=== PATIENT | female | born 1930 | race Caucasian/White ===

== ENCOUNTER 2017-09-03 11:42 | Inpatient (IN) | payer MEDICARE, BC ==
[2017-09-03] MEDS ORDERED: SODIUM CHLORIDE ONE (11:50)
[2017-09-03] MEDS ORDERED: DEXTROSE ONE (11:50)
[2017-09-03] MEDS ORDERED: KCL ONE (11:50)
--- NOTE | 2017-09-03 12:27 | EDM.PDOC ---
ED HPI GENERAL MEDICAL PROBLEM - General Chief Complaint: Lower Extremity Injury/Pain Stated Complaint: POSS STROKE Time Seen by Provider: 09/03/17 12:10 Source of Information: Reports: Patient, RN History Limitations: Reports: No Limitations - History of Present Illness INITIAL COMMENTS - FREE TEXT/NARRATIVE: 87 yr female presents with pain to left leg, family report weakness to left leg and garbled speech. Pt states no pain with to chest and no headache. States some bruising and swelling to left leg for about 1 week. Her son is with her today. Pt is alert and responds appropriately. left leg Pain Score (Numeric/FACES): 6 - Related Data Allergies Allergy/AdvReac Type Severity Reaction Status Date / Time iron Allergy Fainting Verified 02/01/15 18:02 Home Meds: Home Meds Aspirin [Mona Chewable] 81 mg PO DAILY 09/04/17 [History] Clopidogrel [Plavix] 75 mg PO DAILY 09/04/17 [History] Hydrochlorothiazide 25 mg PO DAILY 09/04/17 [History] Latanoprost [Xalatan] 1 drop OP DAILY 09/04/17 [History] Lisinopril [Prinivil] 2 tab PO DAILY 09/04/17 [History] Metoprolol Tartrate [Lopressor] 50 mg PO BID 09/04/17 [History] Multivitamin W/Iron, Minerals [Multivitamins with Iron] 1 each PO DAILY [History] Omeprazole 20 mg PO DAILY 09/04/17 [History] amLODIPine Besylate [Amlodipine Besylate] 10 mg PO DAILY 09/04/17 [History] atorvaSTATin [Lipitor] 40 mg PO BEDTIME 09/04/17 [History] glipiZIDE [Glipizide ER] 10 mg PO DAILY 09/04/17 [History] metFORMIN HCl [Metformin HCl] 1,000 mg PO BIDMEALS 09/04/17 [History] Past Medical History Other HEENT History: blind in R eye, diabetes, 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 Other Cardiovascular History: had a heart pause in between some beats, Other Neuro History: bad balance for a long time at least 5 years- from 2014 Other Hematologic History: iron low years ago got an infusion- alergic reaction - Past Surgical History Other Musculoskeletal Surgeries/Procedures:: L shoulder surgery- cut off ED ROS GENERAL - Review of Systems Review Of Systems: See Below Constitutional: Reports: Weakness, Fatigue, Decreased Appetite HEENT: Reports: No Symptoms, Glasses Respiratory: Reports: No Symptoms Cardiovascular: Reports: No Symptoms Endocrine: Reports: Low Glucose GI/Abdominal: Reports: Decreased Appetite. Denies: Nausea, Stool Incontinence, Vomiting : Reports: No Symptoms Musculoskeletal: Reports: Leg Pain Skin: Reports: No Symptoms Neurological: Reports: Trouble Speaking, Difficulty Walking, Weakness, Change in Speech Psychiatric: Reports: No Symptoms Hematologic/Lymphatic: Reports: No Symptoms Immunologic: Reports: No Symptoms ED EXAM, GENERAL - Physical Exam Exam: See Below Exam Limited By: No Limitations General Appearance: Alert, No Apparent Distress Ears: Hearing Grossly Normal Nose: Normal Inspection Throat/Mouth: Normal Inspection, Normal Voice, No Airway Compromise Head: Atraumatic, Normocephalic Neck: Normal Inspection, Supple, Non-Tender Respiratory/Chest: No Respiratory Distress, Lungs Clear, Normal Breath Sounds Cardiovascular: Normal Peripheral Pulses, Regular Rate, Rhythm, Other (mild swelling to left lower leg) GI/Abdominal: Normal Bowel Sounds, Soft, Non-Tender (Female) Exam: Deferred Rectal (Female) Exam: Deferred Back Exam: Normal Inspection Extremities: Normal Inspection, Leg Pain (left leg pain), Other (left foot pain) . No: Pedal Edema Neurological: Alert, Oriented, Normal Cognition Psychiatric: Normal Affect, Normal Mood Skin Exam: Warm, Dry, Normal Color, Other (Bruising to top of left foot and blister noted to top of foot) Lymphatic: No Adenopathy Course - Vital Signs Last Recorded V/S: Last Vital Signs Temp 98.1 F 09/04/17 01:07 Pulse 76 09/04/17 03:50 Resp 16 09/04/17 03:50 BP 123/47 L 09/04/17 01:07 Pulse Ox 95 09/04/17 01:07 - Orders/Labs/Meds Orders: Active Orders 24 hr Category Date Time Status D Dimer [D-DIMER QUANTITATIVE] [COAG] Stat Lab 09/03/17 12:25 Ordered INR,PT,PROTHROMBIN TIME [COAG] Routine Lab 09/03/17 12:25 Ordered Medication Orders Enoxaparin Sodium (Lovenox) 45 mg SUBCUT Q12H [facility] Last Admin: 09/04/17 06:20 Dose: 40 mg Admin: 09/03/17 18:17 Dose: 45 mg Potassium Chloride/Dextrose/Sod Cl (D5 Ns With 20 Meq Kcl) 1,000 mls @ 200 mls/ hr IV ASDIRECTED [facility] Last Admin: 09/04/17 02:40 Dose: 200 mls/hr Infusion: 09/03/17 16:00 Dose: 75 mls/hr Admin: 09/03/17 14:45 Dose: 200 mls/hr Ceftriaxone Sodium 1 gm/ (Sodium Chloride) 50 mls @ 100 mls/hr IV Q24H [facility] Last Admin: 09/03/17 18:17 Dose: 100 mls/hr Non-Formulary Medication (Hydrocodone/Acetaminophen [Hydrocodon-Acetaminophen 5- 300]) 1 each PO Q6H PRN PRN Reason: Headache Non-Formulary Medication (Lisinopril [Lisinopril]) 30 mg PO DAILY [facility] Tramadol HCl (Ultram) 50 mg PO Q6H PRN PRN Reason: Pain Last Admin: 09/04/17 01:08 Dose: 50 mg Labs: Laboratory Tests 09/03/17 09/03/17 09/03/17 Range/Units 12:25 12:25 12:25 WBC 3.9 L D (4.0-11.0) K/uL RBC 3.25 L (3.80-5.80) M/uL Hgb 11.0 L (11.5-16.5) g/dL Hct 31.5 L (37.0-47.0) % MCV 97 H (76-96) fL MCH 33.8 H (27.0-32.0) pg MCHC 34.9 (31.0-35.0) g/dL RDW 11.9 (11.0-16.0) % Plt Count 135 L D (150-500) K/uL MPV 9.4 (6.0-10.0) fL Neut % (Auto) 93.1 H (45.0-70.0) % Lymph % (Auto) 5.6 L (20.0-40.0) % [place] % (Auto) 1.0 L (3.0-10.0) % Eos % (Auto) 0.0 L (1.0-5.0) % Baso % (Auto) 0.3 (0.0-0.5) % Neut # (Auto) 3.66 (2.00-7.50) K/uL Lymph # (Auto) 0.22 L (1.50-4.00) K/uL [place] # (Auto) 0.04 L (0.20-0.80) K/uL Eos # (Auto) 0.00 L (0.04-0.40) K/uL Baso # (Auto) 0.01 L (0.02-0.10) K/uL PT 10.8 (9.0-11.5) sec INR 1.1 (1.0-3.5) D-Dimer, Quantitative (0-400) ng/mL Sodium 135 L (136-145) mmol/L Potassium 2.8 L* D (3.5-5.1) mmol/L Chloride 95 L (98-107) mmol/L Carbon Dioxide 21.7 D (21.0-32.0) mmol/L Anion Gap 21.1 H (5.0-15.0) mmol/L BUN 26 D (8-26) mg/dL Creatinine 1.32 H D (0.55-1.02) mg/dL Est Cr Clr Drug Dosing TNP Estimated GFR (MDRD) 38 L (>60) MLS/MIN BUN/Creatinine Ratio 19.7 (6-25) Glucose 31 L* D (74-100) mg/dL POC Glucose (74-110) mg/dL Lactic Acid (0.90-1.70) mmol/L Calcium 8.8 (8.5-10.1) mg/dL Total Bilirubin 1.3 H D (0.0-1.0) mg/dL AST 31 (15-37) U/L ALT 25 (12-78) U/L Alkaline Phosphatase 151 H (46-116) U/L Troponin I (0.000-0.060) ng/mL Total Protein 7.4 (6.4-8.2) g/dL Albumin 3.2 L (3.4-5.0) g/dL Globulin 4.2 (2.2-4.2) g/dL Albumin/Globulin Ratio 0.8 (0.8-2.0) TSH, Ultra Sensitive (0.358-3.740) uIU/mL 09/03/17 09/03/17 09/03/17 Range/Units 12:25 12:25 12:25 WBC (4.0-11.0) K/uL RBC (3.80-5.80) M/uL Hgb (11.5-16.5) g/dL Hct (37.0-47.0) % MCV (76-96) fL MCH (27.0-32.0) pg MCHC (31.0-35.0) g/dL RDW (11.0-16.0) % Plt Count (150-500) K/uL MPV (6.0-10.0) fL Neut % (Auto) (45.0-70.0) % Lymph % (Auto) (20.0-40.0) % [place] % (Auto) (3.0-10.0) % Eos % (Auto) (1.0-5.0) % Baso % (Auto) (0.0-0.5) % Neut # (Auto) (2.00-7.50) K/uL Lymph # (Auto) (1.50-4.00) K/uL [place] # (Auto) (0.20-0.80) K/uL Eos # (Auto) (0.04-0.40) K/uL Baso # (Auto) (0.02-0.10) K/uL PT (9.0-11.5) sec INR (1.0-3.5) D-Dimer, Quantitative 4240 H (0-400) ng/mL Sodium (136-145) mmol/L Potassium (3.5-5.1) mmol/L Chloride (98-107) mmol/L Carbon Dioxide (21.0-32.0) mmol/L Anion Gap (5.0-15.0) mmol/L BUN (8-26) mg/dL Creatinine (0.55-1.02) mg/dL Est Cr Clr Drug Dosing Estimated GFR (MDRD) (>60) MLS/MIN BUN/Creatinine Ratio (6-25) Glucose (74-100) mg/dL POC Glucose (74-110) mg/dL Lactic Acid (0.90-1.70) mmol/L Calcium (8.5-10.1) mg/dL Total Bilirubin (0.0-1.0) mg/dL AST (15-37) U/L ALT (12-78) U/L Alkaline Phosphatase (46-116) U/L Troponin I < 0.017 (0.000-0.060) ng/mL Total Protein (6.4-8.2) g/dL Albumin (3.4-5.0) g/dL Globulin (2.2-4.2) g/dL Albumin/Globulin Ratio (0.8-2.0) TSH, Ultra Sensitive 1.825 (0.358-3.740) uIU/mL 09/03/17 09/03/17 09/03/17 Range/Units 12:39 13:17 13:40 WBC (4.0-11.0) K/uL RBC (3.80-5.80) M/uL Hgb (11.5-16.5) g/dL Hct (37.0-47.0) % MCV (76-96) fL MCH (27.0-32.0) pg MCHC (31.0-35.0) g/dL RDW (11.0-16.0) % Plt Count (150-500) K/uL MPV (6.0-10.0) fL Neut % (Auto) (45.0-70.0) % Lymph % (Auto) (20.0-40.0) % [place] % (Auto) (3.0-10.0) % Eos % (Auto) (1.0-5.0) % Baso % (Auto) (0.0-0.5) % Neut # (Auto) (2.00-7.50) K/uL Lymph # (Auto) (1.50-4.00) K/uL [place] # (Auto) (0.20-0.80) K/uL Eos # (Auto) (0.04-0.40) K/uL Baso # (Auto) (0.02-0.10) K/uL PT (9.0-11.5) sec INR (1.0-3.5) D-Dimer, Quantitative (0-400) ng/mL Sodium (136-145) mmol/L Potassium (3.5-5.1) mmol/L Chloride (98-107) mmol/L Carbon Dioxide (21.0-32.0) mmol/L Anion Gap (5.0-15.0) mmol/L BUN (8-26) mg/dL Creatinine (0.55-1.02) mg/dL Est Cr Clr Drug Dosing Estimated GFR (MDRD) (>60) MLS/MIN BUN/Creatinine Ratio (6-25) Glucose (74-100) mg/dL POC Glucose 39 L* 41 L* (74-110) mg/dL Lactic Acid 7.60 H (0.90-1.70) mmol/L Calcium (8.5-10.1) mg/dL Total Bilirubin (0.0-1.0) mg/dL AST (15-37) U/L ALT (12-78) U/L Alkaline Phosphatase (46-116) U/L Troponin I (0.000-0.060) ng/mL Total Protein (6.4-8.2) g/dL Albumin (3.4-5.0) g/dL Globulin (2.2-4.2) g/dL Albumin/Globulin Ratio (0.8-2.0) TSH, Ultra Sensitive (0.358-3.740) uIU/mL Meds: Medications Generic Name Dose Route Start Last Admin Trade Name Freq PRN Reason Stop Dose Admin Enoxaparin Sodium 45 mg 09/03/17 16:15 09/04/17 06:20 Lovenox SUBCUT 40 mg Q12H [facility] Administration Potassium Chloride/Dextrose/Sod Cl 1,000 mls @ 200 mls/hr 09/03/17 14:45 12/13 02:40 D5 Ns With 20 Meq Kcl IV 200 mls/hr ASDIRECTED [facility] Administration Ceftriaxone Sodium 1 gm/ 50 mls @ 100 mls/hr 09/03/17 18:00 09/03/17 18:17 Sodium Chloride IV 100 mls/hr Q24H [facility] Administration Non-Formulary Medication 1 each 09/03/17 17:06 Hydrocodone/Acetaminophen [Hydrocodon-Acetaminophen 5-300] PO Q6H PRN Headache Non-Formulary Medication 30 mg 09/04/17 08:00 Lisinopril [Lisinopril] PO DAILY [facility] Tramadol HCl 50 mg 09/03/17 22:50 09/04/17 01:08 Ultram PO 50 mg Q6H PRN Administration Pain Discontinued Medications Generic Name Dose Route Start Last Admin Trade Name Gissell PRN Reason Stop Dose Admin Dextrose/Water 50 ml 09/03/17 14:43 09/03/17 14:52 Dextrose 50% In Water IVPUSH 09/03/17 14:44 50 ml ONETIME ONE Administration Potassium Chloride/Dextrose/Sod Cl Confirm 09/03/17 14:23 09/03/17 17:38 D5 Ns With 20 Meq Kcl Administered 09/03/17 14:24 Not Given Dose 1,000 mls @ as directed .ROUTE .STK-MED ONE Potassium Chloride 40 meq 09/03/17 13:04 09/03/17 13:15 Klor-Con M20 PO 09/03/17 13:05 40 meq ONETIME ONE Administration Tramadol HCl Confirm 09/03/17 23:02 09/04/17 01:08 Ultram Administered 09/03/17 23:03 Not Given Dose 50 mg .ROUTE .STK-MED ONE - Re-Assessments/Exams Free Text/Narrative Re-Assessment/Exam: 09/03/17 16:[address] results and TC from radiologist confirming head CT is negative. D-dimer checked and is positive. Pt does have mild swelling to left leg and bruising to left foot. hypoglycemia and hypokalemia noted. [place] juice and sandwich given to pt and tolerated well. Repeat blood sugar still hypoglycemia. KCL 40 meq liquid PO given and tolerated well. Chest x- ray completed and no consolidation noted. Pain to left ankle and foot. X-ray completed and no fracture noted. Consult with Dr Marilu MD back-up today, recommend admit to observation. Dr Michel assess pt and reviewed labs and x-ray with this provider. Reviewed results with pt and son and discussed plan. Will send for U/S tomorrow to check for DVT. Will start Lovenox now, prophylactically. Lactic acid is elevated and no leukocytosis noted, but elevated neutrophils noted. Will check blood cultures X 2. Mild temperature noted. Pt offers minimal complaints, just pain to foot and no appetite. Pt is alert and sitting with HOB elevated 60* and no respiratory distress, no pedal edema, and no crackles to lungs and no chest pain. Will check U/A when pt able to void or get sterile quick cath. IV D5W 50 Ml given, then started IV with D5NS with 20 Kcl started at 200cc/hr. Will monitor pt closely for signs of infection, and monitor blood sugars, and recheck labs in am. Departure - Departure Time of Disposition: 14:55 Disposition: Refer to Observation Condition: Fair Clinical Impression: Hypokalemia, Hypoglycemia, Pain in left foot - Discharge Information - Problem List & Annotations (1) Hypokalemia SNOMED Code(s): 23031277 Code(s): E87.6 - HYPOKALEMIA Status: Acute Current Visit: Yes (2) Hypoglycemia SNOMED Code(s): 265136167 Code(s): E16.2 - HYPOGLYCEMIA, UNSPECIFIED Status: Acute Current Visit: Yes (3) Pain in left foot SNOMED Code(s): 76366510 Code(s): M79.672 - PAIN IN LEFT FOOT Status: Acute Current Visit: Yes (4) Hypothyroid SNOMED Code(s): 16745339 Code(s): E03.9 - HYPOTHYROIDISM, UNSPECIFIED Status: Acute Current Visit : Yes - Problem List Review Problem List Initiated/Reviewed/Updated: Yes - My Orders Last 24 Hours: My Active Orders 09/03/17 12:25 D Dimer [D-DIMER QUANTITATIVE] [COAG] Stat INR,PT,PROTHROMBIN TIME [COAG] Routine - Assessment/Plan Last 24 Hours: My Active Orders 09/03/17 12:25 D Dimer [D-DIMER QUANTITATIVE] [COAG] Stat INR,PT,PROTHROMBIN TIME [COAG] Routine Plan: 09/03/17 16:[address] results and TC from radiologist confirming head CT is negative. D-dimer checked and is positive. Pt does have mild swelling to left leg and bruising to left foot. hypoglycemia and hypokalemia noted. [place] juice and sandwich given to pt and tolerated well. Repeat blood sugar still hypoglycemia. KCL 40 meq liquid PO given and tolerated well. Chest x- ray completed and no consolidation noted. Pain to left ankle and foot. X-ray completed and no fracture noted. Consult with Dr Marilu MD back-up today, recommend admit to observation. Dr Michel assess pt and reviewed labs and x-ray with this provider. Reviewed results with pt and son and discussed plan. Will send for U/S tomorrow to check for DVT. Will start Lovenox now, prophylactically. Lactic acid is elevated and no leukocytosis noted, but elevated neutrophils noted. Will check blood cultures X 2. Mild temperature noted. Pt offers minimal complaints, just pain to foot and no appetite. Pt is alert and sitting with HOB elevated 60* and no respiratory distress, no pedal edema, and no crackles to lungs and no chest pain. Will check U/A when pt able to void or get sterile quick cath. IV D5W 50 Ml given, then started IV with D5NS with 20 Kcl started at 200cc/hr. Will monitor pt closely for signs of infection, and monitor blood sugars, and recheck labs in am. 17:31 U/A obtained. Negative nitrite and negative leuk est. With this increase in lactic acid and low WBC with elevated neutrophil, will start Rocephin 1 gm IV now and daily.
[2017-09-03] MEDS ORDERED: Potassium Chloride 20 MEQ Tab.ER PO ONE (13:04)
[2017-09-03] MEDS: Dextrose 5%-0.9% NaCl with KCl 1,000 ML ONE ×2 (14:40→17:38)
[2017-09-03] MEDS ORDERED: 50% Dextrose in Water 50 ML Syringe IVPUSH ONE (14:43)
[2017-09-03] MEDS: Dextrose 5%-0.9% NaCl with KCl 1,000 ML IV SCH (14:45)
[2017-09-03] MEDS ORDERED: [UNRECOGNIZED DRUG - OTHER] PO PRN (17:06)
[2017-09-03] MEDS ORDERED: ACETAMINOPHEN PO PRN (17:06)
[2017-09-03] MEDS ORDERED: HYDROCODONE PO PRN (17:06)
--- NOTE | 2017-09-03 17:58 | CT ---
DATE OF SERVICE: 09/03/17 CLINICAL DATA: POSSIBLE STROKE UNENHANCED BRAIN CT: Multislice acquisition through the brain without IV contrast was performed. Comparison is made to a prior exam dated 02/01/15. There is diffuse cerebral atrophy. There are periventricular lucencies bilaterally consistent with small vessel ischemic change. No masses or mass effect. No intracranial hemorrhage. No evidence of acute or subacute infarct. No osseous abnormalities. IMPRESSION: No acute intracranial abnormalities. [id number] [facility]
--- NOTE | 2017-09-03 18:00 | CR ---
DATE OF SERVICE: 09/03/17 CLINICAL DATA: possible stroke AP PORTABLE CHEST: No priors. The heart size is within normal limits. The aorta is ectatic. 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 The lungs are clear. No pneumothorax. No pleural effusions. No areas of consolidation. IMPRESSION: No evidence of acute intrathoracic disease. [id number] [facility]
--- NOTE | 2017-09-03 18:04 | CR ---
DATE OF SERVICE: 09/03/17 CLINICAL DATA: pain to foot LEFT FOOT: There is diffuse osteopenia. There are osteoarthritic changes involving multiple joints. There is a faint lucency through the base of the 5th metatarsal which may represent a nondisplaced fracture. Clinical correlation is recommended. No other evidence of fracture. There are vascular calcifications in the soft tissues. [id number] [facility]
--- NOTE | 2017-09-03 18:12 | CR ---
DATE OF SERVICE: 09/03/17 CLINICAL DATA: foot and ankle pain LEFT ANKLE: There is diffuse osteopenia. No acute fracture or dislocation. No lytic or blastic bone lesions. There are vascular calcifications in the soft tissues. [id number] [facility]
[2017-09-03] MEDS: Enoxaparin 40 MG/0.4 ML Syringe SUBCUT SCH (18:17)
[2017-09-03] MEDS: cefTRIAXone 1 GM in Sodium Chloride 0.9% 50 ML IV SCH (18:17)
[2017-09-03] MEDS ORDERED: traMADol 50 MG Tab ONE (23:02)
[2017-09-04] MEDS: traMADol 50 MG Tab PO PRN ×3 (01:08→20:24)
[2017-09-04] MEDS: Dextrose 5%-0.9% NaCl with KCl 1,000 ML IV SCH (02:40)
[2017-09-04] MEDS: Enoxaparin 40 MG/0.4 ML Syringe SUBCUT SCH (06:20)
[2017-09-04] MEDS ORDERED: Clopidogrel 75 MG Tab PO SCH (08:00)
[2017-09-04] MEDS ORDERED: LISINOPRIL 30 MG PO SCH (08:00)
[2017-09-04] MEDS ORDERED: Lisinopril 20 MG Tab PO SCH (08:45)
[2017-09-04] MEDS ORDERED: Potassium Chloride 20 MEQ Tab.ER PO SCH (08:45)
[2017-09-04] MEDS ORDERED: Metoprolol Tartrate 50 MG Tab ONE (09:08)
[2017-09-04] MEDS ORDERED: Potassium Chloride 20 MEQ Tab.ER ONE (09:09)
[2017-09-04] MEDS ORDERED: metFORMIN 1,000 MG Tab ONE (09:09)
[2017-09-04] MEDS ORDERED: Sodium Chloride 0.45% with KCl 1,000 ML ONE (09:10)
[2017-09-04] MEDS: NS + KCl 20mEq/L 1,000 ML IV SCH (10:15)
[2017-09-04] MEDS: Pantoprazole 40 MG Vial IVPUSH SCH (10:15)
[2017-09-04] MEDS: amLODIPine 10 MG Tab PO SCH (10:15)
[2017-09-04] MEDS: Metoprolol Tartrate 50 MG Tab PO SCH ×2 (10:28→20:12)
[2017-09-04] MEDS: Non-Formulary Medication 1 Each (Latanoprost [Xalatan 0.005% Ophth Soln] 1 DROP) EYEBOTH SCH (13:34)
--- NOTE | 2017-09-04 15:02 | PCM.PN ---
- General Info Date of Service: 09/04/17 Admission Dx/Problem (Free Text): sepsis Subjective Update: Pt states she is feeling better, but is still having some pain to her left foot and ankle. Functional Status: Reports: Tolerating Diet, Urinating - Review of Systems General: Reports: Weakness HEENT: Reports: No Symptoms, Glasses Pulmonary: Reports: No Symptoms. Denies: Shortness of Breath, Cough Cardiovascular: Reports: No Symptoms. Denies: Chest Pain, Dyspnea on Exertion, Lightheadedness Gastrointestinal: Reports: No Symptoms. Denies: Abdominal Pain, Constipation, Decreased Appetite Genitourinary: Reports: Other (decreased urination) Musculoskeletal: Reports: Foot Pain (left foot pain) Skin: Reports: Other (blister to top of right foot, cut toe on Sunday when trimming toenails) Neurological: Reports: No Symptoms Psychiatric: Reports: No Symptoms - Patient Data Vitals - Most Recent: Last Vital Signs Temp 97.6 F 09/04/17 12:29 Pulse 81 09/04/17 12:29 Resp 16 09/04/17 12:29 BP 116/49 L 09/04/17 12:29 Pulse Ox 92 L 09/04/17 12:29 Weight - Most Recent: 111 lb 9.6 oz I&O - Last 24 Hours: Intake & Output 09/03/17 09/04/17 09/04/17 22:59 06:59 14:59 Intake Total 1620 Balance 1620 Lab Results Last 24 Hours: Laboratory Results - last 24 hr 09/03/17 09/03/17 09/03/17 Range/Units 15:11 17:00 17:20 WBC (4.0-11.0) K/uL RBC (3.80-5.80) M/uL Hgb (11.5-16.5) g/dL Hct (37.0-47.0) % MCV (76-96) fL MCH (27.0-32.0) pg MCHC (31.0-35.0) g/dL RDW (11.0-16.0) % Plt Count (150-500) K/uL MPV (6.0-10.0) fL Neut % (Auto) (45.0-70.0) % Lymph % (Auto) (20.0-40.0) % [place] % (Auto) (3.0-10.0) % Eos % (Auto) (1.0-5.0) % Baso % (Auto) (0.0-0.5) % Neut # (Auto) (2.00-7.50) K/uL Lymph # (Auto) (1.50-4.00) K/uL [place] # (Auto) (0.20-0.80) K/uL Eos # (Auto) (0.04-0.40) K/uL Baso # (Auto) (0.02-0.10) K/uL Sodium (136-145) mmol/L Potassium (3.5-5.1) mmol/L Chloride (98-107) mmol/L Carbon Dioxide (21.0-32.0) mmol/L Anion Gap (5.0-15.0) mmol/L BUN (8-26) mg/dL Creatinine (0.55-1.02) mg/dL Est Cr Clr Drug Dosing mL/min Estimated GFR (MDRD) (>60) MLS/MIN BUN/Creatinine Ratio (6-25) Glucose (74-100) mg/dL POC Glucose 170 H 194 H (74-110) mg/dL Calcium (8.5-10.1) mg/dL Urine Color Yellow Urine Appearance Slightly cloudy (CLEAR) Urine pH 5.5 (5.0-8.0) Ur Specific [place] 1.015 (1.003-1.030) Urine Protein 100 H (NEGATIVE) mg/dL Urine Glucose (UA) Negative (NEGATIVE) mg/dL Urine Ketones Trace H (NEGATIVE) mg/dL Urine Occult Blood Small H (NEGATIVE) Urine Nitrite Negative (NEGATIVE) Urine Bilirubin Negative (NEGATIVE) Urine Urobilinogen 0.2 (0.2-1.0) E.U./dL Ur Leukocyte Esterase Negative (NEGATIVE) Urine RBC 0-5 H /HPF Urine WBC 0-5 H /HPF Urine Bacteria Many H /HPF 09/04/17 09/04/17 09/04/17 Range/Units 01:19 07:20 07:20 WBC 6.9 D (4.0-11.0) K/uL RBC 2.62 L (3.80-5.80) M/uL Hgb 8.7 L D (11.5-16.5) g/dL Hct 24.9 L D (37.0-47.0) % MCV 95 (76-96) fL MCH 33.2 H (27.0-32.0) pg MCHC 34.9 (31.0-35.0) g/dL RDW 11.7 (11.0-16.0) % Plt Count 83 L D (150-500) K/uL MPV 10.4 H (6.0-10.0) fL Neut % (Auto) 86.7 H (45.0-70.0) % Lymph % (Auto) 7.4 L (20.0-40.0) % [place] % (Auto) 5.8 (3.0-10.0) % Eos % (Auto) 0.1 L (1.0-5.0) % Baso % (Auto) 0.0 (0.0-0.5) % Neut # (Auto) 6.00 (2.00-7.50) K/uL Lymph # (Auto) 0.51 L (1.50-4.00) K/uL [place] # (Auto) 0.40 (0.20-0.80) K/uL Eos # (Auto) 0.01 L (0.04-0.40) K/uL Baso # (Auto) 0.00 L (0.02-0.10) K/uL Sodium 135 L (136-145) mmol/L Potassium 3.1 L (3.5-5.1) mmol/L Chloride 99 (98-107) mmol/L Carbon Dioxide 23.1 (21.0-32.0) mmol/L Anion Gap 16.0 H (5.0-15.0) mmol/L BUN 31 H (8-26) mg/dL Creatinine 1.71 H D (0.55-1.02) mg/dL Est Cr Clr Drug Dosing 17.25 mL/min Estimated GFR (MDRD) 28 L (>60) MLS/MIN BUN/Creatinine Ratio 18.1 (6-25) Glucose 144 H D (74-100) mg/dL POC Glucose 154 H (74-110) mg/dL Calcium 8.3 L (8.5-10.1) mg/dL Urine Color Urine Appearance (CLEAR) Urine pH (5.0-8.0) Ur Specific [place] (1.003-1.030) Urine Protein (NEGATIVE) mg/dL Urine Glucose (UA) (NEGATIVE) mg/dL Urine Ketones (NEGATIVE) mg/dL Urine Occult Blood (NEGATIVE) Urine Nitrite (NEGATIVE) Urine Bilirubin (NEGATIVE) Urine Urobilinogen (0.2-1.0) E.U./dL Ur Leukocyte Esterase (NEGATIVE) Urine RBC /HPF Urine WBC /HPF Urine Bacteria /HPF 09/04/17 Range/Units 14:00 WBC (4.0-11.0) K/uL RBC (3.80-5.80) M/uL Hgb 9.1 L (11.5-16.5) g/dL Hct 25.8 L (37.0-47.0) % MCV (76-96) fL MCH (27.0-32.0) pg MCHC (31.0-35.0) g/dL RDW (11.0-16.0) % Plt Count (150-500) K/uL MPV (6.0-10.0) fL Neut % (Auto) (45.0-70.0) % Lymph % (Auto) (20.0-40.0) % [place] % (Auto) (3.0-10.0) % Eos % (Auto) (1.0-5.0) % Baso % (Auto) (0.0-0.5) % Neut # (Auto) (2.00-7.50) K/uL Lymph # (Auto) (1.50-4.00) K/uL [place] # (Auto) (0.20-0.80) K/uL Eos # (Auto) (0.04-0.40) K/uL Baso # (Auto) (0.02-0.10) K/uL Sodium (136-145) mmol/L Potassium (3.5-5.1) mmol/L Chloride (98-107) mmol/L Carbon Dioxide (21.0-32.0) mmol/L Anion Gap (5.0-15.0) mmol/L BUN (8-26) mg/dL Creatinine (0.55-1.02) mg/dL Est Cr Clr Drug Dosing mL/min Estimated GFR (MDRD) (>60) MLS/MIN BUN/Creatinine Ratio (6-25) Glucose (74-100) mg/dL POC Glucose (74-110) mg/dL Calcium (8.5-10.1) mg/dL Urine Color Urine Appearance (CLEAR) Urine pH (5.0-8.0) Ur Specific [place] (1.003-1.030) Urine Protein (NEGATIVE) mg/dL Urine Glucose (UA) (NEGATIVE) mg/dL Urine Ketones (NEGATIVE) mg/dL Urine Occult Blood (NEGATIVE) Urine Nitrite (NEGATIVE) Urine Bilirubin (NEGATIVE) Urine Urobilinogen (0.2-1.0) E.U./dL Ur Leukocyte Esterase (NEGATIVE) Urine RBC /HPF Urine WBC /HPF Urine Bacteria /HPF [place] Results Last 24 Hours: Microbiology 09/04/17 09:17 Gram Stain - Preliminary Foot, Left 09/03/17 14:56 Clostridium difficile (PCR) - Final Stool / Feces NEGATIVE CDIFF TOXIN Med Orders - Current: Current Medications Hydrocodone Bitart/Acetaminophen ([place] 325-5 Mg) 1 tab PO Q6H PRN PRN Reason: Pain Amlodipine Besylate (Norvasc) 10 mg PO DAILY [facility] Last Admin: 09/04/17 10:15 Dose: 10 mg Atorvastatin Calcium (Lipitor) 40 mg PO DAILY [facility] Clopidogrel Bisulfate (Plavix) 75 mg PO DAILY [facility] Last Admin: 09/04/17 10:38 Dose: Not Given Ceftriaxone Sodium 1 gm/ (Sodium Chloride) 50 mls @ 100 mls/hr IV Q24H [facility] Last Admin: 09/03/17 18:17 Dose: 100 mls/hr Potassium Chloride/Sodium Chloride (Normal Saline With 20 Meq Kcl) 1,000 mls @ 75 mls/hr IV ASDIRECTED [facility] Last Admin: 09/04/17 10:15 Dose: 75 mls/hr Lisinopril (Prinivil) 40 mg PO DAILY [facility] Last Admin: 09/04/17 10:15 Dose: 40 mg Metformin HCl (Glucophage) 1,000 mg PO BIDMEALS [facility] Metoprolol Tartrate (Lopressor) 50 mg PO BID [facility] Last Admin: 09/04/17 10:28 Dose: 50 mg Non-Formulary Medication (Latanoprost [Xalatan 0.005% Ophth Soln]) 1 drop EYEBOTH DAILY [facility] Last Admin: 09/04/17 13:34 Dose: Not Given Omeprazole (Omeprazole) 20 mg PO DAILY [facility] Pantoprazole Sodium (Protonix Iv) 40 mg IVPUSH DAILY [facility] Last Admin: 09/04/17 10:15 Dose: 40 mg Potassium Chloride (Klor-Con M20) 20 meq PO DAILY [facility] Last Admin: 09/04/17 10:15 Dose: 20 meq Tramadol HCl (Ultram) 50 mg PO Q6H PRN PRN Reason: Pain Last Admin: 09/04/17 08:48 Dose: 50 mg Discontinued Medications Dextrose/Water (Dextrose 50% In Water) 50 ml IVPUSH ONETIME ONE Stop: 09/03/17 14:44 Last Admin: 09/03/17 14:52 Dose: 50 ml Enoxaparin Sodium (Lovenox) 45 mg SUBCUT Q12H [facility] Last Admin: 09/04/17 06:20 Dose: 40 mg Potassium Chloride/Dextrose/Sod Cl (D5 Ns With 20 Meq Kcl) Confirm Administered Dose 1,000 mls @ as directed .ROUTE .STK-MED ONE Stop: 09/03/17 14:24 Last Admin: 09/03/17 17:38 Dose: Not Given Potassium Chloride/Dextrose/Sod Cl (D5 Ns With 20 Meq Kcl) 1,000 mls @ 200 mls/ hr IV ASDIRECTED [facility] Last Admin: 09/04/17 02:40 Dose: 200 mls/hr Potassium Chloride/Sodium Chloride (1/2 Ns With 20 Meq Kcl) Confirm Administered Dose 1,000 mls @ as directed .ROUTE .STK-MED ONE Stop: 09/04/17 09:11 Last Admin: 09/04/17 10:31 Dose: Not Given Metformin HCl (Glucophage) Confirm Administered Dose 1,000 mg .ROUTE .STK-MED ONE Stop: 09/04/17 09:10 Last Admin: 09/04/17 10:07 Dose: Not Given Metoprolol Tartrate (Lopressor) Confirm Administered Dose 50 mg .ROUTE .STK-MED ONE Stop: 09/04/17 09:09 Last Admin: 09/04/17 10:06 Dose: Not Given Non-Formulary Medication (Hydrocodone/Acetaminophen [Hydrocodon-Acetaminophen 5- 300]) 1 each PO Q6H PRN PRN Reason: Headache Potassium Chloride (Klor-Con M20) 40 meq PO ONETIME ONE Stop: 09/03/17 13:05 Last Admin: 09/03/17 13:15 Dose: 40 meq Potassium Chloride (Klor-Con M20) Confirm Administered Dose 20 meq .ROUTE .STK- MED ONE Stop: 09/04/17 09:10 Last Admin: 09/04/17 10:06 Dose: Not Given Potassium Chloride/Dextrose/Sod Cl (D5 Ns With 20 Meq Kcl) 1,000 ml .ROUTE .STK -MED ONE Stop: 09/03/17 11:51 Tramadol HCl (Ultram) Confirm Administered Dose 50 mg .ROUTE .STK-MED ONE Stop: 09/03/17 23:03 Last Admin: 09/04/17 01:08 Dose: Not Given - Exam Quality Assessment: No: Supplemental Oxygen, Urine Catheter General: Alert, Oriented, No Acute Distress HEENT: Mucous Membr. Moist/[place] Neck: Supple, Trachea Midline Lungs: Clear to Auscultation, Normal Respiratory Effort. No: Decreased Breath Sounds, Crackles Cardiovascular: Regular Rate, Regular Rhythm GI/Abdominal Exam: Normal Bowel Sounds, Soft, Non-Tender, No Distention (Female) Exam: Deferred Back Exam: Normal Inspection Extremities: No Pedal Edema, Normal Capillary Refill, Other (foot and ankle pain ) Peripheral Pulses: 2+: Dorsalis Pedis (L), Dorsalis Pedis (R) Skin: Warm, Dry, Other (blister, slightly larger than yesterday, to top of left foot. Small laceration to toe on left foot) Neurological: No New Focal Deficit, Normal Speech Psy/Mental Status: Alert, Normal Affect, Normal Mood - Problem List & Annotations (1) Hypokalemia SNOMED Code(s): 69129752 Code(s): E87.6 - HYPOKALEMIA Status: Acute Current Visit: Yes (2) Hypoglycemia SNOMED Code(s): 679611543 Code(s): E16.2 - HYPOGLYCEMIA, UNSPECIFIED Status: Acute Current Visit: Yes (3) Pain in left foot SNOMED Code(s): 63016411 Code(s): M79.672 - PAIN IN LEFT FOOT Status: Acute Current Visit: Yes (4) Hypothyroid SNOMED Code(s): 38394474 Code(s): E03.9 - HYPOTHYROIDISM, UNSPECIFIED Status: Acute Current Visit : Yes (5) Sepsis SNOMED Code(s): 70523323 Code(s): A41.9 - SEPSIS, UNSPECIFIED ORGANISM Status: Acute Current Visit : Yes - Problem List Review Problem List Initiated/Reviewed/Updated: Yes - My Orders Last 24 Hours: My Active Orders 09/03/17 14:40 Patient Status [ADT] Routine 09/03/17 14:56 CLOSTRIDIUM DIFFICILE BY PCR [RM] Stat 09/03/17 14:58 Telemetry Monitoring [Cardiac Monitoring] [RC] 09/03/17 15:15 Insert Urinary Catheter [OM.PC] Stat 09/03/17 15:34 CULTURE BLOOD [BC] Stat 09/03/17 16:27 CULTURE BLOOD [BC] Stat 09/03/17 17:00 CULTURE URINE [RM] Routine 09/03/17 18:00 cefTRIAXone [Rocephin] 1 gm Sodium Chloride 0.9% [Normal Saline] 50 ml IV Q24H 09/03/17 22:50 traMADol [Ultram] 50 mg PO Q6H PRN 09/04/17 01:10 Blood Glucose Check, Bedside [RC] ,,09/04/17 06:58 Urinary Catheter Assessment [RC] ASDIRECTED 09/04/17 08:00 Clopidogrel [Plavix] 75 mg PO DAILY Pantoprazole [ProTONIX IV] 40 mg IVPUSH DAILY 09/04/17 08:14 Guaiac [OCCULT BLOOD DIAGNOSTIC] [OP] Routine 09/04/17 08:29 Patient Status [ADT] Routine Height and Weight [RC] DAILY Oxygen Therapy [RC] PRN Up With Assistance [RC] ASDIRECTED Vital Signs [RC] Q4H 09/04/17 08:45 Latanoprost [Xalatan 0.005% Ophth Soln] 1 drop EYEBOTH DAILY Lisinopril [Prinivil] 40 mg PO DAILY Metoprolol Tartrate [Lopressor] 50 mg PO BID NS + KCl 20mEq/L [Normal Saline with 20 mEq KCl] 1,000 ml IV ASDIRECTED Potassium Chloride [Klor-Con M20] 20 meq PO DAILY amLODIPine [Norvasc] 10 mg PO DAILY 09/04/17 09:17 CULTURE WOUND + SMEAR [RM] Routine 09/04/17 10:26 CULTURE MRSA SURVEY [RM] Routine 09/04/17 14:05 Acetaminophen/HYDROcodone [[place] 325-5 MG] 1 tab PO Q6H PRN 09/04/17 17:00 metFORMIN [Glucophage] 1,000 mg PO BIDMEALS 09/04/17 Breakfast Consistent Carbohydrate Diet [DIET] 09/05/17 07:30 BASIC METABOLIC PANEL,BMP [CHEM] Routine CBC WITH AUTO DIFF [HEME] Routine 09/05/17 08:00 Omeprazole 20 mg PO DAILY atorvaSTATin [Lipitor] 40 mg PO DAILY - Plan Plan:: Pt is feeling better and looking better. She is sitting in the recliner chair and having breakfast. Dr Michel was able to consult and visit pt this am and aspirated blister to right foot. Sepsis probably related to cut on toe from pt trimming toenails on Sunday and use of rubber clogs to feet with little ventilation and heat to area. Will keep area clean and dry. Waiting from blood cultures, urine culture and now aspirate from blister. Platelets and hgb lower today. Will check stool for hemoccult and start pt on Protonix. Will hold the lovenox, ASA and Plavix and repeat H/H this afternoon. Pt offers no complaints of GI distress. She has an improved appetite. Her blood sugar is back to normal. Will hold the glipizide. IV fluids will be changed to NS w 20 meq KCL at 75 cc/hr. Will add daily potassium 20 meq PO after a meal. Potassium was low today. No temperature noted and BP is normal. Will start pt on home medications, but hold the Glipizide, vitamen, hold Atorvastatin, and hold th Plavix. Continue with Rocephin 1 gm IV daily, pending results of cultures. Urine remains straw colored and not dark. Continue to monitor pt closely for any signs on increase in infection.
[2017-09-04] MEDS: metFORMIN 1,000 MG Tab PO SCH (18:05)
[2017-09-04] MEDS: cefTRIAXone 1 GM in Sodium Chloride 0.9% 50 ML IV SCH (18:05)
[2017-09-04] MEDS: Acetaminophen/HYDROcodone 325-5 MG Tab PO PRN (19:15)
[2017-09-05] MEDS: NS + KCl 20mEq/L 1,000 ML IV SCH ×2 (00:29→00:30)
[2017-09-05] MEDS ORDERED: Omeprazole 20 MG Cap.CR PO SCH (08:00)
[2017-09-05] MEDS ORDERED: atorvaSTATin 40 MG Tab PO SCH (08:00)
[2017-09-05] MEDS: amLODIPine 10 MG Tab PO SCH (08:24)
[2017-09-05] MEDS: Pantoprazole 40 MG Vial IVPUSH SCH (08:24)
[2017-09-05] MEDS: Metoprolol Tartrate 50 MG Tab PO SCH ×2 (08:25→19:30)
[2017-09-05] MEDS ORDERED: Enoxaparin 60 MG/0.6 ML Syringe ONE (11:06)
[2017-09-05] MEDS ORDERED: Enoxaparin 40 MG/0.4 ML Syringe ONE (11:06)
[2017-09-05] MEDS: Acetaminophen/HYDROcodone 325-5 MG Tab PO PRN (11:29)
[2017-09-05] MEDS: Non-Formulary Medication 1 Each (Latanoprost [Xalatan 0.005% Ophth Soln] 1 DROP) EYEBOTH SCH (16:43)
[2017-09-05] MEDS: metFORMIN 1,000 MG Tab PO SCH ×2 (16:43→18:19)
--- NOTE | 2017-09-05 17:15 | PCM.PN ---
- General Info Date of Service: 09/05/17 Admission Dx/Problem (Free Text): sepsis R/O DVT Hyperkalemia Low platelets Left leg pain Subjective Update: Pt states she is feeling tired after her company yesterday, but is feeling better. Continues with pain to left lower leg and foot when touched. Functional Status: Reports: Tolerating Diet, Urinating - Review of Systems General: Reports: Fatigue. Denies: Fever, Chills HEENT: Reports: No Symptoms, Glasses Pulmonary: Reports: No Symptoms. Denies: Shortness of Breath, Cough Cardiovascular: Reports: No Symptoms. Denies: Chest Pain, Dyspnea on Exertion Gastrointestinal: Reports: No Symptoms Genitourinary: Reports: No Symptoms Musculoskeletal: Reports: Leg Pain Skin: Reports: Other (redness to top of foot) Neurological: Reports: No Symptoms Psychiatric: Reports: No Symptoms - Patient Data Vitals - Most Recent: Last Vital Signs Temp 98.6 F 09/05/17 08:33 Pulse 92 09/05/17 08:33 Resp 20 09/05/17 04:00 BP 152/69 H 09/05/17 08:33 Pulse Ox 97 09/05/17 04:00 Weight - Most Recent: 116 lb I&O - Last 24 Hours: Intake & Output 09/05/17 09/05/17 09/05/17 06:59 14:59 22:59 Intake Total 1100 Output Total 250 Balance 850 Lab Results Last 24 Hours: Laboratory Results - last 24 hr 09/05/17 09/05/17 Range/Units 07:30 07:30 WBC 11.2 H D (4.0-11.0) K/uL RBC 2.94 L (3.80-5.80) M/uL Hgb 9.8 L (11.5-16.5) g/dL Hct 28.1 L (37.0-47.0) % MCV 96 (76-96) fL MCH 33.3 H (27.0-32.0) pg MCHC 34.9 (31.0-35.0) g/dL RDW 11.8 (11.0-16.0) % Plt Count 98 L (150-500) K/uL MPV 10.0 (6.0-10.0) fL Neut % (Auto) 83.4 H (45.0-70.0) % Lymph % (Auto) 7.7 L (20.0-40.0) % [place] % (Auto) 8.1 (3.0-10.0) % Eos % (Auto) 0.7 L (1.0-5.0) % Baso % (Auto) 0.1 (0.0-0.5) % Neut # (Auto) 9.37 H (2.00-7.50) K/uL Lymph # (Auto) 0.87 L (1.50-4.00) K/uL [place] # (Auto) 0.91 H (0.20-0.80) K/uL Eos # (Auto) 0.08 (0.04-0.40) K/uL Baso # (Auto) 0.01 L (0.02-0.10) K/uL Sodium 134 L (136-145) mmol/L Potassium 5.6 H D (3.5-5.1) mmol/L Chloride 102 (98-107) mmol/L Carbon Dioxide 22.0 (21.0-32.0) mmol/L Anion Gap 15.6 H (5.0-15.0) mmol/L BUN 40 H D (8-26) mg/dL Creatinine 2.23 H D (0.55-1.02) mg/dL Est Cr Clr Drug Dosing 13.67 mL/min Estimated GFR (MDRD) 21 L (>60) MLS/MIN BUN/Creatinine Ratio 17.9 (6-25) Glucose 73 L D (74-100) mg/dL Calcium 8.9 (8.5-10.1) mg/dL [place] Results Last 24 Hours: Microbiology 09/03/17 16:27 Aerobic Blood Culture - Preliminary Blood Anaerobic Blood Culture - Preliminary NO GROWTH AFTER 2 DAYS 09/03/17 15:34 Aerobic Blood Culture - Preliminary Blood Anaerobic Blood Culture - Preliminary NO GROWTH AFTER 2 DAYS 09/04/17 09:17 Gram Stain - Preliminary Foot, Left Wound Culture - Preliminary NO GROWTH AFTER 1 DAY 09/04/17 10:26 MRSA Surveillance Culture - Final Nares, Unspecified NO MRSA ISOLATED 09/04/17 08:00 Gram Stain - Final Blood Med Orders - Current: Current Medications Hydrocodone Bitart/Acetaminophen ([place] 325-5 Mg) 1 tab PO Q6H PRN PRN Reason: Pain Last Admin: 09/05/17 11:29 Dose: 1 tab Amlodipine Besylate (Norvasc) 10 mg PO DAILY [facility] Last Admin: 09/05/17 08:24 Dose: 10 mg Atorvastatin Calcium (Lipitor) 40 mg PO DAILY [facility] Clopidogrel Bisulfate (Plavix) 75 mg PO DAILY [facility] Last Admin: 09/04/17 10:38 Dose: Not Given Ceftriaxone Sodium 1 gm/ (Sodium Chloride) 50 mls @ 100 mls/hr IV Q24H [facility] Last Admin: 09/04/17 18:05 Dose: 100 mls/hr Metformin HCl (Glucophage) 1,000 mg PO BIDMEALS [facility] Last Admin: 09/05/17 16:43 Dose: Not Given Metoprolol Tartrate (Lopressor) 50 mg PO BID [facility] Last Admin: 09/05/17 08:25 Dose: 50 mg Non-Formulary Medication (Latanoprost [Xalatan 0.005% Ophth Soln]) 1 drop EYEBOTH DAILY [facility] Last Admin: 09/05/17 16:43 Dose: Not Given Omeprazole (Omeprazole) 20 mg PO DAILY [facility] Pantoprazole Sodium (Protonix Iv) 40 mg IVPUSH DAILY [facility] Last Admin: 09/05/17 08:24 Dose: 40 mg Tramadol HCl (Ultram) 50 mg PO Q6H PRN PRN Reason: Pain Last Admin: 09/04/17 20:24 Dose: 50 mg Discontinued Medications Dextrose/Water (Dextrose 50% In Water) 50 ml IVPUSH ONETIME ONE Stop: 09/03/17 14:44 Last Admin: 09/03/17 14:52 Dose: 50 ml Enoxaparin Sodium (Lovenox) 45 mg SUBCUT Q12H [facility] Last Admin: 09/04/17 06:20 Dose: 40 mg Enoxaparin Sodium (Lovenox) Confirm Administered Dose 40 mg .ROUTE .STK-MED ONE Stop: 09/05/17 11:07 Enoxaparin Sodium (Lovenox) Confirm Administered Dose 60 mg .ROUTE .STK-MED ONE Stop: 09/05/17 11:07 Potassium Chloride/Dextrose/Sod Cl (D5 Ns With 20 Meq Kcl) Confirm Administered Dose 1,000 mls @ as directed .ROUTE .STK-MED ONE Stop: 09/03/17 14:24 Last Admin: 09/03/17 17:38 Dose: Not Given Potassium Chloride/Dextrose/Sod Cl (D5 Ns With 20 Meq Kcl) 1,000 mls @ 200 mls/ hr IV ASDIRECTED [facility] Last Admin: 09/04/17 02:40 Dose: 200 mls/hr Potassium Chloride/Sodium Chloride (Normal Saline With 20 Meq Kcl) 1,000 mls @ 75 mls/hr IV ASDIRECTED [facility] Last Admin: 09/05/17 00:30 Dose: 75 mls/hr Potassium Chloride/Sodium Chloride (1/2 Ns With 20 Meq Kcl) Confirm Administered Dose 1,000 mls @ as directed .ROUTE .STK-MED ONE Stop: 09/04/17 09:11 Last Admin: 09/04/17 10:31 Dose: Not Given Lisinopril (Prinivil) 40 mg PO DAILY [facility] Last Admin: 09/04/17 10:15 Dose: 40 mg Metformin HCl (Glucophage) Confirm Administered Dose 1,000 mg .ROUTE .STK-MED ONE Stop: 09/04/17 09:10 Last Admin: 09/04/17 10:07 Dose: Not Given Metoprolol Tartrate (Lopressor) Confirm Administered Dose 50 mg .ROUTE .STK-MED ONE Stop: 09/04/17 09:09 Last Admin: 09/04/17 10:06 Dose: Not Given Non-Formulary Medication (Hydrocodone/Acetaminophen [Hydrocodon-Acetaminophen 5- 300]) 1 each PO Q6H PRN PRN Reason: Headache Potassium Chloride (Klor-Con M20) 40 meq PO ONETIME ONE Stop: 09/03/17 13:05 Last Admin: 09/03/17 13:15 Dose: 40 meq Potassium Chloride (Klor-Con M20) 20 meq PO DAILY [facility] Last Admin: 09/04/17 10:15 Dose: 20 meq Potassium Chloride (Klor-Con M20) Confirm Administered Dose 20 meq .ROUTE .STK- MED ONE Stop: 09/04/17 09:10 Last Admin: 09/04/17 10:06 Dose: Not Given Potassium Chloride/Dextrose/Sod Cl (D5 Ns With 20 Meq Kcl) 1,000 ml .ROUTE .STK -MED ONE Stop: 09/03/17 11:51 Tramadol HCl (Ultram) Confirm Administered Dose 50 mg .ROUTE .STK-MED ONE Stop: 09/03/17 23:03 Last Admin: 09/04/17 01:08 Dose: Not Given - Exam Quality Assessment: No: Supplemental Oxygen, Urine Catheter General: Alert, Oriented, Cooperative, No Acute Distress HEENT: Mucous Membr. Moist/[place] Neck: Supple, Trachea Midline Lungs: Clear to Auscultation, Normal Respiratory Effort Cardiovascular: Regular Rate, Regular Rhythm GI/Abdominal Exam: Normal Bowel Sounds, Soft, Non-Tender, No Distention (Female) Exam: Deferred Back Exam: Normal Inspection Extremities: No Pedal Edema, Normal Capillary Refill, Leg Pain, Redness ( Redness to top of left foot, decreased from yesterday). No: Joint Swelling, Increased Warmth Peripheral Pulses: 2+: Dorsalis Pedis (L), Dorsalis Pedis (R) Skin: Warm, Dry Wound/Incisions: Other (cut to toe is clean and dry, no drainage, no redness, no bruising.) Neurological: No New Focal Deficit, Normal Speech Psy/Mental Status: Alert, Normal Affect, Normal Mood - Problem List & Annotations (1) Hypokalemia SNOMED Code(s): 65211932 Code(s): E87.6 - HYPOKALEMIA Status: Acute Current Visit: Yes (2) Hypoglycemia SNOMED Code(s): 248072134 Code(s): E16.2 - HYPOGLYCEMIA, UNSPECIFIED Status: Acute Current Visit: Yes (3) Pain in left foot SNOMED Code(s): 90228292 Code(s): M79.672 - PAIN IN LEFT FOOT Status: Acute Current Visit: Yes (4) Hypothyroid SNOMED Code(s): 48687258 Code(s): E03.9 - HYPOTHYROIDISM, UNSPECIFIED Status: Acute Current Visit : Yes (5) Sepsis SNOMED Code(s): 86913581 Code(s): A41.9 - SEPSIS, UNSPECIFIED ORGANISM Status: Acute Current Visit : Yes - Problem List Review Problem List Initiated/Reviewed/Updated: Yes - My Orders Last 24 Hours: My Active Orders 09/04/17 17:00 metFORMIN [Glucophage] 1,000 mg PO BIDMEALS 09/05/17 08:00 Omeprazole 20 mg PO DAILY atorvaSTATin [Lipitor] 40 mg PO DAILY 09/05/17 09:23 ORGANISM ID, BACTERIA Routine 09/05/17 19:00 ELECTROLYTES,LYTES [CHEM] Routine 09/06/17 07:30 BASIC METABOLIC PANEL,BMP [CHEM] Routine CBC WITH AUTO DIFF [HEME] Routine - Plan Plan:: 09-05-17 Pt is feeling better and looking better. She is sitting in the bed and having breakfast. Reviewed lab results and pt status with Dr Marilu MD. Hyperkalemia noted today. Hold all potassium and D/C IV fluids, continue saline lock. Pt taking food and fluids well. No temperature noted and BP is normal. Will continue on home medications, but hold the Glipizide, vitamen, hold Atorvastatin, and hold the Plavix. Continue with Rocephin 1 gm IV daily, pending results of cultures. Urine remains straw colored and not dark with goo output. Continue to monitor pt closely for any signs of increase in infection. With this continued leg pain, will send pt for U/S. No service available with openings, locally, so will send pt by [facility] to [place]. Creatinine and BUN elevated, will obtain U/S of kidneys today. Repeat electrolytes this pm. CBC w diff and BMP in am. Waiting for finals of cultures. Discussion with grass farm laborer and infection control nurse, recommend continue with Rocephin and this has good coverage for the preliminary cultures. Hold on NSAIDS. Continue with pain medication as ordered.
[2017-09-05] MEDS: cefTRIAXone 1 GM in Sodium Chloride 0.9% 50 ML IV SCH (18:20)
[2017-09-05] MEDS: traMADol 50 MG Tab PO PRN (19:30)
[2017-09-06] MEDS: amLODIPine 10 MG Tab PO SCH (07:49)
[2017-09-06] MEDS: Metoprolol Tartrate 50 MG Tab PO SCH ×2 (07:49→19:51)
[2017-09-06] MEDS: Pantoprazole 40 MG Vial IVPUSH SCH (07:49)
--- NOTE | 2017-09-06 08:28 | PCM.PN ---
- General Info Date of Service: 09/06/17 Admission Dx/Problem (Free Text): sepsis Low platelets Left leg pain Subjective Update: Pt states she is feeling better and slept well. Continues with pain to left lower leg and foot when touched. States she just doesn't have an appetite. States this has been going on for awhile. Functional Status: Reports: Tolerating Diet - Review of Systems General: Denies: Weakness, Fatigue HEENT: Reports: No Symptoms, Glasses Pulmonary: Reports: No Symptoms Cardiovascular: Reports: No Symptoms Gastrointestinal: Reports: Constipation, Decreased Appetite Genitourinary: Reports: No Symptoms Musculoskeletal: Reports: Leg Pain, Foot Pain Neurological: Denies: Confusion, Dizziness, Headache Psychiatric: Reports: No Symptoms. Denies: Depression - Patient Data Vitals - Most Recent: Last Vital Signs Temp 98.3 F 09/06/17 00:00 Pulse 92 09/06/17 07:49 Resp 12 09/06/17 00:00 BP 152/69 H 09/06/17 07:49 Pulse Ox 89 L 09/06/17 00:00 Weight - Most Recent: 116 lb I&O - Last 24 Hours: Intake & Output 09/05/17 09/06/17 09/06/17 22:59 06:59 14:59 Intake Total 830 320 Output Total 500 500 Balance 330 -180 Lab Results Last 24 Hours: Laboratory Results - last 24 hr 09/05/17 09/05/17 09/06/17 Range/Units 16:40 17:50 06:52 WBC (4.0-11.0) K/uL RBC (3.80-5.80) M/uL Hgb (11.5-16.5) g/dL Hct (37.0-47.0) % MCV (76-96) fL MCH (27.0-32.0) pg MCHC (31.0-35.0) g/dL RDW (11.0-16.0) % Plt Count (150-500) K/uL MPV (6.0-10.0) fL Neut % (Auto) (45.0-70.0) % Lymph % (Auto) (20.0-40.0) % Shannon % (Auto) (3.0-10.0) % Eos % (Auto) (1.0-5.0) % Baso % (Auto) (0.0-0.5) % Neut # (Auto) (2.00-7.50) K/uL Lymph # (Auto) (1.50-4.00) K/uL Shannon # (Auto) (0.20-0.80) K/uL Eos # (Auto) (0.04-0.40) K/uL Baso # (Auto) (0.02-0.10) K/uL Sodium 132 L (136-145) mmol/L Potassium 4.6 (3.5-5.1) mmol/L Chloride 100 (98-107) mmol/L Carbon Dioxide 20.5 L (21.0-32.0) mmol/L Anion Gap 16.1 H (5.0-15.0) mmol/L BUN (8-26) mg/dL Creatinine (0.55-1.02) mg/dL Est Cr Clr Drug Dosing mL/min Estimated GFR (MDRD) (>60) MLS/MIN BUN/Creatinine Ratio (6-25) Glucose (74-100) mg/dL POC Glucose 78 112 H (74-110) mg/dL Calcium (8.5-10.1) mg/dL 09/06/17 09/06/17 Range/Units 07:10 07:10 WBC 15.3 H D (4.0-11.0) K/uL RBC 2.83 L (3.80-5.80) M/uL Hgb 9.4 L (11.5-16.5) g/dL Hct 26.7 L (37.0-47.0) % MCV 94 (76-96) fL MCH 33.2 H (27.0-32.0) pg MCHC 35.2 H (31.0-35.0) g/dL RDW 11.8 (11.0-16.0) % Plt Count 115 L (150-500) K/uL MPV 10.1 H (6.0-10.0) fL Neut % (Auto) 86.5 H (45.0-70.0) % Lymph % (Auto) 6.1 L (20.0-40.0) % Shannon % (Auto) 6.5 (3.0-10.0) % Eos % (Auto) 0.8 L (1.0-5.0) % Baso % (Auto) 0.1 (0.0-0.5) % Neut # (Auto) 13.24 H (2.00-7.50) K/uL Lymph # (Auto) 0.94 L (1.50-4.00) K/uL Shannon # (Auto) 1.00 H (0.20-0.80) K/uL Eos # (Auto) 0.13 (0.04-0.40) K/uL Baso # (Auto) 0.01 L (0.02-0.10) K/uL Sodium 133 L (136-145) mmol/L Potassium 4.9 (3.5-5.1) mmol/L Chloride 100 (98-107) mmol/L Carbon Dioxide 20.5 L (21.0-32.0) mmol/L Anion Gap 17.4 H (5.0-15.0) mmol/L BUN 41 H (8-26) mg/dL Creatinine 2.30 H (0.55-1.02) mg/dL Est Cr Clr Drug Dosing 13.77 mL/min Estimated GFR (MDRD) 20 L (>60) MLS/MIN BUN/Creatinine Ratio 17.8 (6-25) Glucose 108 H D (74-100) mg/dL POC Glucose (74-110) mg/dL Calcium 8.7 (8.5-10.1) mg/dL [place] Results Last 24 Hours: Microbiology 09/03/17 16:27 Aerobic Blood Culture - Preliminary Blood Anaerobic Blood Culture - Preliminary NO GROWTH AFTER 2 DAYS 09/03/17 15:34 Aerobic Blood Culture - Preliminary Blood Anaerobic Blood Culture - Preliminary NO GROWTH AFTER 2 DAYS 09/04/17 09:17 Gram Stain - Preliminary Foot, Left Wound Culture - Preliminary NO GROWTH AFTER 1 DAY 09/04/17 10:26 MRSA Surveillance Culture - Final Nares, Unspecified NO MRSA ISOLATED 09/04/17 08:00 Gram Stain - Final Blood Med Orders - Current: Current Medications Hydrocodone Bitart/Acetaminophen ([place]ber 325-5 Mg) 1 tab PO Q6H PRN PRN Reason: Pain Last Admin: 09/05/17 11:29 Dose: 1 tab Amlodipine Besylate (Norvasc) 10 mg PO DAILY MALU Last Admin: 09/06/17 07:49 Dose: 10 mg Atorvastatin Calcium (Lipitor) 40 mg PO DAILY [facility] Clopidogrel Bisulfate (Plavix) 75 mg PO DAILY [facility] Last Admin: 09/04/17 10:38 Dose: Not Given Docusate Calcium (Surfak) 240 mg PO DAILY PRN PRN Reason: Constipation Ceftriaxone Sodium 1 gm/ (Sodium Chloride) 50 mls @ 100 mls/hr IV Q24H [facility] Last Admin: 09/05/17 18:20 Dose: 100 mls/hr Metformin HCl (Glucophage) 1,000 mg PO BIDMEALS [facility] Last Admin: 09/05/17 18:19 Dose: Not Given Metoprolol Tartrate (Lopressor) 50 mg PO BID [facility] Last Admin: 09/06/17 07:49 Dose: 50 mg Non-Formulary Medication (Latanoprost [Xalatan 0.005% Ophth Soln]) 1 drop EYEBOTH DAILY [facility] Last Admin: 09/05/17 16:43 Dose: Not Given Omeprazole (Omeprazole) 20 mg PO DAILY [facility] Pantoprazole Sodium (Protonix) 40 mg PO ACBREAKFAST [facility] Tramadol HCl (Ultram) 50 mg PO Q6H PRN PRN Reason: Pain Last Admin: 09/05/17 19:30 Dose: 50 mg Discontinued Medications Dextrose/Water (Dextrose 50% In Water) 50 ml IVPUSH ONETIME ONE Stop: 09/03/17 14:44 Last Admin: 09/03/17 14:52 Dose: 50 ml Enoxaparin Sodium (Lovenox) 45 mg SUBCUT Q12H [facility] Last Admin: 09/04/17 06:20 Dose: 40 mg Enoxaparin Sodium (Lovenox) Confirm Administered Dose 40 mg .ROUTE .STK-MED ONE Stop: 09/05/17 11:07 Enoxaparin Sodium (Lovenox) Confirm Administered Dose 60 mg .ROUTE .STK-MED ONE Stop: 09/05/17 11:07 Potassium Chloride/Dextrose/Sod Cl (D5 Ns With 20 Meq Kcl) Confirm Administered Dose 1,000 mls @ as directed .ROUTE .STK-MED ONE Stop: 09/03/17 14:24 Last Admin: 09/03/17 17:38 Dose: Not Given Potassium Chloride/Dextrose/Sod Cl (D5 Ns With 20 Meq Kcl) 1,000 mls @ 200 mls/ hr IV ASDIRECTED [facility] Last Admin: 09/04/17 02:40 Dose: 200 mls/hr Potassium Chloride/Sodium Chloride (Normal Saline With 20 Meq Kcl) 1,000 mls @ 75 mls/hr IV ASDIRECTED [facility] Last Admin: 09/05/17 00:30 Dose: 75 mls/hr Potassium Chloride/Sodium Chloride (1/2 Ns With 20 Meq Kcl) Confirm Administered Dose 1,000 mls @ as directed .ROUTE .STK-MED ONE Stop: 09/04/17 09:11 Last Admin: 09/04/17 10:31 Dose: Not Given Lisinopril (Prinivil) 40 mg PO DAILY [facility] Last Admin: 09/04/17 10:15 Dose: 40 mg Metformin HCl (Glucophage) Confirm Administered Dose 1,000 mg .ROUTE .STK-MED ONE Stop: 09/04/17 09:10 Last Admin: 09/04/17 10:07 Dose: Not Given Metoprolol Tartrate (Lopressor) Confirm Administered Dose 50 mg .ROUTE .STK-MED ONE Stop: 09/04/17 09:09 Last Admin: 09/04/17 10:06 Dose: Not Given Non-Formulary Medication (Hydrocodone/Acetaminophen [Hydrocodon-Acetaminophen 5- 300]) 1 each PO Q6H PRN PRN Reason: Headache Pantoprazole Sodium (Protonix Iv) 40 mg IVPUSH DAILY [facility] Last Admin: 09/06/17 07:49 Dose: 40 mg Potassium Chloride (Klor-Con M20) 40 meq PO ONETIME ONE Stop: 09/03/17 13:05 Last Admin: 09/03/17 13:15 Dose: 40 meq Potassium Chloride (Klor-Con M20) 20 meq PO DAILY [facility] Last Admin: 09/04/17 10:15 Dose: 20 meq Potassium Chloride (Klor-Con M20) Confirm Administered Dose 20 meq .ROUTE .STK- MED ONE Stop: 09/04/17 09:10 Last Admin: 09/04/17 10:06 Dose: Not Given Potassium Chloride/Dextrose/Sod Cl (D5 Ns With 20 Meq Kcl) 1,000 ml .ROUTE .STK -MED ONE Stop: 09/03/17 11:51 Tramadol HCl (Ultram) Confirm Administered Dose 50 mg .ROUTE .STK-MED ONE Stop: 09/03/17 23:03 Last Admin: 09/04/17 01:08 Dose: Not Given - Exam General: Alert, Oriented, Cooperative, No Acute Distress HEENT: Mucous Membr. Moist/[place] Neck: Supple, Trachea Midline Lungs: Clear to Auscultation, Normal Respiratory Effort Cardiovascular: Regular Rate, Regular Rhythm GI/Abdominal Exam: Normal Bowel Sounds, Soft, Non-Tender. No: Guarding, Rigid, Rebound (Female) Exam: Deferred Extremities: Normal Capillary Refill, Redness (Redness continues to rop of left foot.), Other (Mild edema to left leg, No lump/mass palpable to left popliteal area) Skin: Warm, Dry, Other (Cut to toe is dry, clean and intact, no drainage, no redness to area.) Neurological: No New Focal Deficit Psy/Mental Status: Alert, Normal Affect, Normal Mood - Problem List & Annotations (1) Hypokalemia SNOMED Code(s): 12442025 Code(s): E87.6 - HYPOKALEMIA Status: Resolved Current Visit: Yes (2) Hypoglycemia SNOMED Code(s): 410893001 Code(s): E16.2 - HYPOGLYCEMIA, UNSPECIFIED Status: Resolved Current Visit : Yes (3) Pain in left foot SNOMED Code(s): 75824912 Code(s): M79.672 - PAIN IN LEFT FOOT Status: Acute Current Visit: Yes (4) Hypothyroid SNOMED Code(s): 90508410 Code(s): E03.9 - HYPOTHYROIDISM, UNSPECIFIED Status: Acute Current Visit : Yes (5) Sepsis SNOMED Code(s): 18566486 Code(s): A41.9 - SEPSIS, UNSPECIFIED ORGANISM Status: Acute Current Visit : Yes - Problem List Review Problem List Initiated/Reviewed/Updated: Yes - My Orders Last 24 Hours: My Active Orders 09/05/17 08:00 Omeprazole 20 mg PO DAILY atorvaSTATin [Lipitor] 40 mg PO DAILY 09/05/17 09:23 ORGANISM ID, BACTERIA Routine 09/06/17 08:13 Abdomen Pelvis wo Cont [CT] Routine 09/06/17 08:18 Docusate Calcium [Surfak] 240 mg PO DAILY PRN 09/07/17 07:00 Pantoprazole [ProTONIX] 40 mg PO ACBREAKFAST - Plan Plan:: 09-05-17 Pt is feeling better and looking better. She is sitting in the bed and having breakfast. Reviewed lab results and pt status with Dr Marilu MD. Hyperkalemia noted today. Hold all potassium and D/C IV fluids, continue saline lock. Pt taking food and fluids well. No temperature noted and BP is normal. Will continue on home medications, but hold the Glipizide, vitamen, hold Atorvastatin, and hold the Plavix. Continue with Rocephin 1 gm IV daily, pending results of cultures. Urine remains straw colored and not dark with goo output. Continue to monitor pt closely for any signs of increase in infection. With this continued leg pain, will send pt for U/S. No service available with openings, locally, so will send pt by [facility] to [place]. Creatinine and BUN elevated, will obtain U/S of kidneys today. Repeat electrolytes this pm. CBC w diff and BMP in am. Waiting for finals of cultures. Discussion with microbiology lab manager and infection control nurse, recommend continue with Rocephin and this has good coverage for the preliminary cultures. Hold on NSAIDS. Continue with pain medication as ordered. 09-06-17: Pt slept well and feeling some better. Pain persists to left leg and foot. Lab results and pt status reviewed with Dr Michel. Creatinine and BUN elevated. Will check CT of abdomen and pelvis today. Review of US of leg shows possible rocha's cyst. No palpable lump noted, no bruising and no redness to area. Leukocytosis noted. Will continue with Rocephin IV today. Will check CBC and BMP in am. Pt taking food and fluids well. Will continue with saline lock. Will continue to hold Metformin to see if this helps improve the kidney function in am. Hold NSAIDS and will hold Tramadol. May use Vicoden for pain to left leg. Minimal swelling noted to lower left leg. Recommend pt to be up in chair tid today and start incentive spirometer to keep lungs clear. Will change to oral protonix today and start stool softener. Continue to monitor I/O and any increase in signs of infection. Intermittent mild temperature elevation, that returns to normal with temperature change in room.
[2017-09-06] MEDS ORDERED: Docusate Sodium 250 MG Cap ONE (10:07)
[2017-09-06] MEDS: Acetaminophen/HYDROcodone 325-5 MG Tab PO PRN ×2 (10:14→19:52)
[2017-09-06] MEDS: metFORMIN 1,000 MG Tab PO SCH ×2 (10:17→18:33)
[2017-09-06] MEDS: Non-Formulary Medication 1 Each (Latanoprost [Xalatan 0.005% Ophth Soln] 1 DROP) EYEBOTH SCH (10:18)
[2017-09-06] MEDS ORDERED: Docusate Sodium 250 MG Cap PO PRN (11:06)
[2017-09-06] MEDS: cefTRIAXone 1 GM in Sodium Chloride 0.9% 50 ML IV SCH (17:19)
[2017-09-07] MEDS: Acetaminophen/HYDROcodone 325-5 MG Tab PO PRN (06:23)
[2017-09-07] MEDS ORDERED: Pantoprazole 40 MG Tab.CR PO SCH (07:00)
--- NOTE | 2017-09-07 07:28 | CT ---
DATE OF SERVICE: 09/06/17 CLINICAL DATA: U/S results show perinephric fluid adjacent UNENHANCED ABDOMEN AND PELVIC CT: Multislice acquisition through the abdomen and pelvis without IV or oral contrast was performed. No priors. Motion artifact degrades image quality. The heart size is within normal limits. There is a small pericardial effusion. There are coronary artery calcifications. There are small bilateral pleural effusions. There are emphysematous changes in both lower lungs. There are mild atelectatic changes in both lung bases. The unenhanced liver appears normal. The gallbladder is mildly distended but otherwise is unremarkable. The spleen appears normal. The pancreas appears normal. The right and left adrenals appear normal. No nephrocalcinosis or nephrolithiasis. There is mild hydronephrosis and hydroureter on the right. No evidence of a ureteral calculi. This could be secondary to chronic reflux on the right. A recently passed ureteral calculi with residual hydronephrosis and hydroureter should also be considered. The bladder is fluid-filled and appears normal. No evidence of bladder calculi. The appendix is not clearly seen. No evidence of appendicitis. There are multiple loops of small bowel within the lower abdomen and pelvis with apparent mural thickening. This is probably related to non-distension. Enteritis should at least be considered. There is a small amount of free fluid noted within the pelvis. No free air. No dilated loops of bowel. No adenopathy. No aortic aneurysm. There is a small periumbilical ventral hernia containing fat. No other significant findings. [id number] [facility]
[2017-09-07] MEDS: metFORMIN 1,000 MG Tab PO SCH (08:12)
[2017-09-07] MEDS: Metoprolol Tartrate 50 MG Tab PO SCH (08:13)
[2017-09-07] MEDS: amLODIPine 10 MG Tab PO SCH (08:13)
[2017-09-07 08:14] VITALS: BP 131/57
--- NOTE | 2017-09-07 11:04 | PCM.DCSUM1 ---
Discharge Summary - Hospital Course HPI Initial Comments: Pt admit with sepsis, with positive blood culture of haemophilus influenza. This is sensitive to the Rocephin and she has had 4 doses. DVT to left leg has been ruled out. U/S to kidney and CT of pelvis and abdomen completed because of her elevated creatinine level. Mild hypdronephrosis to right kidney noted. Creatinine/BUN has stabilized. WBC is improving. Plt have improved. Pt is alert and talkative and improvement noted. Will plan on discharge from acute care today and transfer care to [facility] to monitor closely for sepsis. Will change to oral Ceftin. Continue to hold NSAID and Metformin with her creatinine level slowly improving. Continue with pain medication as needed for left leg pain. Will put in order for PT/OT referral to assist with strengthening. Continue with consistent carbohydrate diet. Diagnosis: Stroke: No - Discharge Data Discharge Date: 09/07/17 Discharge Disposition: DC/Tfer W/I Hosp To [place] [id number] Condition: Good - Discharge Diagnosis/Problem(s) (1) Hypokalemia SNOMED Code(s): 65849104 ICD Code: E87.6 - HYPOKALEMIA Status: Resolved Current Visit: Yes (2) Hypoglycemia SNOMED Code(s): 946104523 ICD Code: E16.2 - HYPOGLYCEMIA, UNSPECIFIED Status: Resolved Current Visit: Yes (3) Pain in left foot SNOMED Code(s): 72298504 ICD Code: M79.672 - PAIN IN LEFT FOOT Status: Acute Current Visit: Yes (4) Hypothyroid SNOMED Code(s): 76556299 ICD Code: E03.9 - HYPOTHYROIDISM, UNSPECIFIED Status: Acute Current Visit : Yes (5) Sepsis SNOMED Code(s): 73108044 ICD Code: A41.9 - SEPSIS, UNSPECIFIED ORGANISM Status: Acute Current Visit: Yes (6) Diabetes mellitus type 2 in nonobese SNOMED Code(s): 900588074 ICD Code: E11.9 - TYPE 2 DIABETES MELLITUS WITHOUT COMPLICATIONS Status: Acute Current Visit: Yes - Patient Instructions Diet: Diabetic Diet (consistent carbohydrate diet) Activity: Cough & Deep Breathe, Full Weight Bearing (Increase activity to up in chair more today.) Showering/Bathing: May Shower (with assist of staff) Wound/Incision Care: Change Dressing Daily Notify Provider of: Fever, Nausea and/or Vomiting - Discharge Plan *PRESCRIPTION DRUG MONITORING PROGRAM REVIEWED*: Not Applicable *COPY OF PRESCRIPTION DRUG MONITORING REPORT IN PATIENT HASEEB: Not Applicable Home Medications: Home Meds Aspirin [Mona Chewable] 81 mg PO DAILY 09/04/17 [History] Clopidogrel [Plavix] 75 mg PO DAILY 09/04/17 [History] Hydrochlorothiazide 25 mg PO DAILY 09/04/17 [History] Latanoprost [Xalatan] 1 drop OP DAILY 09/04/17 [History] Lisinopril [Prinivil] 2 tab PO DAILY 09/04/17 [History] Metoprolol Tartrate [Lopressor] 50 mg PO BID 09/04/17 [History] Multivitamin W/Iron, Minerals [Multivitamins with Iron] 1 each PO DAILY [History] Omeprazole 20 mg PO DAILY 09/04/17 [History] amLODIPine Besylate [Amlodipine Besylate] 10 mg PO DAILY 09/04/17 [History] atorvaSTATin [Lipitor] 40 mg PO BEDTIME 09/04/17 [History] glipiZIDE [Glipizide ER] 10 mg PO DAILY 09/04/17 [History] metFORMIN HCl [Metformin HCl] 1,000 mg PO BIDMEALS 09/04/17 [History] Forms: ED Department Discharge Referrals: PCP,None [Primary Care Provider] - - Discharge Summary/Plan Comment Discharge Summary/Plan Comment: Transfer to Swing Bed for skilled observation and assessment of sepsis. Change to Ceftin PO bid Monitor CBC and BMP. Monitor I/O and daily weight. Diabetes Type 2: Monitor blood sugars daily. Hold glipizide and metformin. consistent carbohydrate diet. Weakness: PT/OT to evaluate and treat for exercise and strengthening. - General Info Date of Service: 09/07/17 Admission Dx/Problem (Free Text: sepsis Left leg pain elevated creatinine Subjective Update: Pt states she slept well, states pain to left leg in improved. States she has been going to the bathroom with assist and going in more amounts. States no abdominal pain. Staff report temperature of 99 F today. 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 Denies: Shortness of Breath, Cough Cardiovascular: Reports: No Symptoms. Denies: Chest Pain, Palpitations Gastrointestinal: Reports: Decreased Appetite. Denies: Abdominal Pain, Difficulty Swallowing Genitourinary: Reports: No Symptoms Musculoskeletal: Reports: Leg Pain Skin: Reports: No Symptoms Neurological: Reports: No Symptoms Psychiatric: Reports: No Symptoms - Patient Data Vitals - Most Recent: Last Vital Signs Temp 99.1 F 09/07/17 08:00 Pulse 77 09/07/17 08:13 Resp 16 09/07/17 08:00 BP 131/57 L 09/07/17 08:13 Pulse Ox 92 L 09/07/17 08:00 Weight - Most Recent: 116 lb I&O - Last 24 hours: Intake & Output 09/06/17 09/07/17 09/07/17 22:59 06:59 14:59 Intake Total 530 Output Total 1200 1000 Balance -670 -1000 Lab Results - Last 24 hrs: Laboratory Results - last 24 hr 09/06/17 09/06/17 09/07/17 Range/Units 10:36 16:04 07:10 WBC 13.0 H (4.0-11.0) K/uL RBC 2.71 L (3.80-5.80) M/uL Hgb 8.9 L (11.5-16.5) g/dL Hct 25.3 L (37.0-47.0) % MCV 93 (76-96) fL MCH 32.8 H (27.0-32.0) pg MCHC 35.2 H (31.0-35.0) g/dL RDW 11.9 (11.0-16.0) % Plt Count 138 L (150-500) K/uL MPV 10.2 H (6.0-10.0) fL Neut % (Auto) 83.6 H (45.0-70.0) % Lymph % (Auto) 7.2 L (20.0-40.0) % Parker % (Auto) 7.3 (3.0-10.0) % Eos % (Auto) 1.8 (1.0-5.0) % Baso % (Auto) 0.1 (0.0-0.5) % Neut # (Auto) 10.85 H (2.00-7.50) K/uL Lymph # (Auto) 0.93 L (1.50-4.00) K/uL Parker # (Auto) 0.95 H (0.20-0.80) K/uL Eos # (Auto) 0.23 (0.04-0.40) K/uL Baso # (Auto) 0.01 L (0.02-0.10) K/uL Sodium (136-145) mmol/L Potassium (3.5-5.1) mmol/L Chloride (98-107) mmol/L Carbon Dioxide (21.0-32.0) mmol/L Anion Gap (5.0-15.0) mmol/L BUN (8-26) mg/dL Creatinine (0.55-1.02) mg/dL Est Cr Clr Drug Dosing mL/min Estimated GFR (MDRD) (>60) MLS/MIN BUN/Creatinine Ratio (6-25) Glucose (74-100) mg/dL POC Glucose 194 H 208 H (74-110) mg/dL Calcium (8.5-10.1) mg/dL 09/07/17 Range/Units 07:30 WBC (4.0-11.0) K/uL RBC (3.80-5.80) M/uL Hgb (11.5-16.5) g/dL Hct (37.0-47.0) % MCV (76-96) fL MCH (27.0-32.0) pg MCHC (31.0-35.0) g/dL RDW (11.0-16.0) % Plt Count (150-500) K/uL MPV (6.0-10.0) fL Neut % (Auto) (45.0-70.0) % Lymph % (Auto) (20.0-40.0) % Parker % (Auto) (3.0-10.0) % Eos % (Auto) (1.0-5.0) % Baso % (Auto) (0.0-0.5) % Neut # (Auto) (2.00-7.50) K/uL Lymph # (Auto) (1.50-4.00) K/uL Parker # (Auto) (0.20-0.80) K/uL Eos # (Auto) (0.04-0.40) K/uL Baso # (Auto) (0.02-0.10) K/uL Sodium 131 L (136-145) mmol/L Potassium 3.6 D (3.5-5.1) mmol/L Chloride 98 (98-107) mmol/L Carbon Dioxide 21.2 (21.0-32.0) mmol/L Anion Gap 15.4 H (5.0-15.0) mmol/L BUN 42 H (8-26) mg/dL Creatinine 2.26 H (0.55-1.02) mg/dL Est Cr Clr Drug Dosing 14.02 mL/min Estimated GFR (MDRD) 20 L (>60) MLS/MIN BUN/Creatinine Ratio 18.6 (6-25) Glucose 165 H D (74-100) mg/dL POC Glucose (74-110) mg/dL Calcium 8.4 L (8.5-10.1) mg/dL OLGA LIDIA Results - Last 24 hrs: Microbiology 09/04/17 09:17 Gram Stain - Final Foot, Left Wound Culture - Final NO GROWTH AFTER 3 DAYS 09/03/17 17:00 Urine Culture - Final Urine, Catheterized Gram Positive Cocci 09/03/17 16:27 Aerobic Blood Culture - Final Blood Haemophilus Species Anaerobic Blood Culture - Preliminary NO GROWTH AFTER 3 DAYS 09/03/17 15:34 Aerobic Blood Culture - Final Blood Haemophilus Species Anaerobic Blood Culture - Preliminary NO GROWTH AFTER 3 DAYS Med Orders - Current: Current Medications Hydrocodone Bitart/Acetaminophen ([place] 325-5 Mg) 1 tab PO Q6H PRN PRN Reason: Pain Last Admin: 09/07/17 06:23 Dose: 1 tab Amlodipine Besylate (Norvasc) 10 mg PO DAILY [facility] Last Admin: 09/07/17 08:13 Dose: 10 mg Atorvastatin Calcium (Lipitor) 40 mg PO DAILY [facility] Clopidogrel Bisulfate (Plavix) 75 mg PO DAILY [facility] Last Admin: 09/04/17 10:38 Dose: Not Given Docusate Sodium (Dok) 250 mg PO DAILY PRN PRN Reason: CONSTIPATION Ceftriaxone Sodium 1 gm/ (Sodium Chloride) 50 mls @ 100 mls/hr IV Q24H [facility] Last Admin: 09/06/17 17:19 Dose: 100 mls/hr Metformin HCl (Glucophage) 1,000 mg PO BIDMEALS [facility] Last Admin: 09/07/17 08:12 Dose: 1,000 mg Metoprolol Tartrate (Lopressor) 50 mg PO BID [facility] Last Admin: 09/07/17 08:13 Dose: 50 mg Non-Formulary Medication (Latanoprost [Xalatan 0.005% [facility] Soln]) 1 drop EYEBOTH DAILY [facility] Last Admin: 09/06/17 10:18 Dose: 1 drop Omeprazole (Omeprazole) 20 mg PO DAILY [facility] Pantoprazole Sodium (Protonix) 40 mg PO ACBREAKFAST [facility] Last Admin: 09/07/17 08:12 Dose: 40 mg Discontinued Medications Dextrose/Water (Dextrose 50% In Water) 50 ml IVPUSH ONETIME ONE Stop: 09/03/17 14:44 Last Admin: 09/03/17 14:52 Dose: 50 ml Docusate Sodium (Dok) Confirm Administered Dose 250 mg .ROUTE .STK-MED ONE Stop: 09/06/17 10:08 Last Admin: 09/06/17 10:14 Dose: 250 mg Enoxaparin Sodium (Lovenox) 45 mg SUBCUT Q12H [facility] Last Admin: 09/04/17 06:20 Dose: 40 mg Enoxaparin Sodium (Lovenox) Confirm Administered Dose 40 mg .ROUTE .STK-MED ONE Stop: 09/05/17 11:07 Enoxaparin Sodium (Lovenox) Confirm Administered Dose 60 mg .ROUTE .STK-MED ONE Stop: 09/05/17 11:07 Potassium Chloride/Dextrose/Sod Cl (D5 Ns With 20 Meq Kcl) Confirm Administered Dose 1,000 mls @ as directed .ROUTE .STK-MED ONE Stop: 09/03/17 14:24 Last Admin: 09/03/17 17:38 Dose: Not Given Potassium Chloride/Dextrose/Sod Cl (D5 Ns With 20 Meq Kcl) 1,000 mls @ 200 mls/ hr IV ASDIRECTED [facility] Last Admin: 09/04/17 02:40 Dose: 200 mls/hr Potassium Chloride/Sodium Chloride (Normal Saline With 20 Meq Kcl) 1,000 mls @ 75 mls/hr IV ASDIRECTED [facility] Last Admin: 09/05/17 00:30 Dose: 75 mls/hr Potassium Chloride/Sodium Chloride (1/2 Ns With 20 Meq Kcl) Confirm Administered Dose 1,000 mls @ as directed .ROUTE .STK-MED ONE Stop: 09/04/17 09:11 Last Admin: 09/04/17 10:31 Dose: Not Given Lisinopril (Prinivil) 40 mg PO DAILY [facility] Last Admin: 09/04/17 10:15 Dose: 40 mg Metformin HCl (Glucophage) Confirm Administered Dose 1,000 mg .ROUTE .STK-MED ONE Stop: 09/04/17 09:10 Last Admin: 09/04/17 10:07 Dose: Not Given Metoprolol Tartrate (Lopressor) Confirm Administered Dose 50 mg .ROUTE .STK-MED ONE Stop: 09/04/17 09:09 Last Admin: 09/04/17 10:06 Dose: Not Given Non-Formulary Medication (Hydrocodone/Acetaminophen [Hydrocodon-Acetaminophen 5- 300]) 1 each PO Q6H PRN PRN Reason: Headache Pantoprazole Sodium (Protonix Iv) 40 mg IVPUSH DAILY [facility] Last Admin: 09/06/17 07:49 Dose: 40 mg Potassium Chloride (Klor-Con M20) 40 meq PO ONETIME ONE Stop: 09/03/17 13:05 Last Admin: 09/03/17 13:15 Dose: 40 meq Potassium Chloride (Klor-Con M20) 20 meq PO DAILY [facility] Last Admin: 09/04/17 10:15 Dose: 20 meq Potassium Chloride (Klor-Con M20) Confirm Administered Dose 20 meq .ROUTE .STK- MED ONE Stop: 09/04/17 09:10 Last Admin: 09/04/17 10:06 Dose: Not Given Potassium Chloride/Dextrose/Sod Cl (D5 Ns With 20 Meq Kcl) 1,000 ml .ROUTE .STK -MED ONE Stop: 09/03/17 11:51 Tramadol HCl (Ultram) Confirm Administered Dose 50 mg .ROUTE .STK-MED ONE Stop: 09/03/17 23:03 Last Admin: 09/04/17 01:08 Dose: Not Given Tramadol HCl (Ultram) 50 mg PO Q6H PRN PRN Reason: Pain Last Admin: 09/05/17 19:30 Dose: 50 mg - Exam Quality Assessment: Reports: Supplemental Oxygen (as needed to keep SpO2> 92%) General: Reports: Alert, Oriented, Cooperative, No Acute Distress HEENT: Reports: Mucous Membr. Moist/[place] Neck: Reports: Supple, Trachea Midline Lungs: Reports: Clear to Auscultation, Normal Respiratory Effort Cardiovascular: Reports: Regular Rate, Regular Rhythm GI/Abdominal Exam: Normal Bowel Sounds, Soft, Non-Tender. No: No Distention, Guarding, Rigid Back Exam: Reports: Normal Inspection Extremities: No Pedal Edema, Normal Capillary Refill, Leg Pain (Pain improved to left leg), Limited Range of Motion, Redness (Continues to top of foot, dresing and coban is intact to left foot. ) Skin: Reports: Warm, Dry Neurological: Reports: No New Focal Deficit Psy/Mental Status: Reports: Alert, Normal Affect, Normal Mood
== END 2017-09-07 11:23 | disposition swing bed (61) | DRG 872 ==
LOC: LB.ED 11:42 → LB.MS 14:40 → OBSVTOIN 09-04 08:30
PROVIDERS: ADMIT Nurse Practitioner Family; ATTEND Nurse Practitioner Family
PROC: 0H9MXZX Drainage of Right Foot Skin, External Approach, Diagnostic (ICD-10-PCS; principal; 2017-09-04)
DX: A41.9 Sepsis, unspecified organism (principal); A41.59 Other Gram-negative sepsis; N13.30 Unspecified hydronephrosis; S90.821A Blister (nonthermal), right foot, initial encounter; Y93.9 Activity, unspecified; Y92.9 Unspecified place or not applicable; R79.1 Abnormal coagulation profile; E11.65 Type 2 diabetes mellitus with hyperglycemia; R47.89 Other speech disturbances; Z79.84 Long term (current) use of oral hypoglycemic drugs; E87.6 Hypokalemia; M25.572 Pain in left ankle and joints of left foot; E03.9 Hypothyroidism, unspecified; M79.672 Pain in left foot; M79.605 Pain in left leg; H54.61 Unqualified visual loss, right eye, normal vision left eye; Z79.82 Long term (current) use of aspirin; Z91.09 Other allergy status, other than to drugs and biological substances; E87.5 Hyperkalemia
CPT/HCPCS: 36415; 51701; 70450; 71045; 73600-LT; 73630-LT; 74176; 80048; 80051; 80053; 81001; 82962; 83605; 84443; 84484; 85014; 85018; 85025; 85379; 85610; 87040; 87070; 87077; 87086; 87205; 87493; 96360; 96361; 96372; 96374; 96375; 99285-25; A9270-GY; C9113; G0378; J0696; J1650; J3480; J7050

== ENCOUNTER 2017-09-07 10:36 | Inpatient (IN) | payer MEDICARE, BC ==
[2017-09-07] MEDS ORDERED: Tuberculin, PPD 5 Units/0.1 ML 1 ML MDV IDERM ONE (11:23)
[2017-09-07] MEDS ORDERED: Magnesium Hydroxide 400 MG/5 ML Susp 30 ML Cup PO PRN (11:23)
--- NOTE | 2017-09-07 11:43 | PCM.HP ---
H&P History of Present Illness - General Date of Service: 09/07/17 Admit Problem/Dx: Admission Diagnosis/Problem Admission Diagnosis/Problem Sepsis Source of Information: Patient, Old Records, RN History Limitations: Reports: No Limitations - History of Present Illness Initial Comments - Free Text/Narative: 87 yr female transfer to Swing bed program with sepsis and positive blood cultures of Haemophilus influenza. Rocephin 1 gm IV given daily for last 4 days. Improvement noted. If temperature greater than 101, will obtain blood culture X 2. DVT ruled out and CT and U/S of kidney and mild hydronephrosis of right kidney noted. Continue to monitor kidney function. Electrolyte imbalance noted and Diabetes Type 2, controlled with Metformin. Hypoglycemia noted on admit to acute and has blood sugars have improved and adequate intake and output noted. Continue with consistent carbohydrate diet. Pain to left leg and positive probable Barry's cyst. superficial laceration to toe from nail clipping at home before admit. Bullae to left leg and foot and improving. Pt has been using incentive spirometer, will increase activity to up in chair more often today. Referral to PT/OT for strengthening. Left Leg Pain Score (Numeric/FACES): 5 - Related Data Allergies/Adverse Reactions: Allergies Allergy/AdvReac Type Severity Reaction Status Date / Time iron AdvReac Mild Fainting Verified 09/07/17 14:44 Home Medications: Home Meds Aspirin [Mona Chewable] 81 mg PO DAILY 09/04/17 [History] Clopidogrel [Plavix] 75 mg PO DAILY 09/04/17 [History] Latanoprost [Xalatan] 1 drop OP DAILY 09/04/17 [History] Lisinopril [Prinivil] 2 tab PO DAILY 09/04/17 [History] Metoprolol Tartrate [Lopressor] 50 mg PO BID 09/04/17 [History] Multivitamin W/Iron, Minerals [Multivitamins with Iron] 1 each PO DAILY [History] Omeprazole 20 mg PO DAILY 09/04/17 [History] amLODIPine Besylate [Amlodipine Besylate] 10 mg PO DAILY 09/04/17 [History] Levothyroxine 75 tab PO DAILY 09/07/17 [History] Past Medical History Other HEENT History: blind in R eye, diabetes, 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 Other Cardiovascular History: had a heart pause in between some beats, Other Neuro History: bad balance for a long time at least 5 years- from 2015 Endocrine/Metabolic History: Reports: Diabetes, Type II Other Hematologic History: iron low years ago got an infusion- alergic reaction - Past Surgical History Other Musculoskeletal Surgeries/Procedures:: L shoulder surgery- cut off Social & Family History - Caffeine Use Caffeine Use: Reports: Coffee H&P Review of Systems - Review of Systems: Review Of Systems: See Below General: Reports: Weakness, Decreased Appetite HEENT: Reports: No Symptoms, Glasses Pulmonary: Reports: No Symptoms Cardiovascular: Reports: No Symptoms Gastrointestinal: Reports: Decreased Appetite. Denies: Abdominal Pain, Nausea Genitourinary: Reports: No Symptoms Musculoskeletal: Reports: Leg Pain, Foot Pain Psychiatric: Reports: No Symptoms Neurological: Reports: No Symptoms Hematologic/Lymphatic: Reports: Easy Bruising Immunologic: Reports: No Symptoms Exam - Exam Exam: See Below - Exam General: Alert, Oriented, Cooperative. No: Mild Distress HEENT: Mucosa Moist & [place], Glasses Neck: Supple, Trachea Midline Lungs: Clear to Auscultation, Normal Respiratory Effort Cardiovascular: Regular Rate, Regular Rhythm, Other (intermittent nonpitting edema left leg) GI/Abdominal Exam: Normal Bowel Sounds, Soft, Non-Tender, No Distention (Female) Exam: Deferred Rectal (Female) Exam: Deferred Back Exam: Normal Inspection Extremities: Normal Capillary Refill, Leg Pain, Redness (bullae left foot an left lower leg) Peripheral Pulses: 2+: Dorsalis Pedis (L), Dorsalis Pedis (R) Skin: Warm, Dry Neurological: Cranial Nerves Intact, Strength Equal Bilateral, Normal Speech Neuro Extensive - Mental Status: Alert, Oriented x3, Normal Mood/Affect, Normal Cognition Neuro Extensive - Motor, Sensory, Reflexes: No: Motor/Sensory Deficits Psychiatric: Alert, Normal Affect, Normal Mood - Patient Data Result Diagrams: 09/09/17 08:20 09/08/17 10:10 - Problem List (1) Diabetes mellitus type 2 in nonobese SNOMED Code(s): 138387427 ICD Code: E11.9 - TYPE 2 DIABETES MELLITUS WITHOUT COMPLICATIONS Status: Acute Current Visit: No (2) Hypothyroid SNOMED Code(s): 48981991 ICD Code: E03.9 - HYPOTHYROIDISM, UNSPECIFIED Status: Acute Current Visit : No (3) Pain in left foot SNOMED Code(s): 16090845 ICD Code: M79.672 - PAIN IN LEFT FOOT Status: Acute Current Visit: No (4) Pain in left leg SNOMED Code(s): 671498390 ICD Code: M79.605 - PAIN IN LEFT LEG Status: Acute Current Visit: No (5) Sepsis SNOMED Code(s): 99462125 ICD Code: A41.9 - SEPSIS, UNSPECIFIED ORGANISM Status: Acute Current Visit: No Problem List Initiated/Reviewed/Updated: Yes Orders Last 24hrs: Active Orders 24 hr Category Date Time Status Patient Status [ADT] Routine ADT 09/07/17 11:23 Ordered Blood Glucose Check, Bedside [RC] DAILY Care 09/08/17 08:00 Ordered Intake and Output [RC] QSHIFT Care 09/07/17 11:25 Ordered Oxygen Therapy [RC] PRN Care 09/07/17 11:23 Ordered Up With Assistance [RC] ASDIRECTED Care 09/07/17 11:23 Ordered Up to Chair [RC] ASDIRECTED Care 09/07/17 11:23 Ordered VTE/DVT Education [RC] Per Unit Routine Care 09/07/17 11:23 Ordered Vital Signs [RC] PER UNIT ROUTINE Care 09/07/17 11:23 Ordered OT Evaluation and Treatment [CONS] Routine Cons 09/07/17 11:23 Ordered PT Evaluation and Treatment [CONS] Routine Cons 09/07/17 11:23 Ordered Consistent Carbohydrate Diet [DIET] Diet 09/07/17 Lunch Ordered Acetaminophen/HYDROcodone [[place] 325-5 MG] Med 09/07/17 11:23 Ordered 1 tab PO Q6H PRN Aspirin Med 09/08/17 08:00 Ordered 81 mg PO DAILY Cefuroxime [Ceftin] Med 09/07/17 11:45 Ordered 500 mg PO BID Clopidogrel [Plavix] Med 09/08/17 08:00 Ordered 75 mg PO DAILY Docusate Sodium [Colace] Med 09/07/17 20:00 Ordered 100 mg PO BID Latanoprost [Xalatan 0.005% Ophth Soln] Med 09/08/17 08:00 Ordered 1 drop OP DAILY Lisinopril [Prinivil] Med 09/08/17 08:00 Ordered 2 tab PO DAILY Magnesium Hydroxide [Milk of Magnesia] Med 09/07/17 11:23 Ordered 30 ml PO BEDTIME PRN Metoprolol Tartrate [Lopressor] Med 09/07/17 20:00 Ordered 50 mg PO BID Omeprazole [Omeprazole] Med 09/08/17 08:00 Ordered 20 mg PO DAILY Tuberculin, PPD [Aplisol] Med 09/07/17 11:23 Once 5 unit IDERM ONETIME ONE amLODIPine [Norvasc] Med 09/08/17 08:00 Ordered 10 mg PO DAILY metFORMIN [Glucophage] Med 09/07/17 17:00 Ordered 500 mg PO BIDMEALS Resuscitation Status Routine Resus Stat 09/07/17 11:23 Ordered Assessment/Plan Comment:: 09-07-2017 87 yr female transfer to Swing bed program with sepsis and positive blood cultures of Haemophilus influenza. Rocephin 1 gm IV given daily for last 4 days. Improvement noted. If temperature greater than 101, will obtain blood culture X 2. DVT ruled out and CT and U/S of kidney and mild hydronephrosis of right kidney noted. Continue to monitor kidney function. Hold HCTZ, hold NSAIDS, decrease dose of Metformin. Continue with I/O and daily weight. Electrolyte imbalance noted and Diabetes Type 2, controlled with Metformin. Hypoglycemia noted on admit to acute and has blood sugars have improved and adequate intake and output noted. Continue with consistent carbohydrate diet. Daily blood sugar. Pain to left leg and positive probable Barry's cyst. superficial laceration to toe from nail clipping at home before admit. Bullae to left leg and foot and improving. Change dressing to left foot daily. Pt has been using incentive spirometer, will increase activity to up in chair more often today. Referral to PT/OT for strengthening. Hypothyroid: Continue levothyroxine 75 daily. history of GERD: Continue with Omeprazole daily. CAD: Continue with amlodipine, clopidogrel, metoprolol and lisinopril.
[2017-09-07] MEDS: Levothyroxine 75 MCG Tab PO SCH (13:19)
[2017-09-07] MEDS: Acetaminophen/HYDROcodone 325-5 MG Tab PO PRN ×2 (13:25→19:40)
[2017-09-07] MEDS ORDERED: metFORMIN 500 MG Tab PO SCH (17:00)
[2017-09-07] MEDS ORDERED: metFORMIN 1,000 MG Tab PO SCH (17:00)
[2017-09-07] MEDS: Metoprolol Tartrate 50 MG Tab PO SCH (19:41)
[2017-09-07] MEDS: Docusate Sodium 100 MG Cap PO SCH (19:42)
[2017-09-07] MEDS: Latanoprost 0.005% Ophth Soln 2.5 ML Bottle EYEBOTH SCH (19:44)
[2017-09-07] MEDS: DORZOLAMIDE EYEBOTH SCH (19:47)
[2017-09-07] MEDS: TIMOLOL EYEBOTH SCH (19:47)
[2017-09-08] MEDS: Acetaminophen/HYDROcodone 325-5 MG Tab PO PRN ×2 (06:48→13:19)
[2017-09-08] MEDS: Levothyroxine 75 MCG Tab PO SCH (06:48)
[2017-09-08] MEDS ORDERED: Levothyroxine 75 MCG Tab PO SCH (07:00)
[2017-09-08] MEDS ORDERED: Non-Formulary Medication 1 Each (Latanoprost [Xalatan 0.005% Ophth Soln] 1 DROP) OP SCH (08:00)
[2017-09-08] MEDS ORDERED: Non-Formulary Medication 1 Each (Omeprazole [Omeprazole] 20 MG) PO SCH (08:00)
[2017-09-08] MEDS: Docusate Sodium 100 MG Cap PO SCH ×2 (08:21→19:24)
[2017-09-08] MEDS: Aspirin 81 MG Tab.Chew PO SCH (08:21)
[2017-09-08] MEDS: Metoprolol Tartrate 50 MG Tab PO SCH ×2 (08:21→19:24)
[2017-09-08] MEDS: Omeprazole 20 MG Cap.CR PO SCH (08:22)
[2017-09-08] MEDS: Clopidogrel 75 MG Tab PO SCH (08:22)
[2017-09-08] MEDS: amLODIPine 10 MG Tab PO SCH (08:22)
[2017-09-08] MEDS: Lisinopril 20 MG Tab PO SCH (08:22)
[2017-09-08] MEDS: DORZOLAMIDE EYEBOTH SCH ×2 (08:25→19:35)
[2017-09-08] MEDS: TIMOLOL EYEBOTH SCH ×2 (08:25→19:35)
[2017-09-08] MEDS: cefTRIAXone 1 GM in Sodium Chloride 0.9% 50 ML IV SCH (18:45)
[2017-09-08] MEDS: Acetaminophen 500 MG Tab PO PRN (19:28)
[2017-09-08] MEDS: Latanoprost 0.005% Ophth Soln 2.5 ML Bottle EYEBOTH SCH (19:35)
[2017-09-09] MEDS ORDERED: Sodium Chloride 0.9% 10 ML Syringe FLUSH PRN (01:23)
[2017-09-09] MEDS: Acetaminophen 500 MG Tab PO PRN ×4 (02:49→23:39)
[2017-09-09] MEDS: Levothyroxine 75 MCG Tab PO SCH ×2 (05:29→06:19)
[2017-09-09] MEDS: Aspirin 81 MG Tab.Chew PO SCH (08:32)
[2017-09-09] MEDS: Metoprolol Tartrate 50 MG Tab PO SCH ×2 (08:33→19:55)
[2017-09-09] MEDS: Docusate Sodium 100 MG Cap PO SCH ×2 (08:33→19:54)
[2017-09-09] MEDS: Omeprazole 20 MG Cap.CR PO SCH (08:34)
[2017-09-09] MEDS: amLODIPine 10 MG Tab PO SCH (08:34)
[2017-09-09] MEDS: Lisinopril 20 MG Tab PO SCH (08:35)
[2017-09-09] MEDS: Clopidogrel 75 MG Tab PO SCH (08:35)
[2017-09-09] MEDS: DORZOLAMIDE EYEBOTH SCH ×2 (08:36→19:54)
[2017-09-09] MEDS: TIMOLOL EYEBOTH SCH ×2 (08:36→19:54)
[2017-09-09] MEDS: Sodium Chloride 0.9% 10 ML Syringe FLUSH SCH ×2 (08:41→20:08)
--- NOTE | 2017-09-09 11:20 | PCM.PN ---
- General Info Date of Service: 09/09/17 Admission Dx/Problem (Free Text): Admission Diagnosis/Problem Admission Diagnosis/Problem Sepsis Subjective Update: My leg is feeling better and sleeping well. Family states she was confused to place yesterday. Family report pt improved today. Functional Status: Reports: Pain Controlled, Tolerating Diet, Urinating - Review of Systems General: Reports: Weakness HEENT: Reports: No Symptoms, Glasses Pulmonary: Reports: No Symptoms Cardiovascular: Reports: No Symptoms Gastrointestinal: Reports: No Symptoms Genitourinary: Reports: No Symptoms Musculoskeletal: Reports: Foot Pain. Denies: Leg Pain Skin: Reports: Other (Blister to top of foot) Neurological: Reports: No Symptoms Psychiatric: Reports: No Symptoms - Patient Data Vitals - Most Recent: Last Vital Signs Temp 98 F 09/09/17 08:30 Pulse 71 09/09/17 08:33 Resp 16 09/09/17 08:30 BP 166/64 H 09/09/17 08:35 Pulse Ox 98 09/09/17 08:30 Weight - Most Recent: 117 lb 4 oz I&O - Last 24 Hours: Intake & Output 09/08/17 09/09/17 09/09/17 22:59 06:59 14:59 Intake Total 1390 280 Output Total 1300 1150 Balance 90 -870 Lab Results Last 24 Hours: Laboratory Results - last 24 hr 09/08/17 09/09/17 Range/Units 17:45 08:20 WBC 18.5 H 18.8 H (4.0-11.0) K/uL RBC 2.95 L 3.04 L (3.80-5.80) M/uL Hgb 9.7 L 10.0 L (11.5-16.5) g/dL Hct 28.0 L 28.9 L (37.0-47.0) % MCV 95 95 (76-96) fL MCH 32.9 H 32.9 H (27.0-32.0) pg MCHC 34.6 34.6 (31.0-35.0) g/dL RDW 12.3 12.3 (11.0-16.0) % Plt Count 263 300 (150-500) K/uL MPV 9.9 10.1 H (6.0-10.0) fL Neut % (Auto) 83.6 H 85.0 H (45.0-70.0) % Lymph % (Auto) 7.6 L 6.3 L (20.0-40.0) % [place] % (Auto) 7.1 7.5 (3.0-10.0) % Eos % (Auto) 1.3 0.9 L (1.0-5.0) % Baso % (Auto) 0.4 0.3 (0.0-0.5) % Neut # (Auto) 15.46 H 16.29 H (2.00-7.50) K/uL Lymph # (Auto) 1.41 L 1.20 L (1.50-4.00) K/uL [place] # (Auto) 1.32 H 1.43 H (0.20-0.80) K/uL Eos # (Auto) 0.24 0.17 (0.04-0.40) K/uL Baso # (Auto) 0.07 0.06 (0.02-0.10) K/uL Med Orders - Current: Current Medications Acetaminophen (Tylenol Extra Strength) 500 mg PO Q4H PRN PRN Reason: Pain (moderate 4-6) Last Admin: 09/09/17 10:04 Dose: 500 mg Amlodipine Besylate (Norvasc) [address] [facility] Last Admin: 09/09/17 08:34 Dose: 10 mg Aspirin (Aspirin) [address] [facility] Last Admin: 09/09/17 08:32 Dose: 81 mg Clopidogrel Bisulfate (Plavix) [address] [facility] Last Admin: 09/09/17 08:35 Dose: 75 mg Docusate Sodium (Colace) [address] [facility] Last Admin: 09/09/17 08:33 Dose: 100 mg Ceftriaxone Sodium 1 gm/ (Sodium Chloride) 50 mls @ 200 mls/hr IV Q24H [facility] Last Admin: 09/08/17 18:45 Dose: 200 mls/hr Latanoprost (Xalatan 0.005% Ophth Soln) 2.[address] [facility] Last Admin: 09/08/17 19:35 Dose: 1 drop Levothyroxine Sodium (Levothyroxine) [address] [facility] Last Admin: 09/09/17 06:19 Dose: Not Given Lisinopril (Prinivil) [address] [facility] Last Admin: 09/09/17 08:35 Dose: 20 mg Magnesium Hydroxide (Milk Of Magnesia) 30 ml PO BEDTIME PRN PRN Reason: Constipation Metoprolol Tartrate (Lopressor) [address] [facility] Last Admin: 09/09/17 08:33 Dose: 50 mg Dorzolamide Hcl/Timolol Maleate Opthalamic Drops [address] [facility] Last Admin: 09/09/17 08:36 Dose: 1 each Omeprazole (Omeprazole) [address] [facility] Last Admin: 09/09/17 08:34 Dose: 20 mg Sodium Chloride (Saline Flush) [address] [facility] Last Admin: 09/09/17 08:41 Dose: 10 ml Sodium Chloride (Saline Flush) 10 ml FLUSH SEECOMMENT PRN PRN Reason: IV Use Discontinued Medications Hydrocodone Bitart/Acetaminophen ([place] 325-5 Mg) 1 tab PO Q6H PRN PRN Reason: Pain (moderate 4-6) Last Admin: 09/08/17 13:19 Dose: 1 tab Cefuroxime Axetil (Ceftin) [address] [facility] Last Admin: 09/08/17 08:21 Dose: 500 mg Levothyroxine Sodium (Levothyroxine) [address] [facility] Metformin HCl (Glucophage) [address] [facility] Last Admin: 09/07/17 18:18 Dose: 500 mg Tuberculin PPD (Aplisol) 5 unit IDERM ONETIME ONE Stop: 09/07/17 11:24 Last Admin: 09/07/17 20:08 Dose: Not Given - Exam Quality Assessment: No: Supplemental Oxygen, Urine Catheter General: Alert, Oriented, No Acute Distress HEENT: Mucous Membr. Moist/[place] Neck: Supple, Trachea Midline Lungs: Clear to Auscultation, Normal Respiratory Effort Cardiovascular: Regular Rate, Regular Rhythm GI/Abdominal Exam: Soft, Non-Tender (Female) Exam: Deferred Back Exam: Normal Inspection Extremities: No Pedal Edema, Normal Capillary Refill, Redness (from blister to top of foot. Skin is intact with small pinhole opening to top of foot. ). No : Leg Pain Peripheral Pulses: 2+: Dorsalis Pedis (L), Dorsalis Pedis (R) Skin: Warm, Dry Neurological: No New Focal Deficit Psy/Mental Status: Alert, Normal Affect, Normal Mood - Problem List & Annotations (1) Diabetes mellitus type 2 in nonobese SNOMED Code(s): 887336401 Code(s): E11.9 - TYPE 2 DIABETES MELLITUS WITHOUT COMPLICATIONS Status: Acute Current Visit: No (2) Hypothyroid SNOMED Code(s): 49679407 Code(s): E03.9 - HYPOTHYROIDISM, UNSPECIFIED Status: Acute Current Visit : No (3) Pain in left foot SNOMED Code(s): 40380238 Code(s): M79.672 - PAIN IN LEFT FOOT Status: Acute Current Visit: No (4) Pain in left leg SNOMED Code(s): 288990895 Code(s): M79.605 - PAIN IN LEFT LEG Status: Acute Current Visit: No (5) Sepsis SNOMED Code(s): 25918976 Code(s): A41.9 - SEPSIS, UNSPECIFIED ORGANISM Status: Acute Current Visit : No - Problem List Review Problem List Initiated/Reviewed/Updated: Yes - My Orders Last 24 Hours: My Active Orders 09/09/17 01:23 Sodium Chloride 0.9% [Saline Flush] 10 ml FLUSH SEECOMMENT PRN 09/09/17 08:00 Sodium Chloride 0.9% [Saline Flush] 10 ml FLUSH Q12HR - Plan Plan:: Pt is improved today with cognition. WBC stable from last pm. Swelling and pain improved to left leg. 87 yr female with Swing bed program with sepsis and positive blood cultures of Haemophilus influenza. Rocephin 1 gm IV given daily for last 4 days. Improvement noted. If temperature greater than 101, will obtain blood culture X 2. Ceftin oral given Sunday and Sunday. Pt was confused and request for square dance caller physician to assess pt. CBC last night and this am. WBC elevated and Rocephin IV restarted and holding Rocephin. Holding narcotics for relief of pain and will use Tylenol for relief of pain. Encourage to be up in chair today and use of incentive spirometer to keep lungs clear. DVT ruled out and CT and U/S of kidney and mild hydronephrosis of right kidney noted. Continue to monitor kidney function. Hold HCTZ, hold NSAIDS, Holding Metformin. Continue with I/O and daily weight. Electrolyte imbalance noted and Diabetes Type 2. Hypoglycemia noted on admit to acute and has blood sugars have improved and adequate intake and output noted. Continue with consistent carbohydrate diet. Daily blood sugar. No pain to left leg and positive probable Barry's cyst. Superficial laceration to toe from nail clipping at home before admit. Bullae to left leg and foot and improving. Mepilex dressing applied today after gentle cleansing with Nacl. Continue with PT/OT for strengthening. Hypothyroid: Continue levothyroxine 75 daily. History of GERD: Continue with Omeprazole daily. CAD: Continue with amlodipine, clopidogrel, metoprolol and lisinopril. Labs: Repeat CBC and BMP in am 09-10-2017
[2017-09-09] MEDS: Insulin Aspart 100 Units/ML 3 ML Pen SUBCUT SCH ×3 (11:54→20:05)
[2017-09-09] MEDS: cefTRIAXone 1 GM in Sodium Chloride 0.9% 50 ML IV SCH (18:09)
[2017-09-09] MEDS: Latanoprost 0.005% Ophth Soln 2.5 ML Bottle EYEBOTH SCH (19:54)
[2017-09-10] MEDS: Acetaminophen 500 MG Tab PO PRN ×3 (06:03→15:25)
[2017-09-10] MEDS: Levothyroxine 75 MCG Tab PO SCH (06:03)
[2017-09-10] MEDS: Omeprazole 20 MG Cap.CR PO SCH (07:59)
[2017-09-10] MEDS: Aspirin 81 MG Tab.Chew PO SCH (07:59)
[2017-09-10] MEDS: Docusate Sodium 100 MG Cap PO SCH ×2 (07:59→21:02)
[2017-09-10] MEDS: amLODIPine 10 MG Tab PO SCH (08:00)
[2017-09-10] MEDS: Clopidogrel 75 MG Tab PO SCH (08:00)
[2017-09-10] MEDS: Insulin Aspart 100 Units/ML 3 ML Pen SUBCUT SCH ×4 (08:02→21:00)
[2017-09-10] MEDS: Lisinopril 20 MG Tab PO SCH (08:02)
[2017-09-10] MEDS: DORZOLAMIDE EYEBOTH SCH ×2 (08:02→21:01)
[2017-09-10] MEDS: Metoprolol Tartrate 50 MG Tab PO SCH ×2 (08:02→21:02)
[2017-09-10] MEDS: TIMOLOL EYEBOTH SCH ×2 (08:02→21:01)
[2017-09-10] MEDS: Sodium Chloride 0.9% 10 ML Syringe FLUSH SCH ×2 (08:13→21:30)
--- NOTE | 2017-09-10 08:20 | PCM.PN ---
- General Info Date of Service: 09/10/17 Admission Dx/Problem (Free Text): Admission Diagnosis/Problem Admission Diagnosis/Problem Sepsis Subjective Update: Pt states she is having no pain to the left leg. States pain to left hip this am. She is ambulatory with a limp. Functional Status: Reports: Tolerating Diet, Urinating, New Symptoms (left hip pain), Incentive Spirometry - Review of Systems General: Reports: Weakness HEENT: Reports: Glasses. Denies: Visual Changes Pulmonary: Reports: No Symptoms Cardiovascular: Reports: No Symptoms Gastrointestinal: Reports: No Symptoms Genitourinary: Reports: No Symptoms Musculoskeletal: Reports: Other (left hip pain) Skin: Reports: No Symptoms Neurological: Denies: Confusion, Dizziness Psychiatric: Reports: No Symptoms - Patient Data Vitals - Most Recent: Last Vital Signs Temp 99.7 F 09/09/17 20:00 Pulse 72 09/10/17 08:02 Resp 15 09/09/17 20:00 BP 178/57 H 09/10/17 08:02 Pulse Ox 97 09/09/17 20:00 Weight - Most Recent: 112 lb 6 oz I&O - Last 24 Hours: Intake & Output 09/09/17 09/10/17 09/10/17 22:59 06:59 14:59 Intake Total 990 380 Output Total 1400 1750 Balance -410 -1370 Lab Results Last 24 Hours: Laboratory Results - last 24 hr 09/09/17 09/09/17 09/09/17 Range/Units 08:20 10:24 16:09 WBC 18.8 H (4.0-11.0) K/uL RBC 3.04 L (3.80-5.80) M/uL Hgb 10.0 L (11.5-16.5) g/dL Hct 28.9 L (37.0-47.0) % MCV 95 (76-96) fL MCH 32.9 H (27.0-32.0) pg MCHC 34.6 (31.0-35.0) g/dL RDW 12.3 (11.0-16.0) % Plt Count 300 (150-500) K/uL MPV 10.1 H (6.0-10.0) fL Neut % (Auto) 85.0 H (45.0-70.0) % Lymph % (Auto) 6.3 L (20.0-40.0) % [place] % (Auto) 7.5 (3.0-10.0) % Eos % (Auto) 0.9 L (1.0-5.0) % Baso % (Auto) 0.3 (0.0-0.5) % Neut # (Auto) 16.29 H (2.00-7.50) K/uL Lymph # (Auto) 1.20 L (1.50-4.00) K/uL [place] # (Auto) 1.43 H (0.20-0.80) K/uL Eos # (Auto) 0.17 (0.04-0.40) K/uL Baso # (Auto) 0.06 (0.02-0.10) K/uL Sodium (136-145) mmol/L Potassium (3.5-5.1) mmol/L Chloride (98-107) mmol/L Carbon Dioxide (21.0-32.0) mmol/L Anion Gap (5.0-15.0) mmol/L BUN (8-26) mg/dL Creatinine (0.55-1.02) mg/dL Est Cr Clr Drug Dosing mL/min Estimated GFR (MDRD) (>60) MLS/MIN BUN/Creatinine Ratio (6-25) Glucose (74-100) mg/dL POC Glucose 328 H 253 H (74-110) mg/dL Calcium (8.5-10.1) mg/dL 09/09/17 09/10/17 09/10/17 Range/Units 19:04 07:00 07:00 WBC 17.3 H (4.0-11.0) K/uL RBC 2.63 L (3.80-5.80) M/uL Hgb 8.6 L (11.5-16.5) g/dL Hct 25.2 L (37.0-47.0) % MCV 96 (76-96) fL MCH 32.7 H (27.0-32.0) pg MCHC 34.1 (31.0-35.0) g/dL RDW 12.5 (11.0-16.0) % Plt Count 330 (150-500) K/uL MPV 10.2 H (6.0-10.0) fL Neut % (Auto) 84.3 H (45.0-70.0) % Lymph % (Auto) 6.9 L (20.0-40.0) % [place] % (Auto) 7.2 (3.0-10.0) % Eos % (Auto) 1.0 (1.0-5.0) % Baso % (Auto) 0.6 H (0.0-0.5) % Neut # (Auto) 14.59 H (2.00-7.50) K/uL Lymph # (Auto) 1.19 L (1.50-4.00) K/uL [place] # (Auto) 1.25 H (0.20-0.80) K/uL Eos # (Auto) 0.18 (0.04-0.40) K/uL Baso # (Auto) 0.11 H (0.02-0.10) K/uL Sodium 134 L (136-145) mmol/L Potassium 4.2 (3.5-5.1) mmol/L Chloride 102 (98-107) mmol/L Carbon Dioxide 21.3 (21.0-32.0) mmol/L Anion Gap 14.9 (5.0-15.0) mmol/L BUN 36 H (8-26) mg/dL Creatinine 1.80 H (0.55-1.02) mg/dL Est Cr Clr Drug Dosing 17.79 mL/min Estimated GFR (MDRD) 26 L (>60) MLS/MIN BUN/Creatinine Ratio 20.0 (6-25) Glucose 243 H (74-100) mg/dL POC Glucose 281 H (74-110) mg/dL Calcium 8.0 L (8.5-10.1) mg/dL Med Orders - Current: Current Medications Acetaminophen (Tylenol Extra Strength) 500 mg PO Q4H PRN PRN Reason: Pain (moderate 4-6) Last Admin: 09/10/17 06:03 Dose: 500 mg Amlodipine Besylate (Norvasc) 10 mg PO DAILY [facility] Last Admin: 09/10/17 08:00 Dose: 10 mg Aspirin (Aspirin) 81 mg PO DAILY [facility] Last Admin: 09/10/17 07:59 Dose: 81 mg Clopidogrel Bisulfate (Plavix) 75 mg PO DAILY [facility] Last Admin: 09/10/17 08:00 Dose: 75 mg Docusate Sodium (Colace) 100 mg PO BID [facility] Last Admin: 09/10/17 07:59 Dose: 100 mg Ceftriaxone Sodium 1 gm/ (Sodium Chloride) 50 mls @ 200 mls/hr IV Q24H [facility] Last Admin: 09/09/17 18:09 Dose: 200 mls/hr Insulin Aspart (Novolog) 0 unit SUBCUT QIDACANDBED [facility]; Protocol Last Admin: 09/10/17 08:02 Dose: 2 units Latanoprost (Xalatan 0.005% Oph Soln) 2.5 ml EYEBOTH BEDTIME [facility] Last Admin: 09/09/17 19:54 Dose: 1 drop Levothyroxine Sodium (Levothyroxine) 75 mcg PO ACBREAKFAST [facility] Last Admin: 09/10/17 06:03 Dose: 75 mcg Lisinopril (Prinivil) 20 mg PO DAILY [facility] Last Admin: 09/10/17 08:02 Dose: 20 mg Magnesium Hydroxide (Milk Of Magnesia) 30 ml PO BEDTIME PRN PRN Reason: Constipation Metoprolol Tartrate (Lopressor) 50 mg PO BID [facility] Last Admin: 09/10/17 08:02 Dose: 50 mg Dorzolamide Hcl/Timolol Maleate Opthalamic Drops 1 each EYEBOTH BID [facility] Last Admin: 09/10/17 08:02 Dose: 1 each Omeprazole (Omeprazole) 20 mg PO DAILY [facility] Last Admin: 09/10/17 07:59 Dose: 20 mg Sodium Chloride (Saline Flush) 10 ml FLUSH Q12HR [facility] Last Admin: 09/10/17 08:13 Dose: 10 ml Sodium Chloride (Saline Flush) 10 ml FLUSH SEECOMMENT PRN PRN Reason: IV Use Discontinued Medications Hydrocodone Bitart/Acetaminophen ([place] 325-5 Mg) 1 tab PO Q6H PRN PRN Reason: Pain (moderate 4-6) Last Admin: 09/08/17 13:19 Dose: 1 tab Cefuroxime Axetil (Ceftin) 500 mg PO BID [facility] Last Admin: 09/08/17 08:21 Dose: 500 mg Levothyroxine Sodium (Levothyroxine) 75 mcg PO ACBREAKFAST [facility] Metformin HCl (Glucophage) 500 mg PO BIDMEALS [facility] Last Admin: 09/07/17 18:18 Dose: 500 mg Tuberculin PPD (Aplisol) 5 unit IDERM ONETIME ONE Stop: 09/07/17 11:24 Last Admin: 09/07/17 20:08 Dose: Not Given - Exam General: Alert, Oriented, No Acute Distress HEENT: Mucous Membr. Moist/[place] Neck: Supple, Trachea Midline Lungs: Clear to Auscultation, Normal Respiratory Effort Cardiovascular: Regular Rate, Regular Rhythm, Other (BP higher today, while pt sitting on scale chair and no am medications.) GI/Abdominal Exam: Normal Bowel Sounds, Soft, Non-Tender (Female) Exam: Deferred Back Exam: Normal Inspection Extremities: Other (pretibial minimal edema to left lower leg. Pain to left hip with sitting up for weight.). No: Increased Warmth Skin: Warm, Dry Neurological: No New Focal Deficit Psy/Mental Status: Alert, Normal Affect, Normal Mood - Problem List & Annotations (1) Diabetes mellitus type 2 in nonobese SNOMED Code(s): 478219908 Code(s): E11.9 - TYPE 2 DIABETES MELLITUS WITHOUT COMPLICATIONS Status: Acute Current Visit: No (2) Hypothyroid SNOMED Code(s): 73476963 Code(s): E03.9 - HYPOTHYROIDISM, UNSPECIFIED Status: Acute Current Visit : No (3) Pain in left foot SNOMED Code(s): 59735664 Code(s): M79.672 - PAIN IN LEFT FOOT Status: Acute Current Visit: No (4) Pain in left leg SNOMED Code(s): 549578240 Code(s): M79.605 - PAIN IN LEFT LEG Status: Acute Current Visit: No (5) Sepsis SNOMED Code(s): 14463488 Code(s): A41.9 - SEPSIS, UNSPECIFIED ORGANISM Status: Acute Current Visit : No - Problem List Review Problem List Initiated/Reviewed/Updated: Yes - My Orders Last 24 Hours: My Active Orders 09/09/17 08:00 Sodium Chloride 0.9% [Saline Flush] 10 ml FLUSH Q12HR 09/09/17 11:30 Insulin Aspart [NovoLOG] See Protocol SUBCUT QIDACANDBED - Plan Plan:: 09-10-2017 87 yr female in Swing bed program with sepsis and positive blood cultures of Haemophilus influenza. Rocephin 1 gm IV given daily for 4 days, trial on Ceftin PO bid and WBC elevated, changed back to Rocephin IV. Improvement noted. Continue to monitor. Slow progress with her WBC. If temperature greater than 101, will obtain blood culture X 2. Will stop Rocephin today and start Zosyn every 8 hour. Repeat CBC in am. DVT ruled out and CT and U/S of kidney and mild hydronephrosis of right kidney noted. Continue to monitor kidney function. Hold HCTZ, hold NSAIDS, Hold Metformin, started Novolog sliding scale 09-09-17. Start Levemir 5 units sq every pm . Continue with I/O and daily weight. Edema less to left lower leg and improved output. Electrolyte imbalance noted and Diabetes Type 2, holding Metformin. Hypoglycemia noted on admit to acute and Glipizide and Metformin stopped. Continue with consistent carbohydrate diet. Daily blood sugar. Pain to left leg improved and positive probable Barry's cyst. superficial laceration to toe from nail clipping, at home before admit. Bullae to left leg and foot, unchanged. Mepilexdressing to left foot . Pt has been using incentive spirometer, will increase activity to up in chair. Referral to PT/OT for strengthening. Hypothyroid: Continue levothyroxine 75 daily. History of GERD: Continue with Omeprazole daily. CAD: Continue with amlodipine, clopidogrel, metoprolol and lisinopril. Low calcium: Will start PO calcium tonight. Discussed pt care and status with daughter. Will change antibiotic and repeat CBC in am. Start Levemir this evening. Daughter states she and family would like to see the pt stronger and improvement in WBC and blood sugars and possibly return home while they are present. Family would not be interested in her discharge to home by self.
[2017-09-10] MEDS ORDERED: Diclofenac Sodium 1% Gel 100 GM Tube TOP PRN (11:40)
[2017-09-10] MEDS: Piperacillin/Tazobactam 2.25 GM in Sodium Chloride 0.9% 50 ML IV SCH ×2 (13:10→21:30)
[2017-09-10] MEDS: Trolamine Salicylate/Aloe Vera 10% Crm 85 GM Tube TOP SCH ×2 (15:25→21:02)
[2017-09-10] MEDS ORDERED: Calcium Carbonate/Vitamin D3 600 MG-200 Units Tab PO SCH (17:00)
[2017-09-10] MEDS ORDERED: cefTRIAXone 1 GM in Sodium Chloride 0.9% 50 ML IV SCH (18:00)
[2017-09-10] MEDS: Calcium Carbonate/Vitamin D3 1500 MG-400 Units Tab PO SCH (18:26)
[2017-09-10] MEDS ORDERED: Insulin Detemir 100 Units/ML 3 ML Pen SUBCUT SCH (20:00)
[2017-09-10] MEDS: Latanoprost 0.005% Ophth Soln 2.5 ML Bottle EYEBOTH SCH (21:01)
[2017-09-11] MEDS: Piperacillin/Tazobactam 2.25 GM in Sodium Chloride 0.9% 50 ML IV SCH ×2 (03:31→13:44)
[2017-09-11] MEDS: Acetaminophen 500 MG Tab PO PRN ×2 (03:33→10:27)
[2017-09-11] MEDS: Levothyroxine 75 MCG Tab PO SCH (07:42)
[2017-09-11] MEDS: Insulin Aspart 100 Units/ML 3 ML Pen SUBCUT SCH ×2 (07:54→13:42)
[2017-09-11] MEDS ORDERED: Lactobacillus Acidophilus/Lactobacillus Sporogenes (Probiotic) Tab PO SCH (08:00)
[2017-09-11] MEDS: Omeprazole 20 MG Cap.CR PO SCH (08:59)
[2017-09-11] MEDS: Aspirin 81 MG Tab.Chew PO SCH (08:59)
[2017-09-11] MEDS: Calcium Carbonate/Vitamin D3 1500 MG-400 Units Tab PO SCH (08:59)
[2017-09-11] MEDS: Docusate Sodium 100 MG Cap PO SCH (08:59)
[2017-09-11] MEDS: Clopidogrel 75 MG Tab PO SCH (09:00)
[2017-09-11] MEDS: Lisinopril 20 MG Tab PO SCH (09:00)
[2017-09-11] MEDS: Metoprolol Tartrate 50 MG Tab PO SCH (09:00)
[2017-09-11] MEDS: Trolamine Salicylate/Aloe Vera 10% Crm 85 GM Tube TOP SCH ×2 (09:06→13:43)
[2017-09-11] MEDS: Sodium Chloride 0.9% 10 ML Syringe FLUSH SCH (09:07)
[2017-09-11] MEDS: TIMOLOL EYEBOTH SCH (09:07)
[2017-09-11] MEDS: DORZOLAMIDE EYEBOTH SCH (09:07)
[2017-09-11] MEDS: amLODIPine 10 MG Tab PO SCH (09:07)
[2017-09-11 10:43] VITALS: BP 155/67
--- NOTE | 2017-09-11 12:11 | PCM.DCSUM1 ---
Discharge Summary - Hospital Course HPI Initial Comments: Pt admit to Acute care facility with sepsis, hypoglycemia and pain to left ankle and foot. DVT ruled out with U/S and CT of head with no infarct and no hemorrhage. Blood cultures positive for haemophilus influenza. Pt has been treated with Rocpehin Iv, Ceftin PO and now Zosyn with WBC variable from 3.0 K on admit and now 15.6 K. Hemoglobin of 7.5 today. Pt was on Protonix and changes to Prilosec oral in preparation for discharge. History of diabetes and BS on admit of 30. Glipizide and Metformin d'cd and now order of Novolog sliding scale and Levemir 5 units at hs daily. Blood sugars of 243 and 269. Potassium slightly low today of 3.4, was 4.2 yesterday. Pt has been alert and slow to improve. She has had a decrease in appetite, but family report this is normal for her. On admit she was noted to have bullae to top of right foot and small laceration to toe on right foot. Pt states she was trimming toenails and got too close. Aspirate of bullae showed no growth. U/A complete and culture with no growth. Discussed pt status with Dr True MD at [facility] and states he will accept transfer of pt today. Discussed this with family and pt and in agreement to this plan. Will transfer with road ambulance. Diagnosis: Stroke: No - Discharge Data Discharge Date: 09/11/17 Discharge Disposition: DC/Tfer to Acute Hospital 02 Condition: Good - Discharge Diagnosis/Problem(s) (1) Diabetes mellitus type 2 in nonobese SNOMED Code(s): 525014368 ICD Code: E11.9 - TYPE 2 DIABETES MELLITUS WITHOUT COMPLICATIONS Status: Acute Current Visit: No (2) Hypothyroid SNOMED Code(s): 32629704 ICD Code: E03.9 - HYPOTHYROIDISM, UNSPECIFIED Status: Acute Current Visit : No (3) Pain in left foot SNOMED Code(s): 06199714 ICD Code: M79.672 - PAIN IN LEFT FOOT Status: Acute Current Visit: No (4) Pain in left leg SNOMED Code(s): 052666424 ICD Code: M79.605 - PAIN IN LEFT LEG Status: Resolved Current Visit: No (5) Sepsis SNOMED Code(s): 55764981 ICD Code: A41.9 - SEPSIS, UNSPECIFIED ORGANISM Status: Acute Current Visit: No - Patient Summary/Data Consults: Consultations 09/07/17 11:23 OT Evaluation and Treatment [CONS] Routine Please Evaluate and Treat. OT Reason for Consult: Strengthening This query below is only for informational purposes and is not editable. PT Evaluation and Treatment [CONS] Routine Please Evaluate and Treat. PT Reason for Consult: Strengthening This query below is only for informational purposes and is not editable. - Patient Instructions Diet: Diabetic Diet - Discharge Plan *PRESCRIPTION DRUG MONITORING PROGRAM REVIEWED*: Not Applicable *COPY OF PRESCRIPTION DRUG MONITORING REPORT IN PATIENT HASEEB: Not Applicable Home Medications: Home Meds Aspirin [Mona Chewable] 81 mg PO DAILY 09/04/17 [History] Clopidogrel [Plavix] 75 mg PO DAILY 09/04/17 [History] Latanoprost [Xalatan] 1 drop OP DAILY 09/04/17 [History] Lisinopril [Prinivil] 2 tab PO DAILY 09/04/17 [History] Metoprolol Tartrate [Lopressor] 50 mg PO BID 09/04/17 [History] Multivitamin W/Iron, Minerals [Multivitamins with Iron] 1 each PO DAILY [History] Omeprazole 20 mg PO DAILY 09/04/17 [History] amLODIPine Besylate [Amlodipine Besylate] 10 mg PO DAILY 09/04/17 [History] Levothyroxine 75 tab PO DAILY 09/07/17 [History] - Discharge Summary/Plan Comment Discharge Summary/Plan Comment: Pt admit to Acute care facility with sepsis, hypoglycemia and pain to left ankle and foot. DVT ruled out with U/S and CT of head with no infarct and no hemorrhage. Blood cultures positive for haemophilus influenza. Pt has been treated with Rocpehin Iv, Ceftin PO and now Zosyn with WBC variable from 3.0 K on admit and now 15.6 K. Hemoglobin of 7.5 today. Pt was on Protonix and changes to Prilosec oral in preparation for discharge. History of diabetes and BS on admit of 30. Glipizide and Metformin d'cd and now order of Novolog sliding scale and Levemir 5 units at hs daily. Blood sugars of 243 and 269. Potassium slightly low today of 3.4, was 4.2 yesterday. Pt has been alert and slow to improve. She has had a decrease in appetite, but family report this is normal for her. On admit she was noted to have bullae to top of right foot and small laceration to toe on right foot. Pt states she was trimming toenails and got too close. Aspirate of bullae showed no growth. U/A complete and culture with no growth. Discussed pt status with Dr True MD at [facility] and states he will accept transfer of pt today. Discussed this with family and pt and in agreement to this plan. Will transfer via road ambulance. X- rays and CT images sent. - General Info Date of Service: 09/11/17 Admission Dx/Problem (Free Text: Admission Diagnosis/Problem Admission Diagnosis/Problem Sepsis Subjective Update: States she is feeling about the same. Pt states she is having no pain to the left leg. States pain to left hip this am. She is ambulatory with a limp. States ok for transfer to [place]. Functional Status: Reports: Tolerating Diet, Incentive Spirometry - Review of Systems General: Reports: Weakness. Denies: Appetite HEENT: Reports: No Symptoms, Glasses Pulmonary: Reports: No Symptoms Cardiovascular: Reports: No Symptoms Gastrointestinal: Reports: Decreased Appetite. Denies: Abdominal Pain, Nausea, Vomiting Genitourinary: Reports: No Symptoms Musculoskeletal: Reports: Other (left hip pain) Skin: Reports: Other (dressing to left foot) Neurological: Reports: No Symptoms Psychiatric: Reports: No Symptoms - Patient Data Vitals - Most Recent: Last Vital Signs Temp 99.8 F 09/11/17 10:17 Pulse 84 09/11/17 10:17 Resp 20 09/11/17 10:17 BP 155/67 H 09/11/17 10:17 Pulse Ox 93 L 09/11/17 10:17 Weight - Most Recent: 112 lb 6 oz I&O - Last 24 hours: Intake & Output 09/10/17 09/11/17 09/11/17 22:59 06:59 14:59 Intake Total 1130 253 Output Total 950 350 Balance 180 -97 Lab Results - Last 24 hrs: Laboratory Results - last 24 hr 09/10/17 09/10/17 09/10/17 Range/Units 11:02 16:14 19:57 WBC (4.0-11.0) K/uL RBC (3.80-5.80) M/uL Hgb (11.5-16.5) g/dL Hct (37.0-47.0) % MCV (76-96) fL MCH (27.0-32.0) pg MCHC (31.0-35.0) g/dL RDW (11.0-16.0) % Plt Count (150-500) K/uL MPV (6.0-10.0) fL Neut % (Auto) (45.0-70.0) % Lymph % (Auto) (20.0-40.0) % [place] % (Auto) (3.0-10.0) % Eos % (Auto) (1.0-5.0) % Baso % (Auto) (0.0-0.5) % Neut # (Auto) (2.00-7.50) K/uL Lymph # (Auto) (1.50-4.00) K/uL [place] # (Auto) (0.20-0.80) K/uL Eos # (Auto) (0.04-0.40) K/uL Baso # (Auto) (0.02-0.10) K/uL Sodium (136-145) mmol/L Potassium (3.5-5.1) mmol/L Chloride (98-107) mmol/L Carbon Dioxide (21.0-32.0) mmol/L Anion Gap (5.0-15.0) mmol/L BUN (8-26) mg/dL Creatinine (0.55-1.02) mg/dL Est Cr Clr Drug Dosing mL/min Estimated GFR (MDRD) (>60) MLS/MIN BUN/Creatinine Ratio (6-25) Glucose (74-100) mg/dL POC Glucose 299 H 284 H 345 H (74-110) mg/dL Calcium (8.5-10.1) mg/dL 09/11/17 09/11/17 Range/Units 07:20 07:20 WBC 15.6 H (4.0-11.0) K/uL RBC 2.32 L (3.80-5.80) M/uL Hgb 7.5 L (11.5-16.5) g/dL Hct 22.2 L (37.0-47.0) % MCV 96 (76-96) fL MCH 32.3 H (27.0-32.0) pg MCHC 33.8 (31.0-35.0) g/dL RDW 12.4 (11.0-16.0) % Plt Count 370 (150-500) K/uL MPV 10.0 (6.0-10.0) fL Neut % (Auto) 84.0 H (45.0-70.0) % Lymph % (Auto) 7.6 L (20.0-40.0) % [place] % (Auto) 7.4 (3.0-10.0) % Eos % (Auto) 0.4 L (1.0-5.0) % Baso % (Auto) 0.6 H (0.0-0.5) % Neut # (Auto) 13.09 H (2.00-7.50) K/uL Lymph # (Auto) 1.19 L (1.50-4.00) K/uL [place] # (Auto) 1.15 H (0.20-0.80) K/uL Eos # (Auto) 0.06 (0.04-0.40) K/uL Baso # (Auto) 0.10 (0.02-0.10) K/uL Sodium 134 L (136-145) mmol/L Potassium 3.4 L (3.5-5.1) mmol/L Chloride 102 (98-107) mmol/L Carbon Dioxide 21.6 (21.0-32.0) mmol/L Anion Gap 13.8 (5.0-15.0) mmol/L BUN 30 H (8-26) mg/dL Creatinine 1.69 H (0.55-1.02) mg/dL Est Cr Clr Drug Dosing 18.16 mL/min Estimated GFR (MDRD) 28 L (>60) MLS/MIN BUN/Creatinine Ratio 17.8 (6-25) Glucose 269 H (74-100) mg/dL POC Glucose (74-110) mg/dL Calcium 7.6 L (8.5-10.1) mg/dL Med Orders - Current: Current Medications Acetaminophen (Tylenol Extra Strength) 500 mg PO Q4H PRN PRN Reason: Pain (moderate 4-6) Last Admin: 07/17/18 10:27 Dose: 500 mg Amlodipine Besylate (Norvasc) 10 mg PO DAILY [facility] Last Admin: 09/11/17 09:07 Dose: 10 mg Aspirin (Aspirin) 81 mg PO DAILY [facility] Last Admin: 09/11/17 08:59 Dose: 81 mg Calcium Carbonate (Caltrate 600+D 1500 Mg-400 Units) 1 tab PO DAILY [facility] Last Admin: 09/11/17 08:59 Dose: 1 tab Clopidogrel Bisulfate (Plavix) 75 mg PO DAILY [facility] Last Admin: 09/11/17 09:00 Dose: 75 mg Docusate Sodium (Colace) 100 mg PO BID [facility] Last Admin: 09/11/17 08:59 Dose: 100 mg Piperacillin Sod/Tazobactam (Sod 2.25 gm/ Sodium Chloride) 50 mls @ 100 mls/hr IV Q8H [facility] Last Admin: 09/11/17 03:31 Dose: 100 mls/hr Insulin Aspart (Novolog) 0 unit SUBCUT QIDACANDBED [facility]; Protocol Last Admin: 09/10/17 21:00 Dose: 4 units Insulin Detemir (Levemir) 5 unit SUBCUT BEDTIME [facility] Last Admin: 09/10/17 21:00 Dose: 5 units Lactobacillus Acidophilus (Acidolphilus Extra Strength) 1 tab PO DAILY [facility] Last Admin: 09/11/17 08:59 Dose: 1 tab Latanoprost (Xalatan 0.005% Ophth Soln) 2.5 ml EYEBOTH BEDTIME [facility] Last Admin: 09/10/17 21:01 Dose: 2 drop Levothyroxine Sodium (Levothyroxine) 75 mcg PO ACBREAKFAST [facility] Last Admin: 09/11/17 07:42 Dose: 75 mcg Lisinopril (Prinivil) 20 mg PO DAILY [facility] Last Admin: 09/11/17 09:00 Dose: 20 mg Magnesium Hydroxide (Milk Of Magnesia) 30 ml PO BEDTIME PRN PRN Reason: Constipation Metoprolol Tartrate (Lopressor) 50 mg PO BID [facility] Last Admin: 09/11/17 09:00 Dose: 50 mg Dorzolamide Hcl/Timolol Maleate Opthalamic Drops 1 each EYEBOTH BID [facility] Last Admin: 09/11/17 09:07 Dose: 1 each Omeprazole (Omeprazole) 20 mg PO DAILY [facility] Last Admin: 09/11/17 08:59 Dose: 20 mg Sodium Chloride (Saline Flush) 10 ml FLUSH Q12HR [facility] Last Admin: 09/11/17 09:07 Dose: 10 ml Sodium Chloride (Saline Flush) 10 ml FLUSH SEECOMMENT PRN PRN Reason: IV Use Trolamine Salicylate (Aspercreme 10%) 85 gm TOP QID [facility] Last Admin: 09/11/17 09:06 Dose: 85 applic Discontinued Medications Hydrocodone Bitart/Acetaminophen ([facility] 325-5 Mg) 1 tab PO Q6H PRN PRN Reason: Pain (moderate 4-6) Last Admin: 09/08/17 13:19 Dose: 1 tab Calcium Carbonate (Calcium Carbonate/Vitamin D 600 Mg-200 Unit) 1 tab PO DAILY [facility] Last Admin: 09/10/17 18:58 Dose: Not Given Cefuroxime Axetil (Ceftin) 500 mg PO BID [facility] Last Admin: 09/08/17 08:21 Dose: 500 mg Ceftriaxone Sodium 1 gm/ (Sodium Chloride) 50 mls @ 200 mls/hr IV Q24H [facility] Last Admin: 09/09/17 18:09 Dose: 200 mls/hr Ceftriaxone Sodium 1 gm/ (Sodium Chloride) 50 mls @ 200 mls/hr IV Q24H [facility] Levothyroxine Sodium (Levothyroxine) 75 mcg PO ACBREAKFAST [facility] Metformin HCl (Glucophage) 500 mg PO BIDMEALS [facility] Last Admin: 09/07/17 18:18 Dose: 500 mg Tuberculin PPD (Aplisol) 5 unit IDERM ONETIME ONE Stop: 09/07/17 11:24 Last Admin: 09/07/17 20:08 Dose: Not Given - Exam Quality Assessment: Reports: Skin Breakdown (bullae on admit). Denies: Supplemental Oxygen, DVT Prophylaxis General: Reports: Alert, Oriented HEENT: Reports: Mucous Membr. Moist/[place] Neck: Reports: Supple, Trachea Midline Lungs: Reports: Clear to Auscultation, Normal Respiratory Effort Cardiovascular: Reports: Regular Rate, Regular Rhythm GI/Abdominal Exam: Normal Bowel Sounds, Soft, Non-Tender (Female) Exam: Deferred Rectal (Female) Exam: No: Black Stool, Bloody Stool Extremities: Normal Capillary Refill, Pedal Edema (left lower leg and foot, mild edema), Other (left hip pain with walking, hx of arthritis) Skin: Reports: Warm, Dry, Other (new bullae to left calf in last 24 hour) Wound/Incisions: Reports: Dressing Dry and Intact Neurological: Reports: No New Focal Deficit Psy/Mental Status: Reports: Alert, Normal Affect, Normal Mood
== END 2017-09-11 10:37 | DRG 872 ==
LOC: LB.MS 11:23 → UNDOADMIN 11:23 → LB.MS 17:00
PROVIDERS: ADMIT Nurse Practitioner Family; ATTEND Nurse Practitioner Family
DX: A41.3 Sepsis due to Hemophilus influenzae (principal); N13.30 Unspecified hydronephrosis; E11.9 Type 2 diabetes mellitus without complications; Z79.84 Long term (current) use of oral hypoglycemic drugs; E87.8 Other disorders of electrolyte and fluid balance, not elsewhere classified; M71.22 Synovial cyst of popliteal space [Baker], left knee; R23.8 Other skin changes; K21.9 Gastro-esophageal reflux disease without esophagitis; E03.9 Hypothyroidism, unspecified; M25.552 Pain in left hip; I25.10 Atherosclerotic heart disease of native coronary artery without angina pectoris; S91.119D Laceration without foreign body of unspecified toe without damage to nail, subsequent encounter; X58.XXXD Exposure to other specified factors, subsequent encounter; Z79.899 Other long term (current) drug therapy
CPT/HCPCS: 36415; 80048; 82962; 85025; 97161-GP; 97165-GO; A0425; A0429; A9270-GY; J0696; J2543; J7050

== ENCOUNTER 2017-09-20 07:10 | Inpatient (IN) | payer OTHER, MEDICARE, BC ==
[2017-09-21] MEDS ORDERED: Nitroglycerin 0.4 MG Tab.SL SL PRN (13:49)
[2017-09-21] MEDS ORDERED: hydrALAZINE 10 MG Tab PO SCH (14:00)
[2017-09-21] MEDS ORDERED: oxyCODONE 5 MG Tab PO PRN (14:08)
[2017-09-21] MEDS: traMADol 50 MG Tab PO PRN ×2 (14:43→22:55)
--- NOTE | 2017-09-21 14:54 | PCM.HP ---
H&P History of Present Illness - General Date of Service: 09/21/17 Admit Problem/Dx: Admission Diagnosis/Problem Admission Diagnosis/Problem Cellulitis Source of Information: Patient, Old Records, Other History Limitations: Reports: No Limitations - History of Present Illness Initial Comments - Free Text/Narative: This is a pleasant 87yo F admitted to [facility] bed for post thrombectomy care, wound care, and physical therapy for weakness. She was recently discharged from [facility]. Patient denies any concerns but continues to have chronic lower back pain and discomfort. Onset of Symptoms: Reports: Gradual Duration of Symptoms: Reports: Chronic, Improving Location: Reports: Lower Extremity, Left Quality: Reports: Ache Severity: Mild Improves with: Reports: Medication Worsens with: Reports: Movement Associated Symptoms: Reports: Weakness Left Feet Pain Score (Numeric/FACES): 5 - Related Data Allergies/Adverse Reactions: Allergies Allergy/AdvReac Type Severity Reaction Status Date / Time iron AdvReac Mild Fainting Verified 09/07/17 14:44 Home Medications: Home Meds Aspirin [Mona Chewable] 81 mg PO DAILY 09/04/17 [History] Clopidogrel [Plavix] 75 mg PO DAILY 09/04/17 [History] Latanoprost [Xalatan] 1 drop OP BEDTIME 09/04/17 [History] Lisinopril [Prinivil] 2 tab PO DAILY 09/04/17 [History] Metoprolol Tartrate [Lopressor] 50 mg PO BID 09/04/17 [History] Omeprazole 20 mg PO DAILY 09/04/17 [History] amLODIPine Besylate [Amlodipine Besylate] 10 mg PO DAILY 09/04/17 [History] Levothyroxine 75 tab PO ACBREAKFAST 09/07/17 [History] Acetaminophen [Acetaminophen 8 Hour] 650 mg PO Q4HR PRN 09/21/17 [History] Amoxicillin/Clavulanate K [Augmentin 500-125 MG] 1 tab PO BID 09/21/17 [History] Ascorbic Acid [Vitamin C] 500 mg PO DAILY 09/21/17 [History] Calcium Citrate/Vitamin D3 [[place] Calcium-Vit D 200-250] 1 tab PO DAILY [History] Dorzolamide HCl/Timolol Maleat [Dorzolamide-Timolol Eye Drops] 1 drop OP BID [History] Doxycycline [Vibramycin] 100 mg PO BID 09/21/17 [History] Ferrous Sulfate 325 mg PO BID 09/21/17 [History] Gabapentin [Neurontin] 200 mg PO BEDTIME 09/21/17 [History] Gentamicin [Gentamicin 0.1%] 1 applic TOP DAILY 09/21/17 [History] Lactobacillus Acidophilus [Acidophilus] 100 mg PO TIDMEALS 09/21/17 [History] Mirtazapine 15 mg PO BEDTIME 09/21/17 [History] Multivitamin with Minerals [Multiple Vitamin] 1 tab PO DAILY 09/21/17 [History] Naproxen Sodium 220 mg PO BID PRN 09/21/17 [History] Timolol Maleate [Timoptic 0.5% Ophth Soln] 1 drop OP BID 09/21/17 [History] atorvaSTATin [Lipitor] 40 mg PO DAILY 09/21/17 [History] glipiZIDE [Glipizide ER] 10 mg PO DAILY 09/21/17 [History] hydroCHLOROthiazide [Hydrochlorothiazide] 25 mg PO DAILY 09/21/17 [History] metFORMIN [Glucophage] 1 tab PO BID 09/21/17 [History] traMADol [Ultram] 50 mg PO Q4H PRN 09/21/17 [History] Past Medical History Other HEENT History: blind in R eye, diabetes, 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 Other Cardiovascular History: had a heart pause in between some beats, Musculoskeletal History: Reports: None Other Neuro History: bad balance for a long time at least 5 years- from 2014 Endocrine/Metabolic History: Reports: Diabetes, Type II Other Hematologic History: iron low years ago got an infusion- alergic reaction - Past Surgical History Other Musculoskeletal Surgeries/Procedures:: L shoulder surgery- cut off Social & Family History - Family History Family Medical History: Noncontributory - Caffeine Use Caffeine Use: Reports: Coffee H&P Review of Systems - Review of Systems: Review Of Systems: ROS reveals no pertinent complaints other than HPI. Exam - Exam Exam: See Below - Vital Signs Weight: 49.714 kg - Exam General: Alert, Oriented, Cooperative HEENT: PERRLA, Conjunctiva Clear, EACs Clear, EOMI Neck: Supple, Trachea Midline Lungs: Clear to Auscultation, Normal Respiratory Effort Cardiovascular: Regular Rate, Regular Rhythm GI/Abdominal Exam: Normal Bowel Sounds, Soft, Non-Tender, No Organomegaly, No Distention, No Abnormal Bruit, No Mass, Pelvis Stable Back Exam: Normal Inspection, Paraspinal Tenderness Extremities: No Pedal Edema, Other (left lower leg and foot wounds - healing - mepiliex has been placed prior to arrival, receding cellulitis areas marked; decreased capillary refill of mainly left big toe and toes) - Patient Data Result Diagrams: 09/21/17 16:38 09/21/17 16:38 - Problem List (1) Wound drainage SNOMED Code(s): 736600233, 513093604 ICD Code: T14.8XXA - OTHER INJURY OF UNSPECIFIED BODY REGION, INITIAL ENCOUNTER Status: Acute Priority: High Current Visit: Yes (2) Diabetes mellitus type 2 in nonobese SNOMED Code(s): 491392930 ICD Code: E11.9 - TYPE 2 DIABETES MELLITUS WITHOUT COMPLICATIONS Status: Acute Priority: High Current Visit: Yes (3) Hypothyroid SNOMED Code(s): 43873544 ICD Code: E03.9 - HYPOTHYROIDISM, UNSPECIFIED Status: Acute Priority: High Current Visit: Yes (4) Pain in left foot SNOMED Code(s): 42717464 ICD Code: M79.672 - PAIN IN LEFT FOOT Status: Acute Priority: High Current Visit: Yes Problem List Initiated/Reviewed/Updated: Yes Orders Last 24hrs: Active Orders 24 hr Category Date Time Status Admission Status [Patient Status] [ADT] Routine ADT 09/21/17 12:55 Active Ambulate [RC] PER UNIT ROUTINE Care 09/21/17 13:18 Active Blood Glucose Check, Bedside [RC] BIDAC Care 09/21/17 13:49 Active Blood Glucose Check, Bedside [RC] WITHMEALSANDBED Care 09/21/17 13:02 Inactive Oxygen Therapy [RC] PRN Care 09/21/17 13:02 Active Up to Chair [RC] ASDIRECTED Care 09/21/17 13:02 Active VTE/DVT Education [RC] Per Unit Routine Care 09/21/17 13:02 Active Vital Signs [RC] PER UNIT ROUTINE Care 09/21/17 13:02 Active Consistent Carbohydrate Diet [DIET] Diet 09/21/17 Dinner Ordered CULTURE MRSA SURVEY [RM] Routine Lab 09/21/17 13:36 Received Acetaminophen [Tylenol] Med 09/21/17 13:21 Active 650 mg PO Q4H PRN Acidophilus/Lactobac Spor [Acidolphilus Extra Strength] Med 09/21/17 18:00 Active 1 tab PO TIDMEALS Ascorbic Acid [Vitamin C] Med 09/22/17 08:00 Active 500 mg PO DAILY Aspirin Med 09/22/17 08:00 Active 81 mg PO DAILY Calcium Carbonate/Vitamin D3 [Caltrate 600+D 1500 MG- Med 09/22/17 08:00 Hold 400 Units] 1 tab PO DAILY Clopidogrel [Plavix] Med 09/22/17 08:00 Active 75 mg PO DAILY Dorzolamide/Timolol [Cosopt 2%-0.5% Ophth Soln] Med 09/21/17 20:00 Active 0 - 1 ml EYEBOTH BID Doxycycline [Vibramycin] Med 09/21/17 20:00 Active 100 mg PO BID Ferrous Sulfate Med 09/21/17 20:00 Hold 325 mg PO BID Gabapentin [Neurontin] Med 09/21/17 14:26 Active 100 mg PO BEDTIME PRN Latanoprost [Xalatan 0.005% Ophth Soln] Med 09/21/17 20:00 Active 0 - 1 ml EYEBOTH BEDTIME Levothyroxine Med 09/22/17 07:00 Active 75 mcg PO ACBREAKFAST Lisinopril [Prinivil] Med 09/22/17 08:00 Active 40 mg PO DAILY Melatonin Med 09/21/17 13:47 Active 3 mg PO BEDTIME PRN Metoprolol Tartrate [Lopressor] Med 09/21/17 20:00 Active 50 mg PO BID Mirtazapine [Remeron] Med 09/21/17 20:00 Active 15 mg PO BEDTIME Multivitamins w-Iron/Ca/FA/Min [Thera M Plus] Med 09/21/17 20:00 Active 1 tab PO BEDTIME Naproxen [Naprosyn] Med 09/21/17 14:28 Active 250 mg PO BID PRN Nitroglycerin [Nitrostat] Med 09/21/17 13:49 Active 0.4 mg SL ASDIRECTED PRN Non-Formulary Medication [NF Drug] Med 09/21/17 20:00 Active 1 each PO BID Omeprazole Med 09/22/17 08:00 Active 20 mg PO DAILY amLODIPine [Norvasc] Med 09/22/17 08:00 Active 10 mg PO DAILY atorvaSTATin [Lipitor] Med 09/22/17 08:00 Active 40 mg PO DAILY hydroCHLOROthiazide Med 09/22/17 08:00 Active 25 mg PO DAILY metFORMIN [Glucophage] Med 09/21/17 20:00 Active 1,000 mg PO BID traMADol [Ultram] Med 09/21/17 14:23 Active 50 mg PO Q4H PRN Resuscitation Status Routine Resus Stat 09/21/17 13:02 Ordered Medication Orders Acetaminophen (Tylenol) 650 mg PO Q4H PRN PRN Reason: MILD PAIN (1-3 PAIN SCALE) Amlodipine Besylate (Norvasc) 10 mg PO DAILY [facility] Ascorbic Acid (Vitamin C) 500 mg PO DAILY [facility] Aspirin (Aspirin) 81 mg PO DAILY [facility] Atorvastatin Calcium (Lipitor) 40 mg PO DAILY [facility] Calcium Carbonate (Caltrate 600+D 1500 Mg-400 Units) 1 tab PO DAILY [facility] Clopidogrel Bisulfate (Plavix) 75 mg PO DAILY [facility] Dorzolamide/Timolol (Cosopt 2%-0.5% Ophth Soln) 0 - 1 ml EYEBOTH BID [facility] Doxycycline Hyclate (Vibramycin) 100 mg PO BID [facility] Stop: 10/05/17 23:59 Ferrous Sulfate (Ferrous Sulfate) 325 mg PO BID [facility] Gabapentin (Neurontin) 100 mg PO BEDTIME PRN PRN Reason: NERVE PAIN Hydrochlorothiazide (Hydrochlorothiazide) 25 mg PO DAILY [facility] Lactobacillus Acidophilus (Acidolphilus Extra Strength) 1 tab PO TIDMEALS [facility] Latanoprost (Xalatan 0.005% Ophth Soln) 0 - 1 ml EYEBOTH BEDTIME [facility] Levothyroxine Sodium (Levothyroxine) 75 mcg PO ACBREAKFAST [facility] Lisinopril (Prinivil) 40 mg PO DAILY [facility] Melatonin (Melatonin) 3 mg PO BEDTIME PRN PRN Reason: INSOMNIA Metformin HCl (Glucophage) 1,000 mg PO BID [facility] Metoprolol Tartrate (Lopressor) 50 mg PO BID [facility] Mirtazapine (Remeron) 15 mg PO BEDTIME [facility] Multivitamins/Minerals (Thera M Plus) 1 tab PO BEDTIME [facility] Naproxen (Naprosyn) 250 mg PO BID PRN PRN Reason: MODERATE PAIN 4-6 PAIN SCALE Nitroglycerin (Nitrostat) 0.4 mg SL ASDIRECTED PRN PRN Reason: ANGINA Amoxicillin- Clavulanate Potassium 500-125mg Tablets 1 each PO BID [facility] Stop: 10/05/17 23:59 Omeprazole (Omeprazole) 20 mg PO DAILY [facility] Tramadol HCl (Ultram) 50 mg PO Q4H PRN PRN Reason: SEVERE PAIN 7-10 PAIN SCALE Last Admin: 09/21/17 14:43 Dose: 50 mg Assessment/Plan Comment:: Patient placed in swing bed for subacute rehabilitation of wounds for wound care , PT/OT for strengthening, and pain management and control. Diet as tolerated - Cardiac. Family present and agree with plan of care.
[2017-09-21] MEDS ORDERED: Tuberculin, PPD 5 Units/0.1 ML 1 ML MDV IDERM ONE (17:09)
[2017-09-21] MEDS ORDERED: Insulin Aspart 100 Units/ML 3 ML Pen SUBCUT SCH (18:00)
[2017-09-21] MEDS ORDERED: Lactobacillus Acidophilus/Lactobacillus Sporogenes (Probiotic) Tab PO SCH (18:00)
[2017-09-21] MEDS: Lactobacillus Acidophilus/Lactobacillus Sporogenes (Probiotic) Tab PO SCH (18:01)
[2017-09-21] MEDS ORDERED: Ferrous Sulfate 325 MG Tab PO SCH (20:00)
[2017-09-21] MEDS: metFORMIN 1,000 MG Tab PO SCH (20:19)
[2017-09-21] MEDS: Dorzolamide/Timolol 2%-0.5% Ophth Soln 10 ML Bottle EYEBOTH SCH (20:19)
[2017-09-21] MEDS: Metoprolol Tartrate 50 MG Tab PO SCH (20:20)
[2017-09-21] MEDS: Mirtazapine 15 MG Tab PO SCH (20:21)
[2017-09-21] MEDS: [UNRECOGNIZED DRUG - OTHER] PO SCH (20:21)
[2017-09-21] MEDS: Doxycycline 100 MG Cap PO SCH (20:22)
[2017-09-21] MEDS: Multivitamins with Iron/Calcium/Folic Acid/Minerals Tab PO SCH (20:22)
[2017-09-21] MEDS: Latanoprost 0.005% Ophth Soln 2.5 ML Bottle EYEBOTH SCH (20:31)
[2017-09-21] MEDS: Gabapentin 100 MG Cap PO PRN (22:55)
[2017-09-21] MEDS: Melatonin 3 MG Tab PO PRN (22:55)
[2017-09-22] MEDS: Naproxen 250 MG Tab PO PRN (05:48)
[2017-09-22] MEDS ORDERED: glipiZIDE 5 MG Tab.ER PO SCH (08:00)
[2017-09-22] MEDS: Aspirin 81 MG Tab.Chew PO SCH (08:26)
[2017-09-22] MEDS: Clopidogrel 75 MG Tab PO SCH (08:26)
[2017-09-22] MEDS: amLODIPine 10 MG Tab PO SCH (08:26)
[2017-09-22] MEDS: Omeprazole 20 MG Cap.CR PO SCH (08:26)
[2017-09-22] MEDS: Metoprolol Tartrate 50 MG Tab PO SCH ×2 (08:26→19:21)
[2017-09-22] MEDS: atorvaSTATin 40 MG Tab PO SCH (08:27)
[2017-09-22] MEDS: Hydrochlorothiazide 25 MG Tab PO SCH (08:27)
[2017-09-22] MEDS: Lisinopril 20 MG Tab PO SCH (08:27)
[2017-09-22] MEDS: Levothyroxine 75 MCG Tab PO SCH (08:27)
[2017-09-22] MEDS: Doxycycline 100 MG Cap PO SCH ×2 (08:27→20:00)
[2017-09-22] MEDS: metFORMIN 1,000 MG Tab PO SCH ×2 (08:27→19:21)
[2017-09-22] MEDS: Lactobacillus Acidophilus/Lactobacillus Sporogenes (Probiotic) Tab PO SCH ×3 (08:27→18:05)
[2017-09-22] MEDS: Ascorbic Acid 500 MG Tab PO SCH (08:27)
[2017-09-22] MEDS: Dorzolamide/Timolol 2%-0.5% Ophth Soln 10 ML Bottle EYEBOTH SCH ×2 (08:28→19:21)
[2017-09-22] MEDS: [UNRECOGNIZED DRUG - OTHER] PO SCH ×2 (08:28→19:21)
[2017-09-22] MEDS: Potassium Chloride 20 MEQ Tab.ER PO SCH (10:45)
[2017-09-22] MEDS: traMADol 50 MG Tab PO PRN ×3 (10:45→23:55)
[2017-09-22] MEDS: Latanoprost 0.005% Ophth Soln 2.5 ML Bottle EYEBOTH SCH (19:21)
[2017-09-22] MEDS: Multivitamins with Iron/Calcium/Folic Acid/Minerals Tab PO SCH (19:21)
[2017-09-22] MEDS: Mirtazapine 15 MG Tab PO SCH (19:21)
[2017-09-22] MEDS: Gabapentin 100 MG Cap PO PRN (20:00)
[2017-09-22] MEDS: Melatonin 3 MG Tab PO PRN (23:55)
[2017-09-23] MEDS ORDERED: oxyCODONE 5 MG Tab ONE (00:17)
[2017-09-23] MEDS: oxyCODONE 5 MG Tab PO PRN ×4 (05:20→20:08)
[2017-09-23] MEDS: Levothyroxine 75 MCG Tab PO SCH (06:53)
[2017-09-23] MEDS: amLODIPine 10 MG Tab PO SCH (07:58)
[2017-09-23] MEDS: Hydrochlorothiazide 25 MG Tab PO SCH (07:58)
[2017-09-23] MEDS: Omeprazole 20 MG Cap.CR PO SCH (07:58)
[2017-09-23] MEDS: Clopidogrel 75 MG Tab PO SCH (07:58)
[2017-09-23] MEDS: Metoprolol Tartrate 50 MG Tab PO SCH ×2 (07:59→20:07)
[2017-09-23] MEDS: Aspirin 81 MG Tab.Chew PO SCH (07:59)
[2017-09-23] MEDS: atorvaSTATin 40 MG Tab PO SCH (08:00)
[2017-09-23] MEDS: Doxycycline 100 MG Cap PO SCH ×2 (08:00→20:08)
[2017-09-23] MEDS: [UNRECOGNIZED DRUG - OTHER] PO SCH ×2 (08:01→20:07)
[2017-09-23] MEDS: Ascorbic Acid 500 MG Tab PO SCH (08:01)
[2017-09-23] MEDS: Lisinopril 20 MG Tab PO SCH (08:01)
[2017-09-23] MEDS: Dorzolamide/Timolol 2%-0.5% Ophth Soln 10 ML Bottle EYEBOTH SCH ×2 (08:01→20:07)
[2017-09-23] MEDS: Lactobacillus Acidophilus/Lactobacillus Sporogenes (Probiotic) Tab PO SCH ×3 (08:01→17:20)
[2017-09-23] MEDS: Potassium Chloride 20 MEQ Tab.ER PO SCH (08:01)
[2017-09-23] MEDS: metFORMIN 1,000 MG Tab PO SCH (08:33)
[2017-09-23] MEDS: Gabapentin 300 MG Cap PO SCH (11:55)
[2017-09-23] MEDS: Insulin Aspart 100 Units/ML 3 ML Pen SUBCUT SCH ×2 (11:57→17:00)
[2017-09-23] MEDS: Latanoprost 0.005% Ophth Soln 2.5 ML Bottle EYEBOTH SCH (20:06)
[2017-09-23] MEDS: Mirtazapine 15 MG Tab PO SCH (20:08)
[2017-09-24] MEDS: oxyCODONE 5 MG Tab PO PRN (04:50)
[2017-09-24] MEDS: atorvaSTATin 40 MG Tab PO SCH (08:24)
[2017-09-24] MEDS: Lisinopril 20 MG Tab PO SCH (08:25)
[2017-09-24] MEDS: Ascorbic Acid 500 MG Tab PO SCH (08:26)
[2017-09-24] MEDS: Metoprolol Tartrate 50 MG Tab PO SCH ×2 (08:26→20:32)
[2017-09-24] MEDS: Gabapentin 300 MG Cap PO SCH (08:27)
[2017-09-24] MEDS: Clopidogrel 75 MG Tab PO SCH (08:27)
[2017-09-24] MEDS: Lactobacillus Acidophilus/Lactobacillus Sporogenes (Probiotic) Tab PO SCH ×3 (08:27→17:20)
[2017-09-24] MEDS: Levothyroxine 75 MCG Tab PO SCH (08:27)
[2017-09-24] MEDS: Hydrochlorothiazide 25 MG Tab PO SCH (08:27)
[2017-09-24] MEDS: Doxycycline 100 MG Cap PO SCH ×2 (08:28→20:32)
[2017-09-24] MEDS: amLODIPine 10 MG Tab PO SCH (08:28)
[2017-09-24] MEDS: Aspirin 81 MG Tab.Chew PO SCH (08:28)
[2017-09-24] MEDS: Omeprazole 20 MG Cap.CR PO SCH (08:28)
[2017-09-24] MEDS: Potassium Chloride 20 MEQ Tab.ER PO SCH (08:28)
[2017-09-24] MEDS: Multivitamins with Iron/Calcium/Folic Acid/Minerals Tab PO SCH ×2 (08:29→10:13)
[2017-09-24] MEDS: Dorzolamide/Timolol 2%-0.5% Ophth Soln 10 ML Bottle EYEBOTH SCH ×2 (08:29→20:33)
[2017-09-24] MEDS: [UNRECOGNIZED DRUG - OTHER] PO SCH ×2 (08:29→20:32)
[2017-09-24] MEDS: Insulin Aspart 100 Units/ML 3 ML Pen SUBCUT SCH ×3 (09:10→17:19)
[2017-09-24] MEDS: Naproxen 250 MG Tab PO PRN (11:00)
[2017-09-24] MEDS: Acetaminophen 325 MG Tab PO PRN (17:01)
[2017-09-24] MEDS: Mirtazapine 15 MG Tab PO SCH (20:32)
[2017-09-24] MEDS: Latanoprost 0.005% Ophth Soln 2.5 ML Bottle EYEBOTH SCH (20:33)
[2017-09-25] MEDS: Clopidogrel 75 MG Tab PO SCH (07:04)
[2017-09-25] MEDS: Metoprolol Tartrate 50 MG Tab PO SCH ×2 (07:05→21:23)
[2017-09-25] MEDS: Lisinopril 20 MG Tab PO SCH (07:08)
[2017-09-25] MEDS: Hydrochlorothiazide 25 MG Tab PO SCH (07:09)
[2017-09-25] MEDS: Aspirin 81 MG Tab.Chew PO SCH (07:09)
[2017-09-25] MEDS: Dorzolamide/Timolol 2%-0.5% Ophth Soln 10 ML Bottle EYEBOTH SCH ×2 (07:09→21:26)
[2017-09-25] MEDS: Ascorbic Acid 500 MG Tab PO SCH (07:09)
[2017-09-25] MEDS: Levothyroxine 75 MCG Tab PO SCH (07:10)
[2017-09-25] MEDS: Lactobacillus Acidophilus/Lactobacillus Sporogenes (Probiotic) Tab PO SCH ×3 (07:10→19:23)
[2017-09-25] MEDS: amLODIPine 10 MG Tab PO SCH (07:12)
[2017-09-25] MEDS: atorvaSTATin 40 MG Tab PO SCH (07:12)
[2017-09-25] MEDS: Gabapentin 300 MG Cap PO SCH (07:12)
[2017-09-25] MEDS: [UNRECOGNIZED DRUG - OTHER] PO SCH ×2 (07:12→21:22)
[2017-09-25] MEDS: Potassium Chloride 20 MEQ Tab.ER PO SCH (07:12)
[2017-09-25] MEDS: Insulin Aspart 100 Units/ML 3 ML Pen SUBCUT SCH ×3 (07:13→19:19)
[2017-09-25] MEDS: Multivitamins with Iron/Calcium/Folic Acid/Minerals Tab PO SCH (07:14)
[2017-09-25] MEDS: Omeprazole 20 MG Cap.CR PO SCH (07:16)
[2017-09-25] MEDS: Doxycycline 100 MG Cap PO SCH ×2 (07:16→21:23)
[2017-09-25] MEDS: oxyCODONE 5 MG Tab PO PRN (16:20)
[2017-09-25] MEDS: Latanoprost 0.005% Ophth Soln 2.5 ML Bottle EYEBOTH SCH (21:22)
[2017-09-25] MEDS: Mirtazapine 15 MG Tab PO SCH (21:23)
[2017-09-26] MEDS: Gabapentin 300 MG Cap PO SCH (07:59)
[2017-09-26] MEDS: Ascorbic Acid 500 MG Tab PO SCH (08:00)
[2017-09-26] MEDS: atorvaSTATin 40 MG Tab PO SCH (08:00)
[2017-09-26] MEDS: Omeprazole 20 MG Cap.CR PO SCH (08:00)
[2017-09-26] MEDS: Clopidogrel 75 MG Tab PO SCH (08:00)
[2017-09-26] MEDS: amLODIPine 10 MG Tab PO SCH (08:00)
[2017-09-26] MEDS: Multivitamins with Iron/Calcium/Folic Acid/Minerals Tab PO SCH (08:00)
[2017-09-26] MEDS: Potassium Chloride 20 MEQ Tab.ER PO SCH (08:01)
[2017-09-26] MEDS: Levothyroxine 75 MCG Tab PO SCH (08:01)
[2017-09-26] MEDS: Lisinopril 20 MG Tab PO SCH (08:01)
[2017-09-26] MEDS: Lactobacillus Acidophilus/Lactobacillus Sporogenes (Probiotic) Tab PO SCH ×3 (08:01→17:56)
[2017-09-26] MEDS: Aspirin 81 MG Tab.Chew PO SCH (08:01)
[2017-09-26] MEDS: Metoprolol Tartrate 50 MG Tab PO SCH ×2 (08:02→19:56)
[2017-09-26] MEDS: Dorzolamide/Timolol 2%-0.5% Ophth Soln 10 ML Bottle EYEBOTH SCH ×2 (08:03→19:56)
[2017-09-26] MEDS: [UNRECOGNIZED DRUG - OTHER] PO SCH ×2 (08:03→19:56)
[2017-09-26] MEDS: Doxycycline 100 MG Cap PO SCH ×2 (08:04→19:58)
[2017-09-26] MEDS: Hydrochlorothiazide 25 MG Tab PO SCH (08:06)
[2017-09-26] MEDS: Insulin Aspart 100 Units/ML 3 ML Pen SUBCUT SCH ×3 (08:58→17:52)
[2017-09-26] MEDS: oxyCODONE 5 MG Tab PO PRN ×2 (09:49→21:06)
[2017-09-26] MEDS: Latanoprost 0.005% Ophth Soln 2.5 ML Bottle EYEBOTH SCH (19:54)
[2017-09-26] MEDS: Mirtazapine 15 MG Tab PO SCH (19:58)
[2017-09-26] MEDS: traMADol 50 MG Tab PO PRN (21:07)
[2017-09-27] MEDS: Clopidogrel 75 MG Tab PO SCH (08:52)
[2017-09-27] MEDS: amLODIPine 10 MG Tab PO SCH (08:53)
[2017-09-27] MEDS: Doxycycline 100 MG Cap PO SCH ×2 (08:53→22:04)
[2017-09-27] MEDS: Lactobacillus Acidophilus/Lactobacillus Sporogenes (Probiotic) Tab PO SCH ×3 (08:54→17:15)
[2017-09-27] MEDS: Levothyroxine 75 MCG Tab PO SCH (08:54)
[2017-09-27] MEDS: Metoprolol Tartrate 50 MG Tab PO SCH ×2 (08:54→22:04)
[2017-09-27] MEDS: Aspirin 81 MG Tab.Chew PO SCH (08:54)
[2017-09-27] MEDS: atorvaSTATin 40 MG Tab PO SCH (08:54)
[2017-09-27] MEDS: Hydrochlorothiazide 25 MG Tab PO SCH (08:55)
[2017-09-27] MEDS: Omeprazole 20 MG Cap.CR PO SCH (08:55)
[2017-09-27] MEDS: Potassium Chloride 20 MEQ Tab.ER PO SCH (08:55)
[2017-09-27] MEDS: Gabapentin 300 MG Cap PO SCH (08:55)
[2017-09-27] MEDS: Multivitamins with Iron/Calcium/Folic Acid/Minerals Tab PO SCH (08:56)
[2017-09-27] MEDS: Ascorbic Acid 500 MG Tab PO SCH (08:56)
[2017-09-27] MEDS: Lisinopril 20 MG Tab PO SCH (08:56)
[2017-09-27] MEDS: traMADol 50 MG Tab PO PRN ×2 (08:58→22:07)
[2017-09-27] MEDS: [UNRECOGNIZED DRUG - OTHER] PO SCH ×2 (08:59→22:07)
[2017-09-27] MEDS: Dorzolamide/Timolol 2%-0.5% Ophth Soln 10 ML Bottle EYEBOTH SCH ×2 (08:59→22:03)
[2017-09-27] MEDS: Insulin Aspart 100 Units/ML 3 ML Pen SUBCUT SCH ×3 (09:00→17:14)
[2017-09-27] MEDS ORDERED: glipiZIDE 5 MG Tab PO SCH (12:00)
[2017-09-27] MEDS: oxyCODONE 5 MG Tab PO PRN (14:02)
[2017-09-27] MEDS: Latanoprost 0.005% Ophth Soln 2.5 ML Bottle EYEBOTH SCH (22:03)
[2017-09-27] MEDS: Mirtazapine 15 MG Tab PO SCH (22:05)
[2017-09-27] MEDS: Acetaminophen 325 MG Tab PO PRN (22:06)
[2017-09-28] MEDS: Gabapentin 300 MG Cap PO SCH (07:29)
[2017-09-28] MEDS: Aspirin 81 MG Tab.Chew PO SCH (07:30)
[2017-09-28] MEDS: Multivitamins with Iron/Calcium/Folic Acid/Minerals Tab PO SCH (07:30)
[2017-09-28] MEDS: Lactobacillus Acidophilus/Lactobacillus Sporogenes (Probiotic) Tab PO SCH ×3 (07:30→19:54)
[2017-09-28] MEDS: Hydrochlorothiazide 25 MG Tab PO SCH (07:30)
[2017-09-28] MEDS: Omeprazole 20 MG Cap.CR PO SCH (07:30)
[2017-09-28] MEDS: Potassium Chloride 20 MEQ Tab.ER PO SCH (07:31)
[2017-09-28] MEDS: Levothyroxine 75 MCG Tab PO SCH (07:31)
[2017-09-28] MEDS: glipiZIDE 5 MG Tab PO SCH (07:31)
[2017-09-28] MEDS: Clopidogrel 75 MG Tab PO SCH (07:31)
[2017-09-28] MEDS: Ascorbic Acid 500 MG Tab PO SCH (07:31)
[2017-09-28] MEDS: atorvaSTATin 40 MG Tab PO SCH (07:31)
[2017-09-28] MEDS: Metoprolol Tartrate 50 MG Tab PO SCH ×2 (07:32→19:59)
[2017-09-28] MEDS: Lisinopril 20 MG Tab PO SCH (07:32)
[2017-09-28] MEDS: amLODIPine 10 MG Tab PO SCH (07:33)
[2017-09-28] MEDS: Doxycycline 100 MG Cap PO SCH ×2 (07:34→19:58)
[2017-09-28] MEDS: Dorzolamide/Timolol 2%-0.5% Ophth Soln 10 ML Bottle EYEBOTH SCH ×2 (07:41→19:58)
[2017-09-28] MEDS: [UNRECOGNIZED DRUG - OTHER] PO SCH ×2 (07:41→19:57)
[2017-09-28] MEDS: Insulin Aspart 100 Units/ML 3 ML Pen SUBCUT SCH (07:45)
--- NOTE | 2017-09-28 11:04 | PCM.PN ---
- General Info Date of Service: 09/28/17 Subjective Update: This is a pleasant 87yo F here for wound care and management as well as PT/OT therapy for weakness. She has been stable and denies any complaints at this time. Functional Status: Reports: Pain Controlled, Tolerating Diet, Ambulating - Review of Systems General: Reports: Weakness HEENT: Reports: No Symptoms Pulmonary: Reports: No Symptoms Cardiovascular: Reports: No Symptoms Gastrointestinal: Reports: No Symptoms Genitourinary: Reports: No Symptoms Musculoskeletal: Reports: Leg Pain Skin: Reports: Other (left lower leg wounds and tenderness) Neurological: Reports: Difficulty Walking, Weakness Psychiatric: Reports: No Symptoms - Patient Data Vitals - Most Recent: Last Vital Signs Temp 36.6 C 09/28/17 10:00 Pulse 68 09/28/17 10:00 Resp 24 H 09/28/17 10:00 BP 143/57 H 09/28/17 10:00 Pulse Ox 100 09/28/17 10:00 Weight - Most Recent: 46.04 kg Lab Results Last 24 Hours: Laboratory Results - last 24 hr 09/27/17 09/27/17 09/28/17 Range/Units 10:28 15:49 07:40 WBC 8.5 (4.0-11.0) K/uL RBC 2.78 L (3.80-5.80) M/uL Hgb 8.5 L (11.5-16.5) g/dL Hct 26.4 L (37.0-47.0) % MCV 95 (76-96) fL MCH 30.6 (27.0-32.0) pg MCHC 32.2 (31.0-35.0) g/dL RDW 13.8 (11.0-16.0) % Plt Count 451 (150-500) K/uL MPV 8.8 (6.0-10.0) fL Neut % (Auto) 65.7 (45.0-70.0) % Lymph % (Auto) 17.0 L (20.0-40.0) % Cache % (Auto) 12.5 H (3.0-10.0) % Eos % (Auto) 1.9 (1.0-5.0) % Baso % (Auto) 2.9 H (0.0-0.5) % Neut # (Auto) 5.61 (2.00-7.50) K/uL Lymph # (Auto) 1.45 L (1.50-4.00) K/uL [place] # (Auto) 1.07 H (0.20-0.80) K/uL Eos # (Auto) 0.16 (0.04-0.40) K/uL Baso # (Auto) 0.25 H (0.02-0.10) K/uL Sodium (136-145) mmol/L Potassium (3.5-5.1) mmol/L Chloride (98-107) mmol/L Carbon Dioxide (21.0-32.0) mmol/L Anion Gap (5.0-15.0) mmol/L BUN (8-26) mg/dL Creatinine (0.55-1.02) mg/dL Est Cr Clr Drug Dosing mL/min Estimated GFR (MDRD) (>60) MLS/MIN BUN/Creatinine Ratio (6-25) Glucose (74-100) mg/dL POC Glucose 254 H 63 L (74-110) mg/dL Calcium (8.5-10.1) mg/dL Total Bilirubin (0.0-1.0) mg/dL AST (15-37) U/L ALT (12-78) U/L Alkaline Phosphatase (46-116) U/L Total Protein (6.4-8.2) g/dL Albumin (3.4-5.0) g/dL Globulin (2.2-4.2) g/dL Albumin/Globulin Ratio (0.8-2.0) 09/28/17 Range/Units 07:40 WBC (4.0-11.0) K/uL RBC (3.80-5.80) M/uL Hgb (11.5-16.5) g/dL Hct (37.0-47.0) % MCV (76-96) fL MCH (27.0-32.0) pg MCHC (31.0-35.0) g/dL RDW (11.0-16.0) % Plt Count (150-500) K/uL MPV (6.0-10.0) fL Neut % (Auto) (45.0-70.0) % Lymph % (Auto) (20.0-40.0) % Cache % (Auto) (3.0-10.0) % Eos % (Auto) (1.0-5.0) % Baso % (Auto) (0.0-0.5) % Neut # (Auto) (2.00-7.50) K/uL Lymph # (Auto) (1.50-4.00) K/uL Cache # (Auto) (0.20-0.80) K/uL Eos # (Auto) (0.04-0.40) K/uL Baso # (Auto) (0.02-0.10) K/uL Sodium 136 (136-145) mmol/L Potassium 4.2 (3.5-5.1) mmol/L Chloride 102 (98-107) mmol/L Carbon Dioxide 24.6 (21.0-32.0) mmol/L Anion Gap 13.6 (5.0-15.0) mmol/L BUN 24 (8-26) mg/dL Creatinine 1.56 H (0.55-1.02) mg/dL Est Cr Clr Drug Dosing 17.77 mL/min Estimated GFR (MDRD) 31 L (>60) MLS/MIN BUN/Creatinine Ratio 15.4 (6-25) Glucose 189 H (74-100) mg/dL POC Glucose (74-110) mg/dL Calcium 8.7 (8.5-10.1) mg/dL Total Bilirubin 0.4 (0.0-1.0) mg/dL AST 24 (15-37) U/L ALT 16 (12-78) U/L Alkaline Phosphatase 165 H (46-116) U/L Total Protein 6.9 (6.4-8.2) g/dL Albumin 2.1 L (3.4-5.0) g/dL Globulin 4.8 H (2.2-4.2) g/dL Albumin/Globulin Ratio 0.4 L (0.8-2.0) Med Orders - Current: Current Medications Acetaminophen (Tylenol) 650 mg PO Q4H PRN PRN Reason: MILD PAIN (1-3 PAIN SCALE) Last Admin: 09/27/17 22:06 Dose: 650 mg Amlodipine Besylate (Norvasc) 10 mg PO DAILY [facility] Last Admin: 09/28/17 07:33 Dose: 10 mg Ascorbic Acid (Vitamin C) 500 mg PO DAILY [facility] Last Admin: 09/28/17 07:31 Dose: 500 mg Aspirin (Aspirin) 81 mg PO DAILY [facility] Last Admin: 09/28/17 07:30 Dose: 81 mg Atorvastatin Calcium (Lipitor) 40 mg PO DAILY [facility] Last Admin: 09/28/17 07:31 Dose: 40 mg Calcium Carbonate (Caltrate 600+D 1500 Mg-400 Units) 1 tab PO DAILY [facility] Clopidogrel Bisulfate (Plavix) 75 mg PO DAILY [facility] Last Admin: 09/28/17 07:31 Dose: 75 mg Dorzolamide/Timolol (Cosopt 2%-0.5% Ophth Soln) 0 - 1 ml EYEBOTH BID [facility] Last Admin: 09/28/17 07:41 Dose: 1 drop Doxycycline Hyclate (Vibramycin) 100 mg PO BID [facility] Stop: 10/05/17 23:59 Last Admin: 09/28/17 07:34 Dose: 100 mg Ferrous Sulfate (Ferrous Sulfate) 325 mg PO BID [facility] Gabapentin (Neurontin) 300 mg PO DAILY [facility] Last Admin: 09/28/17 07:29 Dose: 300 mg Glipizide (Glucotrol) 5 mg PO DAILY [facility] Last Admin: 09/28/17 07:31 Dose: 5 mg Hydrochlorothiazide (Hydrochlorothiazide) 25 mg PO DAILY [facility] Last Admin: 09/28/17 07:30 Dose: 25 mg Insulin Aspart (Novolog) 0 unit SUBCUT TIDMEALS [facility]; Protocol Last Admin: 09/28/17 07:45 Dose: Not Given Lactobacillus Acidophilus (Acidolphilus Extra Strength) 1 tab PO TIDMEALS [facility] Last Admin: 09/28/17 07:30 Dose: 1 tab Latanoprost (Xalatan 0.005% Ophth Soln) 0 - 1 ml EYEBOTH BEDTIME [facility] Last Admin: 09/27/17 22:03 Dose: 1 drop Levothyroxine Sodium (Levothyroxine) 75 mcg PO ACBREAKFAST [facility] Last Admin: 09/28/17 07:31 Dose: 75 mcg Lisinopril (Prinivil) 40 mg PO DAILY [facility] Last Admin: 09/28/17 07:32 Dose: 40 mg Melatonin (Melatonin) 3 mg PO BEDTIME PRN PRN Reason: INSOMNIA Last Admin: 09/22/17 23:55 Dose: 3 mg Metoprolol Tartrate (Lopressor) 50 mg PO BID [facility] Last Admin: 09/28/17 07:32 Dose: 50 mg Mirtazapine (Remeron) 15 mg PO BEDTIME [facility] Last Admin: 09/27/17 22:05 Dose: 15 mg Multivitamins/Minerals (Thera M Plus) 1 tab PO DAILY [facility] Last Admin: 09/28/17 07:30 Dose: 1 tab Naproxen (Naprosyn) 250 mg PO BID PRN PRN Reason: MODERATE PAIN 4-6 PAIN SCALE Last Admin: 09/24/17 11:00 Dose: 250 mg Nitroglycerin (Nitrostat) 0.4 mg SL ASDIRECTED PRN PRN Reason: ANGINA Amoxicillin- Clavulanate Potassium 500-125mg Tablets 1 each PO BID [facility] Stop: 10/05/17 23:59 Last Admin: 09/28/17 07:41 Dose: 1 each Omeprazole (Omeprazole) 20 mg PO DAILY [facility] Last Admin: 09/28/17 07:30 Dose: 20 mg Oxycodone HCl (Oxycodone) 5 mg PO Q4H PRN PRN Reason: Pain Last Admin: 09/27/17 14:02 Dose: 5 mg Potassium Chloride (Klor-Con M20) 20 meq PO DAILY [facility] Last Admin: 09/28/17 07:31 Dose: 20 meq Tramadol HCl (Ultram) 50 mg PO Q4H PRN PRN Reason: SEVERE PAIN 7-10 PAIN SCALE Last Admin: 09/27/17 22:07 Dose: 50 mg Discontinued Medications Gabapentin (Neurontin) 100 mg PO BEDTIME PRN PRN Reason: NERVE PAIN Last Admin: 09/22/17 20:00 Dose: 100 mg Glipizide (Glucotrol) 5 mg PO DAILY@1200 [facility] Stop: 09/27/17 13:00 Last Admin: 09/27/17 11:45 Dose: 5 mg Metformin HCl (Glucophage) 1,000 mg PO BID [facility] Last Admin: 09/23/17 08:33 Dose: Not Given Multivitamins/Minerals (Thera M Plus) 1 tab PO BEDTIME [facility] Last Admin: 09/24/17 10:13 Dose: Not Given Oxycodone HCl (Oxycodone) Confirm Administered Dose 5 mg .ROUTE .[facility]-MED ONE Stop: 09/23/17 00:18 Last Admin: 09/23/17 00:24 Dose: 5 mg Tuberculin PPD (Aplisol) 5 unit IDERM ONETIME ONE Stop: 09/21/17 17:10 Last Admin: 09/22/17 10:52 Dose: 5 unit - Exam General: Alert, Oriented HEENT: Pupils Equal, Pupils Reactive, EOMI Neck: Supple Lungs: Clear to Auscultation, Normal Respiratory Effort Cardiovascular: Regular Rate, Regular Rhythm GI/Abdominal Exam: Normal Bowel Sounds Extremities: Leg Pain Peripheral Pulses: 1+: Dorsalis Pedis (L), Dorsalis Pedis (R) Skin: Warm, Dry, Other (wounds of left lower leg) Neurological: No New Focal Deficit Psy/Mental Status: Alert - Problem List & Annotations (1) Wound drainage SNOMED Code(s): 202086857, 091490734 Code(s): T14.8XXA - OTHER INJURY OF UNSPECIFIED BODY REGION, INITIAL ENCOUNTER Status: Acute Priority: High Current Visit: Yes (2) Diabetes mellitus type 2 in nonobese SNOMED Code(s): 008871225 Code(s): E11.9 - TYPE 2 DIABETES MELLITUS WITHOUT COMPLICATIONS Status: Acute Priority: High Current Visit: Yes (3) Hypothyroid SNOMED Code(s): 54438935 Code(s): E03.9 - HYPOTHYROIDISM, UNSPECIFIED Status: Acute Priority: High Current Visit: Yes (4) Pain in left foot SNOMED Code(s): 87005258 Code(s): M79.672 - PAIN IN LEFT FOOT Status: Acute Priority: High Current Visit: Yes - Problem List Review Problem List Initiated/Reviewed/Updated: Yes - My Orders Last 24 Hours: My Active Orders 09/28/17 08:00 glipiZIDE [Glucotrol] 5 mg PO DAILY - Plan Plan:: Patient placed in swing bed for subacute rehabilitation of wounds for wound care , PT/OT for strengthening, and pain management and control. Diet as tolerated - Cardiac. Family present and agree with plan of care. 09/28/17 Continue wound care and management with close monitoring. Continue PT/OT for ambulation. Pain control monitoring and management.
[2017-09-28] MEDS: traMADol 50 MG Tab PO PRN (11:37)
[2017-09-28] MEDS: oxyCODONE 5 MG Tab PO PRN ×2 (13:54→19:55)
[2017-09-28] MEDS: Mirtazapine 15 MG Tab PO SCH (19:57)
[2017-09-28] MEDS: Latanoprost 0.005% Ophth Soln 2.5 ML Bottle EYEBOTH SCH (19:58)
[2017-09-29] MEDS: Acetaminophen 325 MG Tab PO PRN ×2 (06:00→19:42)
[2017-09-29] MEDS: Levothyroxine 75 MCG Tab PO SCH (06:00)
[2017-09-29] MEDS: oxyCODONE 5 MG Tab PO PRN ×2 (06:02→23:03)
[2017-09-29] MEDS: Omeprazole 20 MG Cap.CR PO SCH (09:15)
[2017-09-29] MEDS: Gabapentin 300 MG Cap PO SCH (09:15)
[2017-09-29] MEDS: atorvaSTATin 40 MG Tab PO SCH (09:16)
[2017-09-29] MEDS: Lactobacillus Acidophilus/Lactobacillus Sporogenes (Probiotic) Tab PO SCH ×3 (09:16→17:51)
[2017-09-29] MEDS: Aspirin 81 MG Tab.Chew PO SCH (09:16)
[2017-09-29] MEDS: Potassium Chloride 20 MEQ Tab.ER PO SCH (09:17)
[2017-09-29] MEDS: Ascorbic Acid 500 MG Tab PO SCH (09:18)
[2017-09-29] MEDS: Clopidogrel 75 MG Tab PO SCH (09:18)
[2017-09-29] MEDS: Multivitamins with Iron/Calcium/Folic Acid/Minerals Tab PO SCH (09:18)
[2017-09-29] MEDS: Doxycycline 100 MG Cap PO SCH ×2 (09:18→19:41)
[2017-09-29] MEDS: Metoprolol Tartrate 50 MG Tab PO SCH ×2 (09:19→19:41)
[2017-09-29] MEDS: amLODIPine 10 MG Tab PO SCH (09:20)
[2017-09-29] MEDS: glipiZIDE 5 MG Tab PO SCH (09:20)
[2017-09-29] MEDS: Hydrochlorothiazide 25 MG Tab PO SCH (09:20)
[2017-09-29] MEDS: Lisinopril 20 MG Tab PO SCH (09:21)
[2017-09-29] MEDS: [UNRECOGNIZED DRUG - OTHER] PO SCH ×2 (09:22→20:03)
[2017-09-29] MEDS: Dorzolamide/Timolol 2%-0.5% Ophth Soln 10 ML Bottle EYEBOTH SCH ×2 (09:23→19:43)
[2017-09-29] MEDS: traMADol 50 MG Tab PO PRN (18:23)
[2017-09-29] MEDS: Mirtazapine 15 MG Tab PO SCH (19:40)
[2017-09-29] MEDS: Latanoprost 0.005% Ophth Soln 2.5 ML Bottle EYEBOTH SCH (19:43)
[2017-09-29] MEDS: Amoxicillin/Clavulanate K 875-125 MG Tab PO SCH (21:46)
[2017-09-29] MEDS ORDERED: oxyCODONE 5 MG Tab ONE (23:07)
[2017-09-30] MEDS: Levothyroxine 75 MCG Tab PO SCH (07:50)
[2017-09-30] MEDS: Lactobacillus Acidophilus/Lactobacillus Sporogenes (Probiotic) Tab PO SCH ×3 (07:51→17:35)
[2017-09-30] MEDS: Aspirin 81 MG Tab.Chew PO SCH (07:51)
[2017-09-30] MEDS: Amoxicillin/Clavulanate K 875-125 MG Tab PO SCH ×2 (07:52→19:50)
[2017-09-30] MEDS: Hydrochlorothiazide 25 MG Tab PO SCH (07:52)
[2017-09-30] MEDS: glipiZIDE 5 MG Tab PO SCH (07:52)
[2017-09-30] MEDS: Potassium Chloride 20 MEQ Tab.ER PO SCH (07:53)
[2017-09-30] MEDS: Metoprolol Tartrate 50 MG Tab PO SCH ×2 (07:54→19:50)
[2017-09-30] MEDS: atorvaSTATin 40 MG Tab PO SCH (07:54)
[2017-09-30] MEDS: amLODIPine 10 MG Tab PO SCH (07:55)
[2017-09-30] MEDS: Gabapentin 300 MG Cap PO SCH (07:55)
[2017-09-30] MEDS: Omeprazole 20 MG Cap.CR PO SCH (07:56)
[2017-09-30] MEDS: Clopidogrel 75 MG Tab PO SCH (07:56)
[2017-09-30] MEDS: Lisinopril 20 MG Tab PO SCH (07:57)
[2017-09-30] MEDS: Multivitamins with Iron/Calcium/Folic Acid/Minerals Tab PO SCH (07:57)
[2017-09-30] MEDS: Doxycycline 100 MG Cap PO SCH ×2 (07:58→19:51)
[2017-09-30] MEDS: Ascorbic Acid 500 MG Tab PO SCH (07:58)
[2017-09-30] MEDS: Dorzolamide/Timolol 2%-0.5% Ophth Soln 10 ML Bottle EYEBOTH SCH ×2 (07:59→19:51)
[2017-09-30] MEDS: oxyCODONE 5 MG Tab PO PRN (19:50)
[2017-09-30] MEDS: Latanoprost 0.005% Ophth Soln 2.5 ML Bottle EYEBOTH SCH (19:51)
[2017-09-30] MEDS: Mirtazapine 15 MG Tab PO SCH (19:51)
[2017-10-01] MEDS: traMADol 50 MG Tab PO PRN (05:27)
[2017-10-01] MEDS: Levothyroxine 75 MCG Tab PO SCH ×2 (05:28→06:47)
[2017-10-01] MEDS ORDERED: Lactobacillus Acidophilus/Lactobacillus Sporogenes (Probiotic) Tab ONE (11:02)
[2017-10-01] MEDS: Aspirin 81 MG Tab.Chew PO SCH (11:27)
[2017-10-01] MEDS: Lactobacillus Acidophilus/Lactobacillus Sporogenes (Probiotic) Tab PO SCH ×3 (11:27→17:47)
[2017-10-01] MEDS: glipiZIDE 5 MG Tab PO SCH (11:28)
[2017-10-01] MEDS: Hydrochlorothiazide 25 MG Tab PO SCH (11:28)
[2017-10-01] MEDS: Amoxicillin/Clavulanate K 875-125 MG Tab PO SCH (11:28)
[2017-10-01] MEDS: atorvaSTATin 40 MG Tab PO SCH (11:29)
[2017-10-01] MEDS: Potassium Chloride 20 MEQ Tab.ER PO SCH (11:29)
[2017-10-01] MEDS: Gabapentin 300 MG Cap PO SCH (11:29)
[2017-10-01] MEDS: amLODIPine 10 MG Tab PO SCH (11:29)
[2017-10-01] MEDS: Metoprolol Tartrate 50 MG Tab PO SCH ×2 (11:29→19:43)
[2017-10-01] MEDS: Ascorbic Acid 500 MG Tab PO SCH (11:30)
[2017-10-01] MEDS: Doxycycline 100 MG Cap PO SCH ×2 (11:30→19:44)
[2017-10-01] MEDS: Omeprazole 20 MG Cap.CR PO SCH (11:30)
[2017-10-01] MEDS: Clopidogrel 75 MG Tab PO SCH (11:30)
[2017-10-01] MEDS: Multivitamins with Iron/Calcium/Folic Acid/Minerals Tab PO SCH (11:30)
[2017-10-01] MEDS: Lisinopril 20 MG Tab PO SCH (11:30)
[2017-10-01] MEDS: Dorzolamide/Timolol 2%-0.5% Ophth Soln 10 ML Bottle EYEBOTH SCH ×2 (11:32→19:42)
[2017-10-01] MEDS: oxyCODONE 5 MG Tab PO PRN ×2 (12:45→21:00)
[2017-10-01] MEDS: [UNRECOGNIZED DRUG - OTHER] PO SCH (19:44)
[2017-10-01] MEDS: Mirtazapine 15 MG Tab PO SCH (19:44)
[2017-10-01] MEDS: Latanoprost 0.005% Ophth Soln 2.5 ML Bottle EYEBOTH SCH (19:45)
[2017-10-01] MEDS: Acetaminophen 325 MG Tab PO PRN (21:00)
[2017-10-02] MEDS: Lactobacillus Acidophilus/Lactobacillus Sporogenes (Probiotic) Tab PO SCH ×3 (08:45→17:52)
[2017-10-02] MEDS: Clopidogrel 75 MG Tab PO SCH (08:45)
[2017-10-02] MEDS: Metoprolol Tartrate 50 MG Tab PO SCH ×2 (08:45→19:15)
[2017-10-02] MEDS: Omeprazole 20 MG Cap.CR PO SCH (08:45)
[2017-10-02] MEDS: amLODIPine 10 MG Tab PO SCH (08:46)
[2017-10-02] MEDS: Potassium Chloride 20 MEQ Tab.ER PO SCH (08:46)
[2017-10-02] MEDS: Hydrochlorothiazide 25 MG Tab PO SCH (08:46)
[2017-10-02] MEDS: Aspirin 81 MG Tab.Chew PO SCH (08:47)
[2017-10-02] MEDS: Ascorbic Acid 500 MG Tab PO SCH (08:47)
[2017-10-02] MEDS: Multivitamins with Iron/Calcium/Folic Acid/Minerals Tab PO SCH (08:47)
[2017-10-02] MEDS: Dorzolamide/Timolol 2%-0.5% Ophth Soln 10 ML Bottle EYEBOTH SCH ×2 (08:48→19:21)
[2017-10-02] MEDS: Levothyroxine 75 MCG Tab PO SCH (08:48)
[2017-10-02] MEDS: glipiZIDE 5 MG Tab PO SCH (08:49)
[2017-10-02] MEDS: Lisinopril 20 MG Tab PO SCH (08:49)
[2017-10-02] MEDS: [UNRECOGNIZED DRUG - OTHER] PO SCH ×2 (08:50→19:20)
[2017-10-02] MEDS: atorvaSTATin 40 MG Tab PO SCH (08:50)
[2017-10-02] MEDS: Gabapentin 300 MG Cap PO SCH (08:50)
[2017-10-02] MEDS: Doxycycline 100 MG Cap PO SCH ×2 (08:50→19:21)
[2017-10-02] MEDS ORDERED: Calcium Carbonate 500 MG Tab.Chew ONE (09:50)
[2017-10-02] MEDS: oxyCODONE 5 MG Tab PO PRN ×2 (10:07→19:15)
[2017-10-02] MEDS: Acetaminophen 325 MG Tab PO PRN (19:14)
[2017-10-02] MEDS: Mirtazapine 15 MG Tab PO SCH (19:21)
[2017-10-02] MEDS: Latanoprost 0.005% Ophth Soln 2.5 ML Bottle EYEBOTH SCH (19:21)
[2017-10-03] MEDS: Levothyroxine 75 MCG Tab PO SCH (06:40)
[2017-10-03] MEDS: Acetaminophen 325 MG Tab PO PRN ×2 (06:40→19:29)
[2017-10-03] MEDS: oxyCODONE 5 MG Tab PO PRN ×2 (06:41→12:35)
[2017-10-03] MEDS: Omeprazole 20 MG Cap.CR PO SCH (08:18)
[2017-10-03] MEDS: Gabapentin 300 MG Cap PO SCH (08:18)
[2017-10-03] MEDS: Clopidogrel 75 MG Tab PO SCH (08:18)
[2017-10-03] MEDS: glipiZIDE 5 MG Tab PO SCH ×2 (08:19→18:12)
[2017-10-03] MEDS: Multivitamins with Iron/Calcium/Folic Acid/Minerals Tab PO SCH (08:19)
[2017-10-03] MEDS: Hydrochlorothiazide 25 MG Tab PO SCH (08:20)
[2017-10-03] MEDS: Lactobacillus Acidophilus/Lactobacillus Sporogenes (Probiotic) Tab PO SCH ×3 (08:20→18:11)
[2017-10-03] MEDS: amLODIPine 10 MG Tab PO SCH (08:20)
[2017-10-03] MEDS: Ascorbic Acid 500 MG Tab PO SCH (08:20)
[2017-10-03] MEDS: Potassium Chloride 20 MEQ Tab.ER PO SCH (08:20)
[2017-10-03] MEDS: [UNRECOGNIZED DRUG - OTHER] PO SCH ×2 (08:21→19:31)
[2017-10-03] MEDS: Metoprolol Tartrate 50 MG Tab PO SCH ×2 (08:21→19:30)
[2017-10-03] MEDS: Aspirin 81 MG Tab.Chew PO SCH (08:21)
[2017-10-03] MEDS: atorvaSTATin 40 MG Tab PO SCH (08:21)
[2017-10-03] MEDS: Dorzolamide/Timolol 2%-0.5% Ophth Soln 10 ML Bottle EYEBOTH SCH ×2 (08:22→19:31)
[2017-10-03] MEDS: Doxycycline 100 MG Cap PO SCH ×2 (08:22→19:30)
[2017-10-03] MEDS: Lisinopril 20 MG Tab PO SCH (08:24)
[2017-10-03] MEDS ORDERED: Lisinopril 20 MG Tab ONE (08:24)
[2017-10-03] MEDS: traMADol 50 MG Tab PO PRN ×2 (08:46→18:12)
[2017-10-03] MEDS: Ferrous Sulfate 325 MG Tab PO SCH (18:12)
[2017-10-03] MEDS: Mirtazapine 15 MG Tab PO SCH (19:30)
[2017-10-03] MEDS: Latanoprost 0.005% Ophth Soln 2.5 ML Bottle EYEBOTH SCH (19:31)
[2017-10-04] MEDS: Acetaminophen 325 MG Tab PO PRN (04:50)
[2017-10-04] MEDS: oxyCODONE 5 MG Tab PO PRN ×2 (04:51→14:07)
[2017-10-04] MEDS: Megestrol Susp 40 MG/ML ML (240 ML Bottle) PO SCH ×2 (04:59→07:13)
[2017-10-04] MEDS: Levothyroxine 75 MCG Tab PO SCH ×2 (04:59→07:13)
[2017-10-04] MEDS: Lactobacillus Acidophilus/Lactobacillus Sporogenes (Probiotic) Tab PO SCH ×3 (07:26→17:24)
[2017-10-04] MEDS: Aspirin 81 MG Tab.Chew PO SCH (07:27)
[2017-10-04] MEDS: Ferrous Sulfate 325 MG Tab PO SCH ×2 (07:27→17:24)
[2017-10-04] MEDS: Calcium Carbonate/Vitamin D3 1500 MG-400 Units Tab PO SCH (07:27)
[2017-10-04] MEDS: Dorzolamide/Timolol 2%-0.5% Ophth Soln 10 ML Bottle EYEBOTH SCH ×2 (07:27→20:17)
[2017-10-04] MEDS: Metoprolol Tartrate 50 MG Tab PO SCH ×2 (07:27→20:11)
[2017-10-04] MEDS: atorvaSTATin 40 MG Tab PO SCH (07:27)
[2017-10-04] MEDS: Potassium Chloride 20 MEQ Tab.ER PO SCH (07:27)
[2017-10-04] MEDS: Hydrochlorothiazide 25 MG Tab PO SCH (07:27)
[2017-10-04] MEDS: glipiZIDE 5 MG Tab PO SCH ×2 (07:27→17:28)
[2017-10-04] MEDS: Lisinopril 20 MG Tab PO SCH (07:28)
[2017-10-04] MEDS: Gabapentin 300 MG Cap PO SCH (07:28)
[2017-10-04] MEDS: Doxycycline 100 MG Cap PO SCH ×2 (07:28→20:11)
[2017-10-04] MEDS: Clopidogrel 75 MG Tab PO SCH (07:28)
[2017-10-04] MEDS: Ascorbic Acid 500 MG Tab PO SCH (07:28)
[2017-10-04] MEDS: [UNRECOGNIZED DRUG - OTHER] PO SCH ×2 (07:28→20:21)
[2017-10-04] MEDS: Omeprazole 20 MG Cap.CR PO SCH (07:28)
[2017-10-04] MEDS: amLODIPine 10 MG Tab PO SCH (07:28)
[2017-10-04] MEDS: Multivitamins with Iron/Calcium/Folic Acid/Minerals Tab PO SCH (07:28)
[2017-10-04] MEDS: traMADol 50 MG Tab PO PRN (11:20)
[2017-10-04] MEDS: Naproxen 250 MG Tab PO PRN (17:24)
[2017-10-04] MEDS: Mirtazapine 15 MG Tab PO SCH (20:11)
[2017-10-04] MEDS: Latanoprost 0.005% Ophth Soln 2.5 ML Bottle EYEBOTH SCH (20:17)
[2017-10-05] MEDS: Megestrol Susp 40 MG/ML ML (240 ML Bottle) PO SCH (07:54)
[2017-10-05] MEDS: Metoprolol Tartrate 50 MG Tab PO SCH ×2 (07:55→20:01)
[2017-10-05] MEDS: Omeprazole 20 MG Cap.CR PO SCH (07:55)
[2017-10-05] MEDS: Aspirin 81 MG Tab.Chew PO SCH (07:55)
[2017-10-05] MEDS: Gabapentin 300 MG Cap PO SCH (07:55)
[2017-10-05] MEDS: Ferrous Sulfate 325 MG Tab PO SCH ×2 (07:56→17:05)
[2017-10-05] MEDS: Clopidogrel 75 MG Tab PO SCH (07:56)
[2017-10-05] MEDS: [UNRECOGNIZED DRUG - OTHER] PO SCH ×2 (07:56→20:01)
[2017-10-05] MEDS: amLODIPine 10 MG Tab PO SCH (07:56)
[2017-10-05] MEDS: Lactobacillus Acidophilus/Lactobacillus Sporogenes (Probiotic) Tab PO SCH ×3 (07:56→17:05)
[2017-10-05] MEDS: Calcium Carbonate/Vitamin D3 1500 MG-400 Units Tab PO SCH (07:56)
[2017-10-05] MEDS: Potassium Chloride 20 MEQ Tab.ER PO SCH (07:56)
[2017-10-05] MEDS: Doxycycline 100 MG Cap PO SCH ×2 (07:56→20:01)
[2017-10-05] MEDS: Hydrochlorothiazide 25 MG Tab PO SCH (07:56)
[2017-10-05] MEDS: glipiZIDE 5 MG Tab PO SCH ×2 (07:57→17:05)
[2017-10-05] MEDS: Levothyroxine 75 MCG Tab PO SCH (07:57)
[2017-10-05] MEDS: atorvaSTATin 40 MG Tab PO SCH (07:57)
[2017-10-05] MEDS: Multivitamins with Iron/Calcium/Folic Acid/Minerals Tab PO SCH (07:57)
[2017-10-05] MEDS: Ascorbic Acid 500 MG Tab PO SCH (07:57)
[2017-10-05] MEDS: Lisinopril 20 MG Tab PO SCH (07:57)
[2017-10-05] MEDS: Dorzolamide/Timolol 2%-0.5% Ophth Soln 10 ML Bottle EYEBOTH SCH ×2 (07:58→20:02)
[2017-10-05] MEDS: traMADol 50 MG Tab PO PRN ×2 (11:24→18:28)
[2017-10-05] MEDS: Latanoprost 0.005% Ophth Soln 2.5 ML Bottle EYEBOTH SCH (20:02)
[2017-10-05] MEDS: Mirtazapine 15 MG Tab PO SCH (20:02)
[2017-10-06] MEDS: Megestrol Susp 40 MG/ML ML (240 ML Bottle) PO SCH (08:45)
[2017-10-06] MEDS: Calcium Carbonate/Vitamin D3 1500 MG-400 Units Tab PO SCH (08:46)
[2017-10-06] MEDS: Lisinopril 20 MG Tab PO SCH (08:46)
[2017-10-06] MEDS: Potassium Chloride 20 MEQ Tab.ER PO SCH (08:47)
[2017-10-06] MEDS: Ascorbic Acid 500 MG Tab PO SCH (08:47)
[2017-10-06] MEDS: Levothyroxine 75 MCG Tab PO SCH (08:47)
[2017-10-06] MEDS: Hydrochlorothiazide 25 MG Tab PO SCH (08:47)
[2017-10-06] MEDS: Multivitamins with Iron/Calcium/Folic Acid/Minerals Tab PO SCH (08:47)
[2017-10-06] MEDS: Ferrous Sulfate 325 MG Tab PO SCH ×2 (08:47→16:40)
[2017-10-06] MEDS: amLODIPine 10 MG Tab PO SCH (08:47)
[2017-10-06] MEDS: Aspirin 81 MG Tab.Chew PO SCH (08:47)
[2017-10-06] MEDS: Gabapentin 300 MG Cap PO SCH (08:47)
[2017-10-06] MEDS: atorvaSTATin 40 MG Tab PO SCH (08:47)
[2017-10-06] MEDS: Clopidogrel 75 MG Tab PO SCH (08:47)
[2017-10-06] MEDS: Metoprolol Tartrate 50 MG Tab PO SCH ×2 (08:48→19:36)
[2017-10-06] MEDS: glipiZIDE 5 MG Tab PO SCH ×2 (08:48→16:40)
[2017-10-06] MEDS: Omeprazole 20 MG Cap.CR PO SCH (08:48)
[2017-10-06] MEDS: Dorzolamide/Timolol 2%-0.5% Ophth Soln 10 ML Bottle EYEBOTH SCH ×2 (08:48→19:36)
[2017-10-06] MEDS: oxyCODONE 5 MG Tab PO PRN ×2 (08:49→19:35)
[2017-10-06] MEDS: Lactobacillus Acidophilus/Lactobacillus Sporogenes (Probiotic) Tab PO SCH ×4 (08:49→19:33)
[2017-10-06] MEDS: traMADol 50 MG Tab PO PRN (12:11)
[2017-10-06] MEDS: Mirtazapine 15 MG Tab PO SCH (19:36)
[2017-10-06] MEDS: Latanoprost 0.005% Ophth Soln 2.5 ML Bottle EYEBOTH SCH (19:37)
[2017-10-07] MEDS: Megestrol Susp 40 MG/ML ML (240 ML Bottle) PO SCH (08:26)
[2017-10-07] MEDS: Clopidogrel 75 MG Tab PO SCH (08:27)
[2017-10-07] MEDS: atorvaSTATin 40 MG Tab PO SCH (08:27)
[2017-10-07] MEDS: Gabapentin 300 MG Cap PO SCH (08:27)
[2017-10-07] MEDS: amLODIPine 10 MG Tab PO SCH (08:27)
[2017-10-07] MEDS: glipiZIDE 5 MG Tab PO SCH ×2 (08:27→16:32)
[2017-10-07] MEDS: Levothyroxine 75 MCG Tab PO SCH (08:27)
[2017-10-07] MEDS: Calcium Carbonate/Vitamin D3 1500 MG-400 Units Tab PO SCH (08:27)
[2017-10-07] MEDS: Potassium Chloride 20 MEQ Tab.ER PO SCH (08:28)
[2017-10-07] MEDS: Hydrochlorothiazide 25 MG Tab PO SCH (08:28)
[2017-10-07] MEDS: Metoprolol Tartrate 50 MG Tab PO SCH ×2 (08:28→20:19)
[2017-10-07] MEDS: Ascorbic Acid 500 MG Tab PO SCH (08:28)
[2017-10-07] MEDS: Ferrous Sulfate 325 MG Tab PO SCH ×2 (08:28→16:33)
[2017-10-07] MEDS: Lisinopril 20 MG Tab PO SCH (08:28)
[2017-10-07] MEDS: Aspirin 81 MG Tab.Chew PO SCH (08:28)
[2017-10-07] MEDS: Omeprazole 20 MG Cap.CR PO SCH (08:28)
[2017-10-07] MEDS: Dorzolamide/Timolol 2%-0.5% Ophth Soln 10 ML Bottle EYEBOTH SCH ×2 (08:29→20:18)
[2017-10-07] MEDS: Multivitamins with Iron/Calcium/Folic Acid/Minerals Tab PO SCH (08:29)
[2017-10-07] MEDS: Lactobacillus Acidophilus/Lactobacillus Sporogenes (Probiotic) Tab PO SCH ×3 (08:31→17:06)
[2017-10-07] MEDS: oxyCODONE 5 MG Tab PO PRN ×2 (08:36→16:33)
[2017-10-07] MEDS: traMADol 50 MG Tab PO PRN (12:06)
[2017-10-07] MEDS: Tuberculin, PPD 5 Units/0.1 ML 1 ML MDV IDERM ONE ×2 (14:16)
[2017-10-07] MEDS: Latanoprost 0.005% Ophth Soln 2.5 ML Bottle EYEBOTH SCH (20:18)
[2017-10-07] MEDS: Mirtazapine 15 MG Tab PO SCH (20:20)
[2017-10-08] MEDS: Clopidogrel 75 MG Tab PO SCH (07:27)
[2017-10-08] MEDS: Gabapentin 300 MG Cap PO SCH (07:27)
[2017-10-08] MEDS: Metoprolol Tartrate 50 MG Tab PO SCH ×2 (07:27→19:57)
[2017-10-08] MEDS: Omeprazole 20 MG Cap.CR PO SCH (07:27)
[2017-10-08] MEDS: Hydrochlorothiazide 25 MG Tab PO SCH (07:28)
[2017-10-08] MEDS: Multivitamins with Iron/Calcium/Folic Acid/Minerals Tab PO SCH (07:28)
[2017-10-08] MEDS: amLODIPine 10 MG Tab PO SCH (07:28)
[2017-10-08] MEDS: Potassium Chloride 20 MEQ Tab.ER PO SCH (07:28)
[2017-10-08] MEDS: atorvaSTATin 40 MG Tab PO SCH (07:28)
[2017-10-08] MEDS: Lactobacillus Acidophilus/Lactobacillus Sporogenes (Probiotic) Tab PO SCH ×3 (07:28→17:30)
[2017-10-08] MEDS: Ferrous Sulfate 325 MG Tab PO SCH ×2 (07:28→17:30)
[2017-10-08] MEDS: Ascorbic Acid 500 MG Tab PO SCH (07:28)
[2017-10-08] MEDS: Aspirin 81 MG Tab.Chew PO SCH (07:28)
[2017-10-08] MEDS: Calcium Carbonate/Vitamin D3 1500 MG-400 Units Tab PO SCH (07:28)
[2017-10-08] MEDS: glipiZIDE 5 MG Tab PO SCH ×2 (07:28→17:30)
[2017-10-08] MEDS: Levothyroxine 75 MCG Tab PO SCH (07:28)
[2017-10-08] MEDS: Dorzolamide/Timolol 2%-0.5% Ophth Soln 10 ML Bottle EYEBOTH SCH ×2 (07:29→19:59)
[2017-10-08] MEDS: Lisinopril 20 MG Tab PO SCH (07:29)
[2017-10-08] MEDS: Megestrol Susp 40 MG/ML ML (240 ML Bottle) PO SCH (07:29)
[2017-10-08] MEDS: traMADol 50 MG Tab PO PRN ×2 (07:30→14:18)
--- NOTE | 2017-10-08 17:29 | PCM.PN ---
- General Info Date of Service: 10/08/17 Subjective Update: Patient has been doing well and improving daily. She has some anxiety about going home due to concerns that she may fall. She has the strength and mobility and is improving daily. Patient denies any fever or chills. - Review of Systems General: Reports: Weakness HEENT: Reports: No Symptoms Pulmonary: Reports: No Symptoms Cardiovascular: Reports: No Symptoms Gastrointestinal: Reports: No Symptoms Genitourinary: Reports: No Symptoms Musculoskeletal: Reports: No Symptoms Skin: Reports: Other (wounds of left foot) Neurological: Reports: Weakness Psychiatric: Reports: No Symptoms - Patient Data Vitals - Most Recent: Last Vital Signs Temp 36.6 C 10/08/17 10:00 Pulse 78 10/08/17 10:00 Resp 16 10/07/17 10:00 BP 154/70 H 10/08/17 10:00 Pulse Ox 100 10/08/17 10:00 Weight - Most Recent: 46.947 kg Lab Results Last 24 Hours: Laboratory Results - last 24 hr 10/08/17 10/08/17 10/08/17 Range/Units 06:23 10:43 15:23 WBC 8.1 (4.0-11.0) K/uL RBC 2.51 L (3.80-5.80) M/uL Hgb 7.9 L (11.5-16.5) g/dL Hct 23.8 L (37.0-47.0) % MCV 95 (76-96) fL MCH 31.5 (27.0-32.0) pg MCHC 33.2 (31.0-35.0) g/dL RDW 14.4 (11.0-16.0) % Plt Count 243 D (150-500) K/uL MPV 9.0 (6.0-10.0) fL Neut % (Auto) 63.9 (45.0-70.0) % Lymph % (Auto) 21.4 (20.0-40.0) % [place] % (Auto) 11.4 H (3.0-10.0) % Eos % (Auto) 2.4 (1.0-5.0) % Baso % (Auto) 0.9 H (0.0-0.5) % Neut # (Auto) 5.17 (2.00-7.50) K/uL Lymph # (Auto) 1.73 (1.50-4.00) K/uL [place] # (Auto) 0.92 H (0.20-0.80) K/uL Eos # (Auto) 0.19 (0.04-0.40) K/uL Baso # (Auto) 0.07 (0.02-0.10) K/uL Sodium (136-145) mmol/L Potassium (3.5-5.1) mmol/L Chloride (98-107) mmol/L Carbon Dioxide (21.0-32.0) mmol/L Anion Gap (5.0-15.0) mmol/L BUN (8-26) mg/dL Creatinine (0.55-1.02) mg/dL Est Cr Clr Drug Dosing mL/min Estimated GFR (MDRD) (>60) MLS/MIN BUN/Creatinine Ratio (6-25) Glucose (74-100) mg/dL POC Glucose 124 H 121 H (74-110) mg/dL Calcium (8.5-10.1) mg/dL Total Bilirubin (0.0-1.0) mg/dL AST (15-37) U/L ALT (12-78) U/L Alkaline Phosphatase (46-116) U/L Total Protein (6.4-8.2) g/dL Albumin (3.4-5.0) g/dL Globulin (2.2-4.2) g/dL Albumin/Globulin Ratio (0.8-2.0) 10/08/17 10/08/17 Range/Units 15:23 17:19 WBC (4.0-11.0) K/uL RBC (3.80-5.80) M/uL Hgb (11.5-16.5) g/dL Hct (37.0-47.0) % MCV (76-96) fL MCH (27.0-32.0) pg MCHC (31.0-35.0) g/dL RDW (11.0-16.0) % Plt Count (150-500) K/uL MPV (6.0-10.0) fL Neut % (Auto) (45.0-70.0) % Lymph % (Auto) (20.0-40.0) % [place] % (Auto) (3.0-10.0) % Eos % (Auto) (1.0-5.0) % Baso % (Auto) (0.0-0.5) % Neut # (Auto) (2.00-7.50) K/uL Lymph # (Auto) (1.50-4.00) K/uL [place] # (Auto) (0.20-0.80) K/uL Eos # (Auto) (0.04-0.40) K/uL Baso # (Auto) (0.02-0.10) K/uL Sodium 131 L (136-145) mmol/L Potassium 4.8 (3.5-5.1) mmol/L Chloride 101 (98-107) mmol/L Carbon Dioxide 21.5 (21.0-32.0) mmol/L Anion Gap 13.3 (5.0-15.0) mmol/L BUN 26 (8-26) mg/dL Creatinine 1.81 H (0.55-1.02) mg/dL Est Cr Clr Drug Dosing 15.30 mL/min Estimated GFR (MDRD) 26 L (>60) MLS/MIN BUN/Creatinine Ratio 14.4 (6-25) Glucose 137 H D (74-100) mg/dL POC Glucose 136 H (74-110) mg/dL Calcium 8.5 (8.5-10.1) mg/dL Total Bilirubin 0.3 (0.0-1.0) mg/dL AST 17 (15-37) U/L ALT 15 (12-78) U/L Alkaline Phosphatase 164 H (46-116) U/L Total Protein 6.6 (6.4-8.2) g/dL Albumin 2.0 L (3.4-5.0) g/dL Globulin 4.6 H (2.2-4.2) g/dL Albumin/Globulin Ratio 0.4 L (0.8-2.0) Med Orders - Current: Current Medications Acetaminophen (Tylenol) 650 mg PO Q4H PRN PRN Reason: MILD PAIN (1-3 PAIN SCALE) Last Admin: 10/04/17 04:50 Dose: 650 mg Amlodipine Besylate (Norvasc) 10 mg PO DAILY [facility] Last Admin: 10/08/17 07:28 Dose: 10 mg Ascorbic Acid (Vitamin C) 500 mg PO DAILY [facility] Last Admin: 10/08/17 07:28 Dose: 500 mg Aspirin (Aspirin) 81 mg PO DAILY [facility] Last Admin: 10/08/17 07:28 Dose: 81 mg Atorvastatin Calcium (Lipitor) 40 mg PO DAILY [facility] Last Admin: 10/08/17 07:28 Dose: 40 mg Calcium Carbonate (Caltrate 600+D 1500 Mg-400 Units) 1 tab PO DAILY [facility] Last Admin: 10/08/17 07:28 Dose: 1 tab Clopidogrel Bisulfate (Plavix) 75 mg PO DAILY [facility] Last Admin: 10/08/17 07:27 Dose: 75 mg Dorzolamide/Timolol (Cosopt 2%-0.5% Ophth Soln) 0 - 1 ml EYEBOTH BID [facility] Last Admin: 10/08/17 07:29 Dose: 1 drop Ferrous Sulfate (Ferrous Sulfate) 325 mg PO BID@0800,1700 [facility] Last Admin: 10/08/17 07:28 Dose: 325 mg Gabapentin (Neurontin) 300 mg PO DAILY [facility] Last Admin: 10/08/17 07:27 Dose: 300 mg Glipizide (Glucotrol) 5 mg PO DAILY [facility] Last Admin: 10/08/17 07:28 Dose: 5 mg Glipizide (Glucotrol) 2.5 mg PO ACDINNER [facility] Last Admin: 10/07/17 16:32 Dose: 2.5 mg Hydrochlorothiazide (Hydrochlorothiazide) 25 mg PO DAILY [facility] Last Admin: 10/08/17 07:28 Dose: 25 mg Insulin Aspart (Novolog) 0 unit SUBCUT TIDMEALS [facility]; Protocol Last Admin: 09/28/17 07:45 Dose: Not Given Lactobacillus Acidophilus (Acidolphilus Extra Strength) 1 tab PO TIDMEALS [facility] Last Admin: 10/08/17 12:03 Dose: 1 tab Latanoprost (Xalatan 0.005% Ophth Soln) 0 - 1 ml EYEBOTH BEDTIME [facility] Last Admin: 10/07/17 20:18 Dose: 1 drop Levothyroxine Sodium (Levothyroxine) 75 mcg PO ACBREAKFAST [facility] Last Admin: 10/08/17 07:28 Dose: 75 mcg Lisinopril (Prinivil) 40 mg PO DAILY [facility] Last Admin: 10/08/17 07:29 Dose: 40 mg Megestrol Acetate (Megace 40 Mg/Ml Susp) 400 mg PO DAILY@0700 [facility] Last Admin: 10/08/17 07:29 Dose: 400 mg Melatonin (Melatonin) 3 mg PO BEDTIME PRN PRN Reason: INSOMNIA Last Admin: 09/22/17 23:55 Dose: 3 mg Metoprolol Tartrate (Lopressor) 50 mg PO BID [facility] Last Admin: 10/08/17 07:27 Dose: 50 mg Mirtazapine (Remeron) 15 mg PO BEDTIME [facility] Last Admin: 10/07/17 20:20 Dose: 15 mg Multivitamins/Minerals (Thera M Plus) 1 tab PO DAILY [facility] Last Admin: 10/08/17 07:28 Dose: 1 tab Naproxen (Naprosyn) 250 mg PO BID PRN PRN Reason: MODERATE PAIN 4-6 PAIN SCALE Last Admin: 10/04/17 17:24 Dose: 250 mg Nitroglycerin (Nitrostat) 0.4 mg SL ASDIRECTED PRN PRN Reason: ANGINA Omeprazole (Omeprazole) 20 mg PO DAILY [facility] Last Admin: 10/08/17 07:27 Dose: 20 mg Oxycodone HCl (Oxycodone) 5 mg PO Q4H PRN PRN Reason: Pain Last Admin: 10/07/17 16:33 Dose: 5 mg Potassium Chloride (Klor-Con M20) 20 meq PO DAILY [facility] Last Admin: 10/08/17 07:28 Dose: 20 meq Tramadol HCl (Ultram) 50 mg PO Q4H PRN PRN Reason: SEVERE PAIN 7-10 PAIN SCALE Last Admin: 10/08/17 14:18 Dose: 50 mg Discontinued Medications Amoxicillin/Clavulanate Potassium (Augmentin 875 Mg/125 Mg) 1 tab PO Q12HR [facility] Stop: 10/01/17 08:01 Last Admin: 10/01/17 11:28 Dose: 1 tab Calcium Carbonate/Glycine (Tums) Confirm Administered Dose 500 mg .ROUTE .STK- MED ONE Stop: 10/02/17 09:51 Last Admin: 10/02/17 10:07 Dose: 500 mg Doxycycline Hyclate (Vibramycin) 100 mg PO BID [facility] Stop: 10/05/17 23:59 Last Admin: 10/05/17 20:01 Dose: 100 mg Ferrous Sulfate (Ferrous Sulfate) 325 mg PO BID [facility] Gabapentin (Neurontin) 100 mg PO BEDTIME PRN PRN Reason: NERVE PAIN Last Admin: 09/22/17 20:00 Dose: 100 mg Glipizide (Glucotrol) 5 mg PO DAILY@1200 [facility] Stop: 09/27/17 13:00 Last Admin: 09/27/17 11:45 Dose: 5 mg Lactobacillus Acidophilus (Acidolphilus Extra Strength) Confirm Administered Dose 1 tab .ROUTE .ST-MED ONE Stop: 10/01/17 11:03 Last Admin: 10/01/17 11:31 Dose: Not Given Lisinopril (Prinivil) Confirm Administered Dose 20 mg .ROUTE .ST-MED ONE Stop: 10/03/17 08:25 Last Admin: 10/03/17 08:38 Dose: Not Given Metformin HCl (Glucophage) 1,000 mg PO BID [facility] Last Admin: 09/23/17 08:33 Dose: Not Given Multivitamins/Minerals (Thera M Plus) 1 tab PO BEDTIME [facility] Last Admin: 09/24/17 10:13 Dose: Not Given Amoxicillin- Clavulanate Potassium 500-125mg Tablets 1 each PO BID [facility] Stop: 10/05/17 23:59 Last Admin: 10/05/17 20:01 Dose: 1 each Oxycodone HCl (Oxycodone) Confirm Administered Dose 5 mg .ROUTE .[facility]-MED ONE Stop: 09/23/17 00:18 Last Admin: 09/23/17 00:24 Dose: 5 mg Oxycodone HCl (Oxycodone) Confirm Administered Dose 5 mg .ROUTE .[facility]-MED ONE Stop: 09/29/17 23:08 Last Admin: 09/29/17 23:14 Dose: Not Given Tuberculin PPD (Aplisol) 5 unit IDERM ONETIME ONE Stop: 09/21/17 17:10 Last Admin: 09/22/17 10:52 Dose: 5 unit Tuberculin PPD (Aplisol) 5 unit IDERM ONETIME ONE Stop: 10/06/17 11:01 Last Admin: 10/07/17 14:16 Dose: 5 unit - Exam General: Alert, Oriented, Cooperative HEENT: Pupils Equal, Pupils Reactive, EOMI Lungs: Clear to Auscultation, Normal Respiratory Effort Cardiovascular: Regular Rate, Regular Rhythm GI/Abdominal Exam: Normal Bowel Sounds Extremities: Other (left foot wounds) Skin: Other Wound/Incisions: Healing Well (improved wounds), Drainage, Erythema Improving - Problem List & Annotations (1) Wound drainage SNOMED Code(s): 356105778, 491570201 Code(s): T14.8XXA - OTHER INJURY OF UNSPECIFIED BODY REGION, INITIAL ENCOUNTER Status: Acute Priority: High Current Visit: Yes (2) Diabetes mellitus type 2 in nonobese SNOMED Code(s): 233962481 Code(s): E11.9 - TYPE 2 DIABETES MELLITUS WITHOUT COMPLICATIONS Status: Acute Priority: High Current Visit: Yes (3) Hypothyroid SNOMED Code(s): 34904425 Code(s): E03.9 - HYPOTHYROIDISM, UNSPECIFIED Status: Acute Priority: High Current Visit: Yes (4) Pain in left foot SNOMED Code(s): 34928075 Code(s): M79.672 - PAIN IN LEFT FOOT Status: Acute Priority: High Current Visit: Yes - Problem List Review Problem List Initiated/Reviewed/Updated: Yes - Plan Plan:: Patient placed in swing bed for subacute rehabilitation of wounds for wound care , PT/OT for strengthening, and pain management and control. Diet as tolerated - Cardiac. Family present and agree with plan of care. 09/28/17 Continue wound care and management with close monitoring. Continue PT/OT for ambulation. Pain control monitoring and management. 10/08/17 Improving wounds. F/u care conference and discharge planning tomorrow. Patient will require further wound care f/u after discharge.
[2017-10-08] MEDS: Naproxen 250 MG Tab PO PRN (17:30)
[2017-10-08] MEDS: oxyCODONE 5 MG Tab PO PRN (17:34)
[2017-10-08] MEDS: Mirtazapine 15 MG Tab PO SCH (20:00)
[2017-10-08] MEDS: Latanoprost 0.005% Ophth Soln 2.5 ML Bottle EYEBOTH SCH (20:00)
[2017-10-09] MEDS: oxyCODONE 5 MG Tab PO PRN ×3 (06:32→19:33)
[2017-10-09] MEDS: Levothyroxine 75 MCG Tab PO SCH (06:32)
[2017-10-09] MEDS: Megestrol Susp 40 MG/ML ML (240 ML Bottle) PO SCH (06:32)
[2017-10-09] MEDS: Ascorbic Acid 500 MG Tab PO SCH (08:58)
[2017-10-09] MEDS: Ferrous Sulfate 325 MG Tab PO SCH ×2 (08:58→17:21)
[2017-10-09] MEDS: Lactobacillus Acidophilus/Lactobacillus Sporogenes (Probiotic) Tab PO SCH ×3 (08:58→17:21)
[2017-10-09] MEDS: Hydrochlorothiazide 25 MG Tab PO SCH (08:58)
[2017-10-09] MEDS: atorvaSTATin 40 MG Tab PO SCH (08:59)
[2017-10-09] MEDS: Lisinopril 20 MG Tab PO SCH (08:59)
[2017-10-09] MEDS: amLODIPine 10 MG Tab PO SCH (08:59)
[2017-10-09] MEDS: Calcium Carbonate/Vitamin D3 1500 MG-400 Units Tab PO SCH (08:59)
[2017-10-09] MEDS: Potassium Chloride 20 MEQ Tab.ER PO SCH (08:59)
[2017-10-09] MEDS: Multivitamins with Iron/Calcium/Folic Acid/Minerals Tab PO SCH (08:59)
[2017-10-09] MEDS: Dorzolamide/Timolol 2%-0.5% Ophth Soln 10 ML Bottle EYEBOTH SCH ×2 (09:00→19:33)
[2017-10-09] MEDS: Clopidogrel 75 MG Tab PO SCH (09:00)
[2017-10-09] MEDS: Aspirin 81 MG Tab.Chew PO SCH (09:00)
[2017-10-09] MEDS: Gabapentin 300 MG Cap PO SCH (09:00)
[2017-10-09] MEDS: Metoprolol Tartrate 50 MG Tab PO SCH ×2 (09:00→19:33)
[2017-10-09] MEDS: Omeprazole 20 MG Cap.CR PO SCH (09:00)
[2017-10-09] MEDS: glipiZIDE 5 MG Tab PO SCH ×2 (09:04→17:21)
[2017-10-09] MEDS: Latanoprost 0.005% Ophth Soln 2.5 ML Bottle EYEBOTH SCH (19:33)
[2017-10-09] MEDS: Mirtazapine 15 MG Tab PO SCH (19:33)
[2017-10-10] MEDS: oxyCODONE 5 MG Tab PO PRN ×2 (06:14→19:34)
[2017-10-10] MEDS: Levothyroxine 75 MCG Tab PO SCH (06:14)
[2017-10-10] MEDS: Megestrol Susp 40 MG/ML ML (240 ML Bottle) PO SCH (06:15)
[2017-10-10] MEDS: Omeprazole 20 MG Cap.CR PO SCH (08:11)
[2017-10-10] MEDS: Dorzolamide/Timolol 2%-0.5% Ophth Soln 10 ML Bottle EYEBOTH SCH ×2 (08:11→19:35)
[2017-10-10] MEDS: amLODIPine 10 MG Tab PO SCH (08:11)
[2017-10-10] MEDS: atorvaSTATin 40 MG Tab PO SCH (08:12)
[2017-10-10] MEDS: glipiZIDE 5 MG Tab PO SCH ×2 (08:12→17:40)
[2017-10-10] MEDS: Aspirin 81 MG Tab.Chew PO SCH (08:12)
[2017-10-10] MEDS: Multivitamins with Iron/Calcium/Folic Acid/Minerals Tab PO SCH (08:13)
[2017-10-10] MEDS: Metoprolol Tartrate 50 MG Tab PO SCH ×2 (08:13→19:34)
[2017-10-10] MEDS: Ferrous Sulfate 325 MG Tab PO SCH ×2 (08:14→17:40)
[2017-10-10] MEDS: Ascorbic Acid 500 MG Tab PO SCH (08:14)
[2017-10-10] MEDS: Gabapentin 300 MG Cap PO SCH (08:14)
[2017-10-10] MEDS: Calcium Carbonate/Vitamin D3 1500 MG-400 Units Tab PO SCH (08:14)
[2017-10-10] MEDS: Clopidogrel 75 MG Tab PO SCH (08:14)
[2017-10-10] MEDS: Hydrochlorothiazide 25 MG Tab PO SCH (08:14)
[2017-10-10] MEDS: Lactobacillus Acidophilus/Lactobacillus Sporogenes (Probiotic) Tab PO SCH ×2 (08:15→14:54)
[2017-10-10] MEDS: Potassium Chloride 20 MEQ Tab.ER PO SCH (08:15)
[2017-10-10] MEDS: Lisinopril 20 MG Tab PO SCH (08:18)
[2017-10-10] MEDS: traMADol 50 MG Tab PO PRN (16:23)
[2017-10-10] MEDS: Mirtazapine 15 MG Tab PO SCH (19:34)
[2017-10-10] MEDS: Latanoprost 0.005% Ophth Soln 2.5 ML Bottle EYEBOTH SCH (19:35)
[2017-10-11] MEDS: traMADol 50 MG Tab PO PRN (06:37)
[2017-10-11] MEDS: Levothyroxine 75 MCG Tab PO SCH (06:40)
[2017-10-11] MEDS: Megestrol Susp 40 MG/ML ML (240 ML Bottle) PO SCH (06:40)
[2017-10-11] MEDS: Metoprolol Tartrate 50 MG Tab PO SCH ×2 (08:00→20:39)
[2017-10-11] MEDS: Ascorbic Acid 500 MG Tab PO SCH (08:27)
[2017-10-11] MEDS: glipiZIDE 5 MG Tab PO SCH ×2 (08:27→17:48)
[2017-10-11] MEDS: Lactobacillus Acidophilus/Lactobacillus Sporogenes (Probiotic) Tab PO SCH (08:27)
[2017-10-11] MEDS: Potassium Chloride 20 MEQ Tab.ER PO SCH (08:27)
[2017-10-11] MEDS: amLODIPine 10 MG Tab PO SCH (08:27)
[2017-10-11] MEDS: Aspirin 81 MG Tab.Chew PO SCH (08:27)
[2017-10-11] MEDS: Gabapentin 300 MG Cap PO SCH (08:27)
[2017-10-11] MEDS: Clopidogrel 75 MG Tab PO SCH (08:28)
[2017-10-11] MEDS: Ferrous Sulfate 325 MG Tab PO SCH ×2 (08:28→17:47)
[2017-10-11] MEDS: Multivitamins with Iron/Calcium/Folic Acid/Minerals Tab PO SCH (08:28)
[2017-10-11] MEDS: Calcium Carbonate/Vitamin D3 1500 MG-400 Units Tab PO SCH (08:28)
[2017-10-11] MEDS: Hydrochlorothiazide 25 MG Tab PO SCH (08:28)
[2017-10-11] MEDS: Omeprazole 20 MG Cap.CR PO SCH (08:29)
[2017-10-11] MEDS: Dorzolamide/Timolol 2%-0.5% Ophth Soln 10 ML Bottle EYEBOTH SCH ×2 (08:29→20:41)
[2017-10-11] MEDS: atorvaSTATin 40 MG Tab PO SCH (08:29)
[2017-10-11] MEDS: Lisinopril 20 MG Tab PO SCH (08:30)
[2017-10-11] MEDS: oxyCODONE 5 MG Tab PO PRN ×2 (12:26→16:30)
[2017-10-11] MEDS: Mirtazapine 15 MG Tab PO SCH (20:39)
[2017-10-11] MEDS: Latanoprost 0.005% Ophth Soln 2.5 ML Bottle EYEBOTH SCH (20:41)
[2017-10-12] MEDS: oxyCODONE 5 MG Tab PO PRN (05:24)
[2017-10-12] MEDS: Levothyroxine 75 MCG Tab PO SCH (06:05)
[2017-10-12] MEDS: Megestrol Susp 40 MG/ML ML (240 ML Bottle) PO SCH (07:10)
[2017-10-12] MEDS: Ferrous Sulfate 325 MG Tab PO SCH (08:02)
[2017-10-12] MEDS: Multivitamins with Iron/Calcium/Folic Acid/Minerals Tab PO SCH (08:02)
[2017-10-12] MEDS: Lactobacillus Acidophilus/Lactobacillus Sporogenes (Probiotic) Tab PO SCH (08:02)
[2017-10-12] MEDS: glipiZIDE 5 MG Tab PO SCH (08:03)
[2017-10-12] MEDS: Metoprolol Tartrate 50 MG Tab PO SCH (08:03)
[2017-10-12] MEDS: Aspirin 81 MG Tab.Chew PO SCH (08:03)
[2017-10-12] MEDS: Omeprazole 20 MG Cap.CR PO SCH (08:03)
[2017-10-12] MEDS: Lisinopril 20 MG Tab PO SCH (08:03)
[2017-10-12] MEDS: Gabapentin 300 MG Cap PO SCH (08:03)
[2017-10-12] MEDS: Ascorbic Acid 500 MG Tab PO SCH (08:04)
[2017-10-12] MEDS: Potassium Chloride 20 MEQ Tab.ER PO SCH (08:04)
[2017-10-12] MEDS: Clopidogrel 75 MG Tab PO SCH (08:04)
[2017-10-12] MEDS: Dorzolamide/Timolol 2%-0.5% Ophth Soln 10 ML Bottle EYEBOTH SCH (08:04)
[2017-10-12] MEDS: Hydrochlorothiazide 25 MG Tab PO SCH (08:04)
[2017-10-12] MEDS: atorvaSTATin 40 MG Tab PO SCH (08:04)
[2017-10-12] MEDS: Calcium Carbonate/Vitamin D3 1500 MG-400 Units Tab PO SCH (08:04)
[2017-10-12 08:05] VITALS: BP 159/81
[2017-10-12] MEDS: amLODIPine 10 MG Tab PO SCH (08:42)
--- NOTE | 2017-10-12 13:05 | PCM.DCSUM1 ---
Discharge Summary - Hospital Course Free Text/Narrative:: Patient has improved skin wound healing of the left foot. She will require wound care f/u and f/u with her PCP as routine for routine check and wound care. Continue dressings. F/u monitoring and BP check for medication adjustment as needed and labs as needed. - Discharge Data Discharge Date: 10/12/17 Discharge Disposition: Home, Self-Care 01 Condition: Good - Discharge Diagnosis/Problem(s) (1) Wound drainage SNOMED Code(s): 794306565, [id number] ICD Code: T14.8XXA - OTHER INJURY OF UNSPECIFIED BODY REGION, INITIAL ENCOUNTER Status: Acute Priority: High Current Visit: Yes (2) Diabetes mellitus type 2 in nonobese SNOMED Code(s): 355756424 ICD Code: E11.9 - TYPE 2 DIABETES MELLITUS WITHOUT COMPLICATIONS Status: Acute Priority: High Current Visit: Yes (3) Hypothyroid SNOMED Code(s): 29029581 ICD Code: E03.9 - HYPOTHYROIDISM, UNSPECIFIED Status: Acute Priority: High Current Visit: Yes (4) Pain in left foot SNOMED Code(s): 31675392 ICD Code: M79.672 - PAIN IN LEFT FOOT Status: Acute Priority: High Current Visit: Yes - Patient Summary/Data Consults: Consultations 09/21/17 15:49 Wound Engagement Executive Consult [Consult to Wound Care Services] [CONS] Routine Comment: Physician Instructions: 09/23/17 17:15 OT Evaluation and Treatment [CONS] Routine Please Evaluate and Treat. OT Reason for Consult: ADL's This query below is only for informational purposes and is not editable. Admission Diagnosis/Problem: Cellulitis PT Evaluation and Treatment [CONS] Routine Please Evaluate and Treat. PT Reason for Consult: Strengthening Special Instructions: wound care, strengthing, ambulation This query below is only for informational purposes and is not editable. Admission Diagnosis/Problem: Cellulitis - Discharge Plan Prescriptions/Med Rec: Amoxicillin/Clavulanate K [Augmentin 500-125 MG] 1 tab PO BID #20 tablet Home Medications: Home Meds Aspirin [Mona Chewable Aspirin] 81 mg PO DAILY 09/04/17 [History] Clopidogrel [Plavix] 75 mg PO DAILY 09/04/17 [History] Latanoprost [Xalatan 0.005% Oph Soln] 1 drop OP BEDTIME 09/04/17 [History] Lisinopril [Prinivil] 2 tab PO DAILY 09/04/17 [History] Metoprolol Tartrate [Lopressor] 50 mg PO BID 09/04/17 [History] Omeprazole 20 mg PO DAILY 09/04/17 [History] amLODIPine Besylate [Amlodipine Besylate] 10 mg PO DAILY 09/04/17 [History] Levothyroxine 75 tab PO ACBREAKFAST 09/07/17 [History] Acetaminophen [Acetaminophen 8 Hour] 650 mg PO Q4HR PRN 09/21/17 [History] Ascorbic Acid [Vitamin C] 500 mg PO DAILY 09/21/17 [History] Calcium Citrate/Vitamin D3 [Pamlico Calcium-Vit D 200-250] 1 tab PO DAILY [History] Dorzolamide HCl/Timolol Maleat [Dorzolamide-Timolol Eye Drops] 1 drop OP BID [History] Ferrous Sulfate 325 mg PO BID 09/21/17 [History] Gabapentin [Neurontin] 200 mg PO BEDTIME 09/21/17 [History] Lactobacillus Acidophilus [Acidophilus] 100 mg PO TIDMEALS 09/21/17 [History] Mirtazapine 15 mg PO BEDTIME 09/21/17 [History] Multivitamin with Minerals [Multiple Vitamin] 1 tab PO DAILY 09/21/17 [History] Naproxen Sodium 220 mg PO BID PRN 09/21/17 [History] Timolol Maleate [Timoptic 0.5% Ophth Soln] 1 drop OP BID 09/21/17 [History] atorvaSTATin [Lipitor] 40 mg PO DAILY 09/21/17 [History] glipiZIDE [Glipizide ER] 10 mg PO DAILY 09/21/17 [History] metFORMIN [Glucophage] 1 tab PO BID 09/21/17 [History] traMADol [Ultram] 50 mg PO Q4H PRN 09/21/17 [History] Acidophilus/Lactobac Spor [Acidolphilus X-Strength] 1 tab PO DAILY tablet 10/12 [Rx] Amoxicillin/Clavulanate K [Augmentin 500-125 MG] 1 tab PO BID #20 tablet [Rx] Ascorbic Acid [Vitamin C] 500 mg PO DAILY tablet 10/12/17 [Rx] Aspirin 81 mg PO DAILY tab.chew 10/12/17 [Rx] Calcium Carbonate/Vitamin D3 [Caltrate 600+D 1500 MG-400 Units] 1 tab PO DAILY tablet 10/12/17 [Rx] Clopidogrel [Plavix] 75 mg PO DAILY tablet 10/12/17 [Rx] Dorzolamide/Timolol [Cosopt 2%-0.5% Ophth Soln] 0 - 1 ml EYEBOTH BID bottle [Rx] Ferrous Sulfate 325 mg PO BID@0800,1700 tablet 10/12/17 [Rx] Latanoprost [Xalatan 0.005% Ophth Soln] 0 - 1 ml EYEBOTH BEDTIME bottle [Rx] Levothyroxine 75 mcg PO ACBREAKFAST tablet 10/12/17 [Rx] Lisinopril [Prinivil] 40 mg PO DAILY tablet 10/12/17 [Rx] Metoprolol Tartrate [Lopressor] 50 mg PO BID tablet 10/12/17 [Rx] Mirtazapine [Remeron] 15 mg PO BEDTIME tablet 10/12/17 [Rx] Nitroglycerin [Nitrostat] 0.4 mg SL ASDIRECTED PRN tab.sl 10/12/17 [Rx] Omeprazole 20 mg PO DAILY cap.cr 10/12/17 [Rx] Potassium Chloride [Klor-Con M20] 20 meq PO DAILY tab.er 10/12/17 [Rx] atorvaSTATin [Lipitor] 40 mg PO DAILY tablet 10/12/17 [Rx] traMADol [Ultram] 50 mg PO Q4H PRN tablet 10/12/17 [Rx] Patient Handouts: Fall Prevention in the Home, [id number], Wound Infection, [id number], Blood Glucose Monitoring, Adult - Patient Data Vitals - Most Recent: Last Vital Signs Temp 37.1 C 10/12/17 08:00 Pulse 64 10/12/17 08:03 Resp 12 10/12/17 08:00 BP 159/81 H 10/12/17 08:42 Pulse Ox 100 10/12/17 08:00 Weight - Most Recent: 48.262 kg Lab Results - Last 24 hrs: Laboratory Results - last 24 hr 10/11/17 10/12/17 Range/Units 18:21 06:21 POC Glucose 151 H 81 (74-110) mg/dL Med Orders - Current: Current Medications Acetaminophen (Tylenol) 650 mg PO Q4H PRN PRN Reason: MILD PAIN (1-3 PAIN SCALE) Last Admin: 10/04/17 04:50 Dose: 650 mg Amlodipine Besylate (Norvasc) 10 mg PO DAILY [facility] Last Admin: 10/12/17 08:42 Dose: 10 mg Ascorbic Acid (Vitamin C) 500 mg PO DAILY [facility] Last Admin: 10/12/17 08:04 Dose: 500 mg Aspirin (Aspirin) 81 mg PO DAILY [facility] Last Admin: 10/12/17 08:03 Dose: 81 mg Atorvastatin Calcium (Lipitor) 40 mg PO DAILY [facility] Last Admin: 10/12/17 08:04 Dose: 40 mg Calcium Carbonate (Caltrate 600+D 1500 Mg-400 Units) 1 tab PO DAILY [facility] Last Admin: 10/12/17 08:04 Dose: 1 tab Clopidogrel Bisulfate (Plavix) 75 mg PO DAILY [facility] Last Admin: 10/12/17 08:04 Dose: 75 mg Dorzolamide/Timolol (Cosopt 2%-0.5% Ophth Soln) 0 - 1 ml EYEBOTH BID [facility] Last Admin: 10/12/17 08:04 Dose: 1 drop Ferrous Sulfate (Ferrous Sulfate) 325 mg PO BID@0800,1700 [facility] Last Admin: 10/12/17 08:02 Dose: 325 mg Gabapentin (Neurontin) 300 mg PO DAILY [facility] Last Admin: 10/12/17 08:03 Dose: 300 mg Glipizide (Glucotrol) 5 mg PO DAILY [facility] Last Admin: 10/12/17 08:03 Dose: 5 mg Glipizide (Glucotrol) 2.5 mg PO ACDINNER [facility] Last Admin: 10/11/17 17:48 Dose: 2.5 mg Hydrochlorothiazide (Hydrochlorothiazide) 25 mg PO DAILY [facility] Last Admin: 10/12/17 08:04 Dose: 25 mg Insulin Aspart (Novolog) 0 unit SUBCUT TIDMEALS [facility]; Protocol Last Admin: 09/28/17 07:45 Dose: Not Given Lactobacillus Acidophilus (Acidolphilus Extra Strength) 1 tab PO DAILY [facility] Last Admin: 10/12/17 08:02 Dose: 1 tab Latanoprost (Xalatan 0.005% Ophth Soln) 0 - 1 ml EYEBOTH BEDTIME [facility] Last Admin: 10/11/17 20:41 Dose: 1 drop Levothyroxine Sodium (Levothyroxine) 75 mcg PO ACBREAKFAST [facility] Last Admin: 10/12/17 06:05 Dose: 75 mcg Lisinopril (Prinivil) 40 mg PO DAILY [facility] Last Admin: 10/12/17 08:03 Dose: 40 mg Megestrol Acetate (Megace 40 Mg/Ml Susp) 400 mg PO DAILY@0700 [facility] Last Admin: 10/12/17 07:10 Dose: 400 mg Melatonin (Melatonin) 3 mg PO BEDTIME PRN PRN Reason: INSOMNIA Last Admin: 09/22/17 23:55 Dose: 3 mg Metoprolol Tartrate (Lopressor) 50 mg PO BID [facility] Last Admin: 10/12/17 08:03 Dose: 50 mg Mirtazapine (Remeron) 15 mg PO BEDTIME [facility] Last Admin: 10/11/17 20:39 Dose: 15 mg Multivitamins/Minerals (Thera M Plus) 1 tab PO DAILY [facility] Last Admin: 10/12/17 08:02 Dose: 1 tab Naproxen (Naprosyn) 250 mg PO BID PRN PRN Reason: MODERATE PAIN 4-6 PAIN SCALE Last Admin: 10/08/17 17:30 Dose: 250 mg Nitroglycerin (Nitrostat) 0.4 mg SL ASDIRECTED PRN PRN Reason: ANGINA Omeprazole (Omeprazole) 20 mg PO DAILY [facility] Last Admin: 10/12/17 08:03 Dose: 20 mg Oxycodone HCl (Oxycodone) 5 mg PO Q4H PRN PRN Reason: Pain Last Admin: 10/12/17 05:24 Dose: 5 mg Potassium Chloride (Klor-Con M20) 20 meq PO DAILY [facility] Last Admin: 10/12/17 08:04 Dose: 20 meq Tramadol HCl (Ultram) 50 mg PO Q4H PRN PRN Reason: SEVERE PAIN 7-10 PAIN SCALE Last Admin: 10/11/17 06:37 Dose: 50 mg Discontinued Medications Amoxicillin/Clavulanate Potassium (Augmentin 875 Mg/125 Mg) 1 tab PO Q12HR [facility] Stop: 10/01/17 08:01 Last Admin: 10/01/17 11:28 Dose: 1 tab Calcium Carbonate/Glycine (Tums) Confirm Administered Dose 500 mg .ROUTE .STK- MED ONE Stop: 10/02/17 09:51 Last Admin: 10/02/17 10:07 Dose: 500 mg Doxycycline Hyclate (Vibramycin) 100 mg PO BID [facility] Stop: 10/05/17 23:59 Last Admin: 10/05/17 20:01 Dose: 100 mg Ferrous Sulfate (Ferrous Sulfate) 325 mg PO BID [facility] Gabapentin (Neurontin) 100 mg PO BEDTIME PRN PRN Reason: NERVE PAIN Last Admin: 09/22/17 20:00 Dose: 100 mg Glipizide (Glucotrol) 5 mg PO DAILY@1200 [facility] Stop: 09/27/17 13:00 Last Admin: 09/27/17 11:45 Dose: 5 mg Lactobacillus Acidophilus (Acidolphilus Extra Strength) 1 tab PO TIDMEALS [facility] Last Admin: 10/10/17 14:54 Dose: Not Given Lactobacillus Acidophilus (Acidolphilus Extra Strength) Confirm Administered Dose 1 tab .ROUTE .ST-MED ONE Stop: 10/01/17 11:03 Last Admin: 10/01/17 11:31 Dose: Not Given Lisinopril (Prinivil) Confirm Administered Dose 20 mg .ROUTE .STK-MED ONE Stop: 10/03/17 08:25 Last Admin: 10/03/17 08:38 Dose: Not Given Metformin HCl (Glucophage) 1,000 mg PO BID [facility] Last Admin: 09/23/17 08:33 Dose: Not Given Multivitamins/Minerals (Thera M Plus) 1 tab PO BEDTIME [facility] Last Admin: 09/24/17 10:13 Dose: Not Given Amoxicillin- Clavulanate Potassium 500-125mg Tablets 1 each PO BID [facility] Stop: 10/05/17 23:59 Last Admin: 10/05/17 20:01 Dose: 1 each Oxycodone HCl (Oxycodone) Confirm Administered Dose 5 mg .ROUTE .STK-MED ONE Stop: 09/23/17 00:18 Last Admin: 09/23/17 00:24 Dose: 5 mg Oxycodone HCl (Oxycodone) Confirm Administered Dose 5 mg .ROUTE .STK-MED ONE Stop: 09/29/17 23:08 Last Admin: 09/29/17 23:14 Dose: Not Given Tuberculin PPD (Aplisol) 5 unit IDERM ONETIME ONE Stop: 09/21/17 17:10 Last Admin: 09/22/17 10:52 Dose: 5 unit Tuberculin PPD (Aplisol) 5 unit IDERM ONETIME ONE Stop: 10/06/17 11:01 Last Admin: 10/07/17 14:16 Dose: 5 unit
== END 2017-10-12 14:20 | disposition home or self-care (01) | DRG 603 ==
LOC: LB.MS 09-21 12:52 → UNDOADMIN 09-21 12:52 → LB.MS 09-21 12:55
PROVIDERS: ADMIT Family Medicine; ATTEND Family Medicine
DX: L03.116 Cellulitis of left lower limb (principal); M54.5 Low back pain; E11.9 Type 2 diabetes mellitus without complications; E03.9 Hypothyroidism, unspecified; M79.672 Pain in left foot; H54.61 Unqualified visual loss, right eye, normal vision left eye; Z79.82 Long term (current) use of aspirin; Z79.899 Other long term (current) drug therapy; Z79.02 Long term (current) use of antithrombotics/antiplatelets; Z88.8 Allergy status to other drugs, medicaments and biological substances; Z79.84 Long term (current) use of oral hypoglycemic drugs
CPT/HCPCS: 36415; 80053; 82947; 82962; 83605; 85025; 86580; 97110-GO; 97110-GP; 97116-GP; 97161-GP; 97165-GO; 97530-GO; 97530-GP; 97535-GO; A9270-GY